=== PATIENT | male | born 1960 ===

== ENCOUNTER 2017-10-13 05:54 | Inpatient (IN) | payer OTHER ==
[2017-10-13 05:54] VITALS: BMI 47.1
[2017-10-13] MEDS ORDERED: Albuterol-Ipratrop 3 mg / 0.5 (3 ml) UD INH STA ×2 (06:22→09:23)
--- NOTE | 2017-10-13 06:36 | ED PDOC ---
HPI: SOB/CHF/COPD Time Seen by Provider: 10/13/17 06:07 Chief Complaint (Nursing): Shortness Of Breath Chief Complaint (Provider): Shortness of Breath History Per: Patient History/Exam Limitations: no limitations Onset/Duration Of Symptoms: Gradual, Persistent, Other (x1 month) Current Symptoms Are (Timing): Still Present Current Respiratory Medications: Other (DMI) Associated Symptoms: Productive Cough. denies: Fever Recently: Treated By A Physician Additional Complaint(s): 57 year old male presents to ED with complaints of SOB x1 month and has a past medical history of CHF, asthma, pulmonary embolism, DVT, and cardiac arrhythmia. Notes that onset of SOB was after returning from [facility] for the winter holidays and that it has been progressively worsening since then. COnfirms he has followed up with PCP Dr. Aguilera and has had negative CT HEAD and CXR to rule out sinus disease. Notes no improvement in symptoms with use of MDIs. (-) fever, (+) cough productive of white phlegm. Notes recently finishing a course of augmentin. PCP: Mariano Aguilera Past Medical History Reviewed: Historical Data, Nursing Documentation, Vital Signs Vital Signs: Last Vital Signs Temp 97.9 F 10/13/17 06:02 Pulse 84 10/13/17 06:02 Resp 18 10/13/17 06:02 BP 92/46 L 10/13/17 06:02 Pulse Ox 96 10/13/17 06:02 - Medical History PMH: Asthma, Cardia Arrhythmia, CHF, Fractures (Knee Caps), HTN, Kidney Stones, Peripheral Edema, Pneumonia, Pulmonary Embolism, Sleep Apnea Denies: HIV, Chronic Kidney Disease - Surgical History Surgical History: Pacemaker - Family History Family History: States: Unknown Family Hx - Social History Current smoker - smoking cessation education provided: No Ex-Smoker (has not smoked in the last 12 months): No Alcohol: None Drugs: Denies - Home Medications Home Medications: Ambulatory Orders Medication Instructions Recorded Allopurinol [Zyloprim] 300 mg PO DAILY #0 tab 04/11/16 Apixaban [Eliquis] 10 mg PO Q12 #0 tab 04/11/16 Carvedilol [Coreg] 25 mg PO BID #0 tab 04/11/16 Cetirizine HCl [All Day Allergy 10 mg PO HS #0 tablet 04/11/16 Relief] Furosemide [Lasix] 40 mg PO DAILY #0 tab 04/11/16 Lisinopril [Zestril] 10 mg PO DAILY #0 tab 04/11/16 Mexiletine 150 mg PO TID #0 cap 04/11/16 Montelukast [Singulair] 10 mg PO HS #0 tab 04/11/16 Sotalol HCl [Sotalol] 160 mg PO BID #0 tablet 04/11/16 Spironolactone [Aldactone] 25 mg PO DAILY #0 tab 04/11/16 - Allergies Allergies/Adverse Reactions: Allergies Allergy/AdvReac Type Severity Reaction Status Date / Time grass pollen Allergy CONGESTION Verified 07/13/17 08:18 Curb-65 Severity Score - CURB-65 Severity Score Confusion: No Respiratory Rate greater than/equal to 30: No Systolic BP <90 or Diastolic BP less than/equal 60mmHg: Yes Age >64: No Curb-65 Score: 1 Percentage 30-day mortality: 2.7% Wells Criteria for PE - Wells Criteria for Pulmonary Embolism Heart Rate >100: No Previous, objectively diagnosed PE or DVT: Yes Hemoptysis: No Malignancy w/treatment within 6 months, or palliative: No Total Score: 1.5 Review of Systems ROS Statement: Except As Marked, All Systems Reviewed And Found Negative Constitutional: Negative for: Fever Respiratory: Positive for: Cough (productive of white phlegm), Shortness of Breath Physical Exam - Reviewed Nursing Documentation Reviewed: Yes Vital Signs Reviewed: Yes - Physical Exam Appears: Positive for: Non-toxic. Negative for: No Acute Distress (morbidly obese) Skin: Positive for: Normal Color, Warm, Dry Eye Exam: Positive for: Normal appearance ENT: Positive for: Normal ENT Inspection Neck: Positive for: Normal Cardiovascular/Chest: Positive for: Regular Rate, Rhythm. Negative for: Murmur Respiratory: Positive for: Normal Breath Sounds, Respiratory Distress (mild respiratory distress) Pulses-Dorsalis Pedis (L): 1+ Pulses-Dorsalis Pedis (R): 1+ Gastrointestinal/Abdominal: Positive for: Soft. Negative for: Tenderness Extremity: Positive for: Normal ROM, Swelling (bilateral lower extremity edema ) . Negative for: Deformity Neurologic/Psych: Positive for: Alert, Oriented. Negative for: Motor/Sensory Deficits - ECG O2 Sat by Pulse Oximetry: 96 (RA) Pulse Ox Interpretation: Normal Medical Decision Making Medical Decision Makin Initial impression: respiratory distress in setting of known CHF, asthma, and history of PE Initial plan: * CT ANGIO CHEST PE PROTOCOL * EKG * BNP * Lact acid, plasma * Trop I * Labs * PTT/PT * CXR * Duonebs 3mL INH * Solumedrol 125mg IVP * BCx * Peak Flow pre/post Tx * US DUPLEX LOWER EXTRM VEIN BILAT * Re-eval 07 Patient will be signed out to Dr. Sierra pending ED work up. Scribe Attestation: Documented by Jaleesa Escalante acting as a scribe for Evan Mcallister MD. Scribe Attestation: All medical record entries made by the Scribe were at my direction and personally dictated by me. I have reviewed the chart and agree that the record accurately reflects my personal performance of the history, physical exam, medical decision making, and the department course for this patient. I have also personally directed, reviewed, and agree with the discharge instructions and disposition. Disposition - Disposition Disposition: Transfer of Care Disposition Time: 07:00 Condition: FAIR Patient Signed Over To: Cheo Sierra Handoff Comments: pending ED work up (CT, US, labs)
[2017-10-13 06:40] LABS: BASO # 0.1 K/uL (0.0-0.2); BASO % 1.1 % (0.0-2.0); EOS # 0.1 K/uL (0.0-0.7); EOS % 1.3 % (0.0-4.0); HEMOGLOBIN 15.1 g/dL (12.0-18.0); LYMPH # 1.8 K/uL (1.0-4.3); LYMPH % 20.9 % (20.0-40.0); MEAN CELL VOLUME 97.1 fl (80.0-94.0); MEAN CORPUSCULAR HEMOGLOBIN 32.6 pg (27.0-31.0); MEAN CORPUSCULAR HGB CONC 33.5 g/dL (33.0-37.0); MEAN PLATELET VOLUME 9.3 fl (7.2-11.7); MONO % 11.8 % (0.0-10.0); NEUT # 5.7 K/uL (1.8-7.0); NEUT % 64.9 % (50.0-75.0); NRBC % 0.2 % (0.0-0.0); RBC 4.64 Mil/uL (4.40-5.90); RED CELL DISTRIBUTION WIDTH 18.4 % (11.5-14.5); WHITE BLOOD COUNT 8.8 K/uL (4.8-10.8)
[2017-10-13 06:49] LABS: ALB/GLOB RATIO 1.1 (1.0-2.1); ALBUMIN 3.6 g/dL (3.5-5.0); ALT/SGPT 31 U/L (21-72); AST/SGOT 21 U/L (17-59); BLOOD UREA NITROGEN 24 mg/dl (9-20); CALCIUM 9.3 mg/dL (8.4-10.2); GFR AFRICAN-AMERICAN > 60; GFR NON-AFRICAN AMERICAN > 60
[2017-10-13 07:01] LABS: B-TYPE NATRIURETIC PEPTIDE 2940 pg/ml (0-900)
[2017-10-13 07:07] LABS: PARTIAL THROMBOPLASTIN TIME 31.2 Seconds (25.6-37.1); PROTHROMBIN TIME 22.8 Seconds (9.8-13.1)
[2017-10-13] MEDS ORDERED: Iodixanol 320 mg/ml 50 ml Sol IV ONE ×3 (07:29)
[2017-10-13] MEDS ORDERED: Sodium Chloride 0.9% 50 ML IV ONE (07:30)
--- NOTE | 2017-10-13 08:29 | CARD ---
APPROVED REPORT EKG Measurement Heart [id number] HI P36 [id number] <Conclusion> Ventricular-paced rhythm with frequent premature ventricular complexes Abnormal ECG
[2017-10-13] MEDS ORDERED: Albuterol-Ipratrop 3 mg / 0.5 (3 ml) UD ONE (08:49)
[2017-10-13] MEDS ORDERED: Sodium Chloride 0.9% 500 ML IV ONE (08:49)
--- NOTE | 2017-10-13 09:06 | US ---
PROCEDURE: Bilateral lower extremity venous duplex Doppler. HISTORY: hx DVT COMPARISON: Lower extremity ultrasound dated 04/08/2016. TECHNIQUE: Bilateral common femoral, superficial femoral, popliteal and posterior tibial veins were evaluated. Flow was assessed with color Doppler, compressibility, assessment of phasic flow and augmentation response. FINDINGS: COMMON FEMORAL VEIN: Right CFV: Unremarkable. Left CFV: Unremarkable. SUPERFICIAL FEMORAL VEIN: Right SFV: Unremarkable. Left SFV: Unremarkable. POPLITEAL VEIN: Right Popliteal: Unremarkable. Left Popliteal: Peripherally oriented echogenic material with compressibility and Doppler flow compatible. POSTERIOR TIBIAL VEIN: Right PTV: Unremarkable. Left PTV: Peripherally oriented echogenic material with compressibility and doppler flow. OTHER FINDINGS: None. IMPRESSION: No evidence of acute deep venous thrombosis.
--- NOTE | 2017-10-13 09:36 | CT ---
PROCEDURE: CT Chest with contrast (Pulmonary Angiogram) HISTORY: chest pain r/o PE COMPARISON: Plain radiograph performed earlier the same day. TECHNIQUE: Axial computed tomography images were obtained of the chest in the pulmonary arterial phase of enhancement. Coronal and sagittal reformatted images were created and reviewed. Intravenous contrast dose: 99 cc Visipaque 320 Radiation dose: Total exam DLP = 482.49 mGy-cm. This CT exam was performed using one or more of the following dose reduction techniques: Automated exposure control, adjustment of the mA and/or kV according to patient size, and/or use of iterative reconstruction technique. FINDINGS: PULMONARY ARTERIES: There are no filling defects in the pulmonary arteries to suggest acute pulmonary embolism. AORTA: No thoracic aortic aneurysm. LUNGS: There is no evidence for consolidation for mass. There are no endobronchial lesions. There is minimal subsegmental atelectasis in the right lung base. PLEURAL SPACES: No pleural effusions or pneumothorax HEART: There is moderate cardiomegaly. No pericardial effusion. LYMPH NODES: No lymphadenopathy. BONES, CHEST WALL: Within normal limits for the patient's age. No fracture or destructive lesion OTHER FINDINGS: Unremarkable. IMPRESSION: No CTA evidence for acute pulmonary embolism. No consolidation, pleural effusion or pneumothorax.
--- NOTE | 2017-10-13 11:11 | RAD ---
HISTORY: Chest pain COMPARISON: 09/16/2017 FINDINGS: LUNGS: The lungs are well inflated. There is interval improvement in pulmonary venous congestion. PLEURA: No significant pleural effusion identified, no pneumothorax apparent. CARDIOVASCULAR: Again seen is severe cardiomegaly. There is stable position of left-sided permanent pacing device. OSSEOUS STRUCTURES: No significant abnormalities. VISUALIZED UPPER ABDOMEN: Normal. OTHER FINDINGS: None. IMPRESSION: No active pulmonary disease. Persistent severe cardiomegaly.
[2017-10-13] MEDS ORDERED: LEVALBUTEROL TARTRATE INH PRN (13:30)
[2017-10-13] MEDS: Albuterol-Ipratrop 3 mg / 0.5 (3 ml) UD INH SCH ×2 (15:51→19:07)
[2017-10-13] MEDS ORDERED: SOTALOL HCL 160 MG PO SCH (17:00)
[2017-10-13] MEDS ORDERED: MOMETASONE FUROATE INH SCH (17:00)
--- NOTE | 2017-10-13 17:58 | CP.PCM.CON ---
History of Present Illness - History of Present Illness History of Present Illness: This 57-year-old white male of [place] ancestry was seen in the emergency department where he was advised to present for evaluation of worsening dyspnea both on exertion and while at rest associated with increasing dependent edema of the lower extremities. He has been ill for the past 2 weeks with the above symptoms and treated successfully for an episode of maxillary sinusitis. He had been given Augmentin 875 twice daily with improvement in his upper airway symptoms and a CT scan performed afterwards which showed no air-fluid levels indicating no acute sinusitis. His dyspnea and dependent edema did not improve and he was advised to present to the emergency department. He denied chest pain or hemoptysis. Does suffer from obstructive sleep apnea and has been using his nasal CPAP nightly. He continues to take all his prescribed medications as directed. Review of Systems - Review of Systems All systems: reviewed and no additional remarkable complaints except - Constitutional Constitutional: Fatigue, Sleep Apnea, Weight Gain - EENT Ears: Ear Pain Nose/Mouth/Throat: Nasal Congestion - Cardiovascular Cardiovascular: Dyspnea on Exertion, Leg Edema, Orthopnea - Respiratory Respiratory: Cough, Dyspnea, Wheezing Past Patient History - Infectious Disease Hx of Infectious Diseases: None - Tetanus Immunizations Tetanus Immunization: Unknown - Past Medical History & Family History Past Medical History?: Yes Pertinent Family History: Coronary artery disease - Past Social History Smoking Status: Never Smoked Chewing Tobacco Use: No Cigar Use: No Alcohol: Social Drugs: Denies Home Situation {Lives}: With Family - CARDIAC Hx Cardia Arrhythmia: Yes Hx Congestive Heart Failure: Yes Hx Internal Defibrillator: Yes Hx Pacemaker: Yes Hx Peripheral Edema: Yes Other/Comment: Dilated cardiomyopathy - PULMONARY Hx Asthma: Yes Hx Pulmonary Embolism: Yes Hx Respiratory Tract Infection: Yes Hx Sleep Apnea: Yes - NEUROLOGICAL Hx Neurological Disorder: No - HEENT Hx Sinusitis: Yes Other/Comment: glasses - RENAL Hx Chronic Kidney Disease: No - ENDOCRINE/METABOLIC Other/Comment: Exogenous obesity - HEMATOLOGICAL/ONCOLOGICAL Hx Blood Disorders: No - INTEGUMENTARY Hx Dermatological Problems: No - MUSCULOSKELETAL/RHEUMATOLOGICAL Hx Falls: No Hx Gout: Yes (Hyperuricemia) - GASTROINTESTINAL Hx Gastrointestinal Disorders: No - GENITOURINARY/GYNECOLOGICAL Hx Genitourinary Disorders: No - PSYCHIATRIC Hx Psychophysiologic Disorder: No Hx Substance Use: No - SURGICAL HISTORY Other/Comment: defibrillator/pacemaker insertion - ANESTHESIA Hx Anesthesia: Yes Hx Anesthesia Reactions: No Hx Malignant Hyperthermia: No Has any member of the family had a problem w/ anesthesia?: No Meds Allergies/Adverse Reactions: Allergies Allergy/AdvReac Type Severity Reaction Status Date / Time grass pollen Allergy CONGESTION Verified 07/13/17 08:18 - Medications Medications: Current Medications Acetaminophen (Tylenol 325mg Tab) 650 mg PO Q6 PRN PRN Reason: Pain, Mild (1-3) Albuterol/Ipratropium (Duoneb 3 Mg/0.5 Mg (3 Ml) Ud) 3 ml INH RQID [facility] Last Admin: 10/13/17 15:51 Dose: 3 ml Allopurinol (Zyloprim) 300 mg PO DAILY [facility] Apixaban (Eliquis) 5 mg PO Q12 [facility] PRN Reason: Protocol Carvedilol (Coreg) 25 mg PO BID [facility] Last Admin: 10/13/17 16:20 Dose: Not Given Home Med (Mometasone Furoate [Asmanex Hfa]) 2 inh INH BID [facility] Lisinopril (Zestril) 10 mg PO DAILY [facility] Last Admin: 10/13/17 16:26 Dose: Not Given Loratadine (Claritin) 10 mg PO DAILY [facility] Mexiletine HCl (Mexiletine) 150 mg PO TID [facility] Last Admin: 10/13/17 16:22 Dose: 150 mg Montelukast Sodium (Singulair) 10 mg PO HS [facility] Sotalol HCl (Betapace) 160 mg PO BID [facility] Last Admin: 10/13/17 16:25 Dose: 160 mg Spironolactone (Aldactone) 25 mg PO DAILY [facility] Tiotropium [place] (Spiriva) 1,000 mcg INH DAILY [facility] Physical Exam - Additional Findings Additional findings: Obese white male who is dyspneic while at rest. Flushed facies. 2+ dependent edema both lower extremities extending from both feet to distal mid calf bilaterally. No cyanosis. No palpable venous cords. No palpable lymphadenopathy. Conjunctivae are pink and there is no scleral icterus. Nasal passages are patent bilaterally. No bleeding or exudate. No tenderness over the maxillary sinuses. Neck is supple and trachea is midline. No palpable thyromegaly. Carotid pulses are well felt and there is no bruit. Pharynx is pink and mucous membranes are moist. No exudate. No dullness on chest percussion. Equal expansion. Breath sounds are well heard bilaterally without any audible wheezing. No bronchial breath sounds or egophony. Few dry rales are heard in the dependent zones bilaterally. Heart sounds are distant and the rhythm is regular. No murmur is heard. Abdomen is obese, nontender with normal bowel sounds. Liver edge is palpable and nontender. Results - Vital Signs Recent Vital Signs: Last Vital Signs Temp 97.9 F 10/13/17 15:53 Pulse 70 10/13/17 16:25 Resp 20 10/13/17 15:53 BP 93/60 L 10/13/17 16:26 Pulse Ox 95 10/13/17 15:53 - Labs Result Diagrams: 10/14/17 04:45 10/15/17 04:55 Labs: Laboratory Results - last 24 hr 10/13/17 10/13/17 10/13/17 06:20 06:20 06:20 WBC 8.8 RBC 4.64 Hgb 15.1 Hct 45.1 MCV 97.1 H D MCH 32.6 H MCHC 33.5 RDW 18.4 H Plt Count 198 MPV 9.3 Neut % (Auto) 64.9 Lymph % (Auto) 20.9 [place] % (Auto) 11.8 H Eos % (Auto) 1.3 Baso % (Auto) 1.1 Neut # 5.7 Lymph # 1.8 Dare # 1.0 H Eos # 0.1 Baso # 0.1 PT INR APTT Sodium 136 Potassium 4.1 Chloride 99 Carbon Dioxide 27 Anion Gap 14 BUN 24 H Creatinine 1.1 Est GFR ( Amer) > 60 Est GFR (Non-Af Amer) > 60 Random Glucose 98 Lactic Acid 1.7 Calcium 9.3 Total Bilirubin 1.6 H AST 21 ALT 31 Alkaline Phosphatase 41 Troponin I 0.0690 NT-Pro-B Natriuret Pep 2940 H Total Protein 6.8 Albumin 3.6 Globulin 3.2 Albumin/Globulin Ratio 1.1 Influenza Typ A,B (EIA) 10/13/17 10/13/17 06:20 06:40 WBC RBC Hgb Hct MCV MCH MCHC RDW Plt Count MPV Neut % (Auto) Lymph % (Auto) [place] % (Auto) Eos % (Auto) Baso % (Auto) Neut # Lymph # Dare # Eos # Baso # PT 22.8 H INR 2.0 H APTT 31.2 Sodium Potassium Chloride Carbon Dioxide Anion Gap BUN Creatinine Est GFR ( Amer) Est GFR (Non-Af Amer) Random Glucose Lactic Acid Calcium Total Bilirubin AST ALT Alkaline Phosphatase Troponin I NT-Pro-B Natriuret Pep Total Protein Albumin Globulin Albumin/Globulin Ratio Influenza Typ A,B (EIA) Negative for flu a/b Assessment & Plan (1) Dilated cardiomyopathy Status: Chronic Priority: High (2) CHF (congestive heart failure) Status: Acute Priority: High (3) Left leg DVT Status: Chronic Priority: High (4) Pulmonary embolism Status: Resolved (5) Asthma Status: Chronic Priority: High (6) Obstructive sleep apnea syndrome in adult Status: Chronic Priority: High - Assessment and Plan (Free Text) Plan: Supplemental oxygen as needed. Cautious use of bronchodilators in view of significant cardiac arrhythmia. Parenteral corticosteroids. Maintain oral anticoagulation. Continued use of nasal CPAP. Cardiac evaluation and further therapy as needed. - Date & Time Date: 10/13/17 Time: 17:58
--- NOTE | 2017-10-13 18:58 | CP.PCM.HP ---
History of Present Illness - History of Present Illness History of Present Illness: This is a 57 year old male with a past medical history of CHF, DVT/PE 3 years ago, now on Eliquis indefinitely, obesity, asthma, polycythemia, history of cardiac arrhythmia for which he has pacemaker/defibrillator, presenting with worsening shortness of breath over the course of about a month. The patient states that he has been getting worsening orthopnea over the last 2 weeks and has had difficulty sleeping even in a chair. He is to the point where he is unable to walk up stairs without stopping due to his dyspnea. He was recently given Augmentin by Dr. Aguilera for URI, productive cough. In the ED, the patient was found to have labored breathing with resp rate of 22 saturating 96% on 2 liters. He was given lasix and nebulizer tx with minimal improvement in his breathing. CXR shows vascular congestion but no pleural effusions. BNP is significantly elevated at 2940. Given his acute on chronic CHF exacerbation and fluid overload, he is to be admitted for further diuresis, close observation, and workup from Dr. David Saunders (cardiology) and Dr. Aguilera (pulmonary). Present on Admission - Present on Admission Any Indicators Present on Admission: Yes History of DVT/PE: Yes Review of Systems - Review of Systems Review of Systems: A 12 point review of systems was conducted and found to be negative other than what was mentioned in HPI Past Patient History - Infectious Disease Hx of Infectious Diseases: None - Tetanus Immunizations Tetanus Immunization: Unknown - Past Medical History & Family History Past Medical History?: Yes - Past Social History Smoking Status: Never Smoked - CARDIAC Hx Cardiac Disorders: Yes Hx Cardia Arrhythmia: Yes Hx Congestive Heart Failure: Yes Hx Internal Defibrillator: Yes Hx Pacemaker: Yes - PULMONARY Hx Respiratory Disorders: Yes Hx Asthma: Yes Hx Pulmonary Embolism: Yes Hx Respiratory Tract Infection: Yes Hx Sleep Apnea: Yes Other/Comment: obesity - NEUROLOGICAL Hx Neurological Disorder: No - HEENT Hx HEENT Problems: No Other/Comment: glasses - RENAL Hx Chronic Kidney Disease: No - ENDOCRINE/METABOLIC Hx Endocrine Disorders: No - HEMATOLOGICAL/ONCOLOGICAL Hx Blood Disorders: No - INTEGUMENTARY Hx Dermatological Problems: No - MUSCULOSKELETAL/RHEUMATOLOGICAL Hx Musculoskeletal Disorders: Yes Hx Falls: No - GASTROINTESTINAL Hx Gastrointestinal Disorders: No - GENITOURINARY/GYNECOLOGICAL Hx Genitourinary Disorders: No - PSYCHIATRIC Hx Psychophysiologic Disorder: No Hx Substance Use: No - SURGICAL HISTORY Other/Comment: defibrillator/pacemaker insertion - ANESTHESIA Hx Anesthesia: Yes Hx Anesthesia Reactions: No Hx Malignant Hyperthermia: No Has any member of the family had a problem w/ anesthesia?: No Meds Allergies/Adverse Reactions: Allergies Allergy/AdvReac Type Severity Reaction Status Date / Time grass pollen Allergy CONGESTION Verified 07/13/17 08:18 Physical Exam - Additional Findings Additional findings: Physical exam: Constitutional- cooperative, awake, alert. OOB to chair Head- NCAT, PERRL Eye- PERRL, EOMI ENT- normal exam, MMM. Neck- normal inspection, supple, no JVD Respiratory- + Mild wheezing, bibasilar rales. labored breathing Cardiovascular- RRR, +S1, +S2 no MRG. + Pacemaker/defibrillator GI/Abdominal- Morbidly obese. normal bowel sounds, soft, no mass, no hsm Skin- warm, dry Extremities Exam- normal capillary refill, normal inspection Neurological Exam- alert, awake, oriented Psych- normal mood, normal affect Results - Vital Signs Recent Vital Signs: Last Vital Signs Temp 97.9 F 10/13/17 15:53 Pulse 70 10/13/17 16:25 Resp 20 10/13/17 15:53 BP 93/60 L 10/13/17 16:26 Pulse Ox 95 10/13/17 15:53 - Labs Result Diagrams: 10/13/17 06:20 10/13/17 06:20 Labs: Laboratory Results - last 24 hr 10/13/17 10/13/17 10/13/17 06:20 06:20 06:20 WBC 8.8 RBC 4.64 Hgb 15.1 Hct 45.1 MCV 97.1 H D MCH 32.6 H MCHC 33.5 RDW 18.4 H Plt Count 198 MPV 9.3 Neut % (Auto) 64.9 Lymph % (Auto) 20.9 [place] % (Auto) 11.8 H Eos % (Auto) 1.3 Baso % (Auto) 1.1 Neut # 5.7 Lymph # 1.8 [place] # 1.0 H Eos # 0.1 Baso # 0.1 PT INR APTT Sodium 136 Potassium 4.1 Chloride 99 Carbon Dioxide 27 Anion Gap 14 BUN 24 H Creatinine 1.1 Est GFR ( Amer) > 60 Est GFR (Non-Af Amer) > 60 Random Glucose 98 Lactic Acid 1.7 Calcium 9.3 Total Bilirubin 1.6 H AST 21 ALT 31 Alkaline Phosphatase 41 Troponin I 0.0690 NT-Pro-B Natriuret Pep 2940 H Total Protein 6.8 Albumin 3.6 Globulin 3.2 Albumin/Globulin Ratio 1.1 Influenza Typ A,B (EIA) 10/13/17 10/13/17 06:20 06:40 WBC RBC Hgb Hct MCV MCH MCHC RDW Plt Count MPV Neut % (Auto) Lymph % (Auto) [place] % (Auto) Eos % (Auto) Baso % (Auto) Neut # Lymph # [place] # Eos # Baso # PT 22.8 H INR 2.0 H APTT 31.2 Sodium Potassium Chloride Carbon Dioxide Anion Gap BUN Creatinine Est GFR ( Amer) Est GFR (Non-Af Amer) Random Glucose Lactic Acid Calcium Total Bilirubin AST ALT Alkaline Phosphatase Troponin I NT-Pro-B Natriuret Pep Total Protein Albumin Globulin Albumin/Globulin Ratio Influenza Typ A,B (EIA) Negative for flu a/b Assessment & Plan - Assessment and Plan (Free Text) Plan: ASSESSMENT 1) CHF exacerbation and fluid overload, last known echo - Echo 04/09/2016: moderately dilated LV, mild to moderate LVH, EF 20-25%, global hypokinesis of LV. Hypotension - Admit to cardiac telemetry - Consultation with Dr. David Saunders - Continue Lasix 40 mg po daily and is being given 20 mg IV today. Patient hypotensive around 93/60, diuresing carefully - I & O - Daily weights - Echo in AM - Daily EKG 2) Asthma exacerbation - Dr. Aguilera on consultation - [place]fr[place] tx - continue advair, mometasone - Monitor pulse ox 3) History of left leg DVT/PE on Eliquis indefinitely - Continue Eliquis - Chronic 4) History of RICARDO in adult - CPAP HS - May use own cpap if he brings from home 5) Obesity - Chronic 6) History of unspecified cardiac arrhythmia with pacemaker/defibrillation placement 7) DVT prophylaxis - Eliquis
[2017-10-13] MEDS ORDERED: methylPREDNISolone 30 MG in Sodium Chloride 0.9% 50 ML IVPB SCH (19:00)
[2017-10-13] MEDS: MethylPREDNISolone 40 mg Vial IVP SCH (21:03)
[2017-10-14] MEDS: MethylPREDNISolone 40 mg Vial IVP SCH ×2 (05:00→20:46)
[2017-10-14 07:02] LABS: HEMOGLOBIN 14.3 g/dL (12.0-18.0); MEAN CELL VOLUME 97.6 fl (80.0-94.0); MEAN CORPUSCULAR HEMOGLOBIN 32.7 pg (27.0-31.0); MEAN CORPUSCULAR HGB CONC 33.5 g/dL (33.0-37.0); RBC 4.37 Mil/uL (4.40-5.90); RED CELL DISTRIBUTION WIDTH 18.2 % (11.5-14.5); WHITE BLOOD COUNT 13.4 K/uL (4.8-10.8)
[2017-10-14 07:34] LABS: BLOOD UREA NITROGEN 32 mg/dl (9-20); CALCIUM 9.4 mg/dL (8.4-10.2); GFR AFRICAN-AMERICAN > 60; GFR NON-AFRICAN AMERICAN > 60
[2017-10-14] MEDS: Albuterol-Ipratrop 3 mg / 0.5 (3 ml) UD INH SCH ×2 (08:41→11:20)
[2017-10-14] MEDS: Tiotropium 18 mcg Cap For Inhalation INH SCH (09:00)
--- NOTE | 2017-10-14 09:45 | CP.PCM.CON ---
History of Present Illness - History of Present Illness History of Present Illness: This 57-year-old chronically overweight man with congestive cardiomyopathy and severe bronchial asthma, chronic exogenous obesity and obstructive sleep apnea as well as chronic atrial fibrillation and a history of pulmonary embolism who has had an AICD implanted more than 8 years back, was hospitalized for profound shortness of breath after he was found to have developed upper respiratory infection following an eight-day vacation in [facility]. The patient had been given oral corticosteroid-induced for severe bronchial asthma/bronchitis and the patient had rapidly gained weight and developed profound shortness of breath, finally requiring him to come to the emergency room. Following bronchodilates retreatment and intravenous diuretics his coughing spells and dyspnea has become less, though the patient has not been very active after being hospitalized. He has used his CPAP machine last night and slept well. This morning the patient was found to be sitting up at the edge of the bed eating his breakfast but continued to have protracted coughing spells followed by profound dyspnea. Physical examination shows is markedly OBs young man sitting up eating his breakfast. Afebrile with a pulse rate of 76 bpm irregularly irregular with a blood pressure of 102/74 mmHg. His jugular venous pressure could not be evaluated because of a short thick neck. There was presence of pitting pedal edema on both sides. His pedal pulses were difficult to palpate. Extremities were warm nailbeds were pink. There was no central or peripheral cyanosis. He does respite atrial rate was 18-20 breaths per minute but he could carry on a conversation. The apex was not palpable. The first and second heart sounds were distant. His expiration was prolonged and there were scattered crepitations and rhonchi audible all over his chest. His abdomen was quite protuberant his liver and spleen could not be palpated. His electro-cardiogram showed atrial fibrillation with a VVI paced rhythm with evidence of biventricular pacing. His lab data was reviewed. His serum potassium level was 5 mg/L. His chest x-ray and CT of the chest were also reviewed. Impression: Acute exacerbation of bronchospasm following an upper respiratory tract infection, in a patient with a long history of bronchial asthma. Congestive cardiac myopathy with chronic atrial fibrillation and status post AICD implant. Obstructive sleep apnea. Marked exogenous obesity. The patient is being aggressively treated for bronchospasm and upper respiratory tract infection. I have adjusted his diuretics therapy given a history of long-standing systolic blood pressure in the range of 80-90 mmHg. I have discussed his case with Dr. Aguilera and adjusted his medications appropriately. Past Patient History - Infectious Disease Hx of Infectious Diseases: None - Tetanus Immunizations Tetanus Immunization: Unknown - Past Medical History & Family History Past Medical History?: Yes - Past Social History Smoking Status: Never Smoked - CARDIAC Hx Cardiac Disorders: Yes Hx Cardia Arrhythmia: Yes Hx Congestive Heart Failure: Yes Hx Internal Defibrillator: Yes Hx Pacemaker: Yes - PULMONARY Hx Respiratory Disorders: Yes Hx Asthma: Yes Hx Pulmonary Embolism: Yes Hx Respiratory Tract Infection: Yes Hx Sleep Apnea: Yes Other/Comment: obesity - NEUROLOGICAL Hx Neurological Disorder: No - HEENT Hx HEENT Problems: No Other/Comment: glasses - RENAL Hx Chronic Kidney Disease: No - ENDOCRINE/METABOLIC Hx Endocrine Disorders: No - HEMATOLOGICAL/ONCOLOGICAL Hx Blood Disorders: No - INTEGUMENTARY Hx Dermatological Problems: No - MUSCULOSKELETAL/RHEUMATOLOGICAL Hx Musculoskeletal Disorders: Yes Hx Falls: No - GASTROINTESTINAL Hx Gastrointestinal Disorders: No - GENITOURINARY/GYNECOLOGICAL Hx Genitourinary Disorders: No - PSYCHIATRIC Hx Psychophysiologic Disorder: No Hx Substance Use: No - SURGICAL HISTORY Other/Comment: defibrillator/pacemaker insertion - ANESTHESIA Hx Anesthesia: Yes Hx Anesthesia Reactions: No Hx Malignant Hyperthermia: No Has any member of the family had a problem w/ anesthesia?: No Meds Allergies/Adverse Reactions: Allergies Allergy/AdvReac Type Severity Reaction Status Date / Time grass pollen Allergy CONGESTION Verified 07/13/17 08:18 - Medications Medications: Current Medications Acetaminophen (Tylenol 325mg Tab) 650 mg PO Q6 PRN PRN Reason: Pain, Mild (1-3) Albuterol/Ipratropium (Duoneb 3 Mg/0.5 Mg (3 Ml) Ud) 3 ml INH RQID [facility] Last Admin: 10/14/17 08:41 Dose: 3 ml Allopurinol (Zyloprim) 300 mg PO DAILY [facility] Apixaban (Eliquis) 5 mg PO Q12 [facility] PRN Reason: Protocol Last Admin: 10/13/17 21:02 Dose: 5 mg Carvedilol (Coreg) 25 mg PO BID [facility] Furosemide (Lasix) 40 mg IVP BID [facility] Home Med (Mometasone Furoate [Asmanex Hfa]) 2 inh INH BID [facility] Lisinopril (Zestril) 10 mg PO DAILY [facility] Loratadine (Claritin) 10 mg PO DAILY [facility] Methylprednisolone (Solu-Medrol) 30 mg IVP Q8@0500,1300,2100 [facility] Mexiletine HCl (Mexiletine) 150 mg PO TID [facility] Last Admin: 10/13/17 16:22 Dose: 150 mg Montelukast Sodium (Singulair) 10 mg PO HS [facility] Last Admin: 10/13/17 21:02 Dose: 10 mg Sotalol HCl (Betapace) 160 mg PO BID [facility] Spironolactone (Aldactone) 25 mg PO DAILY [facility] Tiotropium [place] (Spiriva) 18 mcg INH DAILY [facility] Results - Vital Signs Recent Vital Signs: Last Vital Signs Temp 97.3 F L 10/14/17 08:27 Pulse 66 10/14/17 08:27 Resp 20 10/14/17 08:27 BP 90/50 L 10/14/17 08:27 Pulse Ox 96 10/14/17 08:27 - Labs Result Diagrams: 10/14/17 04:45 10/14/17 04:45 Labs: Laboratory Results - last 24 hr 10/14/17 10/14/17 04:45 04:45 WBC 13.4 H D RBC 4.37 L Hgb 14.3 Hct 42.7 MCV 97.6 H MCH 32.7 H MCHC 33.5 RDW 18.2 H Plt Count 185 Sodium 139 Potassium 5.0 Chloride 102 Carbon Dioxide 27 Anion Gap 15 BUN 32 H Creatinine 1.1 Est GFR ( Amer) > 60 Est GFR (Non-Af Amer) > 60 Random Glucose 163 H Calcium 9.4
--- NOTE | 2017-10-14 12:18 | CP.PCM.PN ---
Subjective - Date & Time of Evaluation Date of Evaluation: 10/14/17 Time of Evaluation: 12:16 - Subjective Subjective: Seen earlier this morning, asleep, wearing nCPAP. Returned to his room later for exam and he was seated in a bedside chair. He appears comfortable at rest, but does develop SOB with conversation. He does admit to having a good night's sleep, the first in a number of days. He was seen by cardiology this morning as well. Vital signs have been stable and he has been afebrile. He has a borderline low blood pressure chronically because of his medical regimen. CTA chest done yesterday in the ER did not show any pulmonary emboli or infiltrates. Dependant edema of both LE's has decreased significantly from admission. There is no cyanosis and the extremities are warm to the touch. Neck is supple and no adenopathy is palpable. Pharynx remains pink and moist w/o exudate. No dullness on percussion anteriorly or posterorly. Breath sounds are present bilaterally w/o audible wheezing. The expiratory phase is still prolonged, few lower lobe medium rales are present bilaterally. Heart sounds are distant and regular. Abdomen is soft, fleshy and obese with normal bowel sounds. Echocardiogram has been requested. If any pulmonary hypertension identified we'll ask for V/Q lung scan as well. Will continue LAMA therapy, but change beta agonist to low dose levalbuterol ( arrhythmia potential). Non-specific beta blockade may be impacting negatively on his underlying lung function; will monitor. Objective - Vital Signs/Intake and Output Vital Signs (last 24 hours): Temp Pulse Resp BP Pulse Ox 96.9 F L 72 18 95/62 L 94 L 10/14/17 11:49 10/14/17 11:49 10/14/17 11:49 10/14/17 11:49 10/14/17 11:49 - Medications Medications: Current Medications Acetaminophen (Tylenol 325mg Tab) 650 mg PO Q6 PRN PRN Reason: Pain, Mild (1-3) Albuterol/Ipratropium (Duoneb 3 Mg/0.5 Mg (3 Ml) Ud) 3 ml INH RQID [facility] Last Admin: 10/14/17 11:20 Dose: 3 ml Allopurinol (Zyloprim) 300 mg PO DAILY [facility] Last Admin: 10/14/17 09:00 Dose: 300 mg Apixaban (Eliquis) 5 mg PO Q12 [facility] PRN Reason: Protocol Last Admin: 10/14/17 10:14 Dose: 5 mg Carvedilol (Coreg) 25 mg PO BID [facility] Furosemide (Lasix) 40 mg IVP BID [facility] Home Med (Mometasone Furoate [Asmanex Hfa]) 2 inh INH BID [facility] Lisinopril (Zestril) 10 mg PO DAILY [facility] Loratadine (Claritin) 10 mg PO DAILY [facility] Last Admin: 10/14/17 09:00 Dose: 10 mg Methylprednisolone (Solu-Medrol) 30 mg IVP Q8@0500,1300,2100 [facility] Mexiletine HCl (Mexiletine) 150 mg PO TID [facility] Last Admin: 10/14/17 09:00 Dose: 150 mg Montelukast Sodium (Singulair) 10 mg PO HS [facility] Last Admin: 10/13/17 21:02 Dose: 10 mg Sotalol HCl (Betapace) 160 mg PO BID [facility] Spironolactone (Aldactone) 25 mg PO DAILY [facility] Last Admin: 10/14/17 09:00 Dose: 25 mg Tiotropium [place] (Spiriva) 18 mcg INH DAILY [facility] Last Admin: 10/14/17 09:00 Dose: 18 mcg - Labs Labs: 10/14/17 04:45 10/14/17 04:45 PT 22.8 Seconds (9.8-13.1) H 10/13/17 06:20 INR 2.0 (0.9-1.2) H 10/13/17 06:20 APTT 31.2 Seconds (25.6-37.1) 10/13/17 06:20
--- NOTE | 2017-10-14 12:39 | CP.PCM.PN ---
Subjective - Date & Time of Evaluation Date of Evaluation: 10/14/17 Time of Evaluation: 12:00 - Subjective Subjective: No fever dyspnea on exertion - able to go to the bathroom off Oxygen however feels very SOB coming back noticed pt has to stop to catch breath while talking no CP no abd pain Pedal edema better Objective - Vital Signs/Intake and Output Vital Signs (last 24 hours): Temp Pulse Resp BP Pulse Ox 96.9 F L 72 18 95/62 L 94 L 10/14/17 11:49 10/14/17 11:49 10/14/17 11:49 10/14/17 12:18 10/14/17 11:49 - Medications Medications: Current Medications Acetaminophen (Tylenol 325mg Tab) 650 mg PO Q6 PRN PRN Reason: Pain, Mild (1-3) Albuterol/Ipratropium (Duoneb 3 Mg/0.5 Mg (3 Ml) Ud) 3 ml INH RQID [facility] Last Admin: 10/14/17 11:20 Dose: 3 ml Allopurinol (Zyloprim) 300 mg PO DAILY [facility] Last Admin: 10/14/17 09:00 Dose: 300 mg Apixaban (Eliquis) 5 mg PO Q12 [facility] PRN Reason: Protocol Last Admin: 10/14/17 10:14 Dose: 5 mg Carvedilol (Coreg) 25 mg PO BID [facility] Furosemide (Lasix) 40 mg IVP BID [facility] Last Admin: 10/14/17 12:18 Dose: 40 mg Home Med (Mometasone Furoate [Asmanex Hfa]) 2 inh INH BID [facility] Lisinopril (Zestril) 10 mg PO DAILY [facility] Loratadine (Claritin) 10 mg PO DAILY [facility] Last Admin: 10/14/17 09:00 Dose: 10 mg Methylprednisolone (Solu-Medrol) 30 mg IVP Q8@0500,1300,2100 [facility] Mexiletine HCl (Mexiletine) 150 mg PO TID [facility] Last Admin: 10/14/17 09:00 Dose: 150 mg Montelukast Sodium (Singulair) 10 mg PO HS [facility] Last Admin: 10/13/17 21:02 Dose: 10 mg Sotalol HCl (Betapace) 160 mg PO BID [facility] Spironolactone (Aldactone) 25 mg PO DAILY [facility] Last Admin: 10/14/17 09:00 Dose: 25 mg Tiotropium [place] (Spiriva) 18 mcg INH DAILY [facility] Last Admin: 10/14/17 09:00 Dose: 18 mcg - Labs Labs: 10/14/17 04:45 10/14/17 04:45 PT 22.8 Seconds (9.8-13.1) H 10/13/17 06:20 INR 2.0 (0.9-1.2) H 10/13/17 06:20 APTT 31.2 Seconds (25.6-37.1) 10/13/17 06:20 - Constitutional Appears: No Acute Distress - Head Exam Head Exam: NORMAL INSPECTION, NORMOCEPHALIC - Eye Exam Eye Exam: EOMI, Normal appearance, PERRL Pupil Exam: NORMAL ACCOMODATION - ENT Exam ENT Exam: Mucous Membranes Moist, Normal External Ear Exam - Neck Exam Neck Exam: Full ROM. absent: Meningismus - Respiratory Exam Respiratory Exam: Decreased Breath Sounds, NORMAL BREATHING PATTERN. absent: Respiratory Distress - Cardiovascular Exam Cardiovascular Exam: REGULAR RHYTHM, +S1, +S2 Additional comments: Left AICD - GI/Abdominal Exam GI & Abdominal Exam: Soft, Normal Bowel Sounds. absent: Tenderness - Extremities Exam Extremities Exam: Normal Capillary Refill, Pedal Edema. absent: Calf Tenderness - Back Exam Back Exam: Full ROM. absent: CVA tenderness (L), CVA tenderness (R) - Neurological Exam Neurological Exam: Alert, Awake, CN II-XII Intact, Oriented x3 Neuro motor strength exam: Left Upper Extremity: 5, Right Upper Extremity: 5, Left Lower Extremity: 5, Right Lower Extremity: 5 - Psychiatric Exam Psychiatric exam: Normal Affect - Skin Skin Exam: Dry, Warm Assessment and Plan - Assessment and Plan (Free Text) Assessment: 1) Acute on Chronic CHF exacerbation and fluid overload, systolic and diastolic dysfunction Echo - 04/09/2016: moderately dilated LV, mild to moderate LVH, EF 20-25%, global hypokinesis of LV -rpt ECHO - pt still with SOB, pedal edema better - Continue Lasix , Coreg , Lisinopril, Aldactone - I & O - Daily weights - Cardiology following pt - Dr David Saunders 2) Asthma exacerbation - Dr. 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
[2017-10-14] MEDS ORDERED: MethylPREDNISolone 40 mg Vial IVP SCH (13:00)
[2017-10-14] MEDS: Levalbuterol 0.63 MG/3 ML Inhal Soln UD INH SCH (15:25)
[2017-10-14] MEDS ORDERED: methylPREDNISolone 30 MG in Sodium Chloride 0.9% 50 ML IV SCH (21:00)
[2017-10-15] MEDS: Levalbuterol 0.63 MG/3 ML Inhal Soln UD INH SCH ×4 (00:40→23:56)
[2017-10-15 05:40] LABS: ALB/GLOB RATIO 1.1 (1.0-2.1); ALBUMIN 3.2 g/dL (3.5-5.0); ALT/SGPT 31 U/L (21-72); AST/SGOT 16 U/L (17-59); BLOOD UREA NITROGEN 36 mg/dl (9-20); CALCIUM 9.3 mg/dL (8.4-10.2); GFR AFRICAN-AMERICAN > 60; GFR NON-AFRICAN AMERICAN > 60
[2017-10-15] MEDS: MethylPREDNISolone 40 mg Vial IVP SCH ×2 (09:00→21:18)
[2017-10-15] MEDS: Tiotropium 18 mcg Cap For Inhalation INH SCH (09:49)
--- NOTE | 2017-10-15 10:23 | CP.PCM.PN ---
Subjective - Date & Time of Evaluation Date of Evaluation: 10/15/17 Time of Evaluation: 10:00 - Subjective Subjective: C/O severe coughing spells over last 24 hrs (?? bronc spasm aggravated by Coreg) HR 68 BPM BP 100/72 mm Hg Pedal oedema unchanged Has lost 1.5 lbs only Labs show stable BUN/ Creatinin and electrolytes Will withold Coreg (still on Sotolol) Will increase Aldactone to encourage diuresis Will monitor labs and BP Objective - Vital Signs/Intake and Output Vital Signs (last 24 hours): Temp Pulse Resp BP Pulse Ox 98.6 F 70 18 102/59 L 98 10/15/17 08:00 10/15/17 09:50 10/15/17 08:00 10/15/17 09:50 10/15/17 08:00 - Medications Medications: Current Medications Acetaminophen (Tylenol 325mg Tab) 650 mg PO Q6 PRN PRN Reason: Pain, Mild (1-3) Allopurinol (Zyloprim) 300 mg PO DAILY [facility] Last Admin: 10/15/17 09:50 Dose: 300 mg Apixaban (Eliquis) 5 mg PO Q12 [facility] PRN Reason: Protocol Last Admin: 10/15/17 09:50 Dose: 5 mg Carvedilol (Coreg) 25 mg PO BID [facility] Last Admin: 10/15/17 09:49 Dose: 25 mg Furosemide (Lasix) 40 mg IVP BID [facility] Last Admin: 10/15/17 09:50 Dose: 40 mg Levalbuterol HCl (Xopenex) 0.63 mg INH RQ8 [facility] Last Admin: 10/15/17 07:52 Dose: 0.63 mg Lisinopril (Zestril) 10 mg PO DAILY [facility] Last Admin: 10/15/17 09:48 Dose: 10 mg Loratadine (Claritin) 10 mg PO DAILY [facility] Last Admin: 10/15/17 09:51 Dose: 10 mg Methylprednisolone (Solu-Medrol) 30 mg IVP Q12 [facility] Last Admin: 10/14/17 20:46 Dose: 30 mg Mexiletine HCl (Mexiletine) 150 mg PO TID [facility] Last Admin: 10/15/17 09:50 Dose: 150 mg Montelukast Sodium (Singulair) 10 mg PO HS [facility] Last Admin: 10/14/17 20:59 Dose: 10 mg Sotalol HCl (Betapace) 160 mg PO BID [facility] Last Admin: 10/15/17 09:49 Dose: 160 mg Spironolactone (Aldactone) 25 mg PO DAILY [facility] Last Admin: 10/15/17 09:49 Dose: 25 mg Tiotropium [place] (Spiriva) 18 mcg INH DAILY [facility] Last Admin: 10/15/17 09:49 Dose: 18 mcg - Labs Labs: 10/14/17 04:45 10/15/17 04:55 PT 22.8 Seconds (9.8-13.1) H 10/13/17 06:20 INR 2.0 (0.9-1.2) H 10/13/17 06:20 APTT 31.2 Seconds (25.6-37.1) 10/13/17 06:20
--- NOTE | 2017-10-15 10:34 | CP.PCM.PN ---
Subjective - Date & Time of Evaluation Date of Evaluation: 10/15/17 Time of Evaluation: 10:28 - Subjective Subjective: Seated in bedside chair this morning, coughing. Has complaint of overnight cough interfering with sleep. Cardiology note from this morning appreciated. Vital signs notes, no problems with oxygenation. Uses nCPAP nitely. Dependant edema still ++ in both legs. No cyanosis. Pharynx pink and moist. Neck supple and trachea midline. No dullness on chest percussion. Breath sounds are well heard, mildly reduced. No audible wheezes or bronchial breath sounds. Few dry rales in lower lobes. No rub. Heart sounds are distant, regular rhythm. Awaiting echocardiogram today. Continue current medications with reduced dose of carvedilol. Continue nCPAP. Objective - Vital Signs/Intake and Output Vital Signs (last 24 hours): Temp Pulse Resp BP Pulse Ox 98.6 F 70 18 102/59 L 98 10/15/17 08:00 10/15/17 09:50 10/15/17 08:00 10/15/17 09:50 10/15/17 08:00 - Medications Medications: Current Medications Acetaminophen (Tylenol 325mg Tab) 650 mg PO Q6 PRN PRN Reason: Pain, Mild (1-3) Allopurinol (Zyloprim) 300 mg PO DAILY [facility] Last Admin: 10/15/17 09:50 Dose: 300 mg Apixaban (Eliquis) 5 mg PO Q12 [facility] PRN Reason: Protocol Last Admin: 10/15/17 09:50 Dose: 5 mg Carvedilol (Coreg) 12.5 mg PO BID [facility] Furosemide (Lasix) 40 mg IVP BID [facility] Last Admin: 10/15/17 09:50 Dose: 40 mg Guaifenesin/Dextromethorphan (Mucinex-Dm 600-30 Mg) 1 tab PO BID [facility] Levalbuterol HCl (Xopenex) 0.63 mg INH RQ8 [facility] Last Admin: 10/15/17 07:52 Dose: 0.63 mg Lisinopril (Zestril) 10 mg PO DAILY [facility] Last Admin: 10/15/17 09:48 Dose: 10 mg Loratadine (Claritin) 10 mg PO DAILY [facility] Last Admin: 10/15/17 09:51 Dose: 10 mg Methylprednisolone (Solu-Medrol) 30 mg IVP Q12 [facility] Last Admin: 10/14/17 20:46 Dose: 30 mg Mexiletine HCl (Mexiletine) 150 mg PO TID [facility] Last Admin: 10/15/17 09:50 Dose: 150 mg Montelukast Sodium (Singulair) 10 mg PO HS [facility] Last Admin: 10/14/17 20:59 Dose: 10 mg Sotalol HCl (Betapace) 160 mg PO BID [facility] Last Admin: 10/15/17 09:49 Dose: 160 mg Spironolactone (Aldactone) 50 mg PO DAILY [facility] Tiotropium [place] (Spiriva) 18 mcg INH DAILY [facility] Last Admin: 10/15/17 09:49 Dose: 18 mcg - Labs Labs: 10/14/17 04:45 10/15/17 04:55 PT 22.8 Seconds (9.8-13.1) H 10/13/17 06:20 INR 2.0 (0.9-1.2) H 10/13/17 06:20 APTT 31.2 Seconds (25.6-37.1) 10/13/17 06:20 Assessment and Plan (1) Dilated cardiomyopathy Status: Chronic (2) CHF (congestive heart failure) Status: Acute (3) Left leg DVT Status: Chronic (4) Pulmonary embolism Status: Resolved (5) Asthma Status: Chronic (6) Obstructive sleep apnea syndrome in adult Status: Chronic
[2017-10-15] MEDS: guaiFENesin-DM 600-30 mg ER Tab PO SCH ×3 (11:10→21:32)
--- NOTE | 2017-10-15 11:21 | CP.PCM.PN ---
Subjective - Date & Time of Evaluation Date of Evaluation: 10/15/17 Time of Evaluation: 10:00 - Subjective Subjective: Pt states he still feels short of breath gets coughing spells he felt better yesterday than today no fever + pedal edema no CP no abd pain Objective - Vital Signs/Intake and Output Vital Signs (last 24 hours): Temp Pulse Resp BP Pulse Ox 98.6 F 70 18 102/59 L 98 10/15/17 08:00 10/15/17 09:50 10/15/17 08:00 10/15/17 09:50 10/15/17 08:00 - Medications Medications: Current Medications Acetaminophen (Tylenol 325mg Tab) 650 mg PO Q6 PRN PRN Reason: Pain, Mild (1-3) Allopurinol (Zyloprim) 300 mg PO DAILY [facility] Last Admin: 10/15/17 09:50 Dose: 300 mg Apixaban (Eliquis) 5 mg PO Q12 [facility] PRN Reason: Protocol Last Admin: 10/15/17 09:50 Dose: 5 mg Carvedilol (Coreg) 12.5 mg PO BID [facility] Furosemide (Lasix) 40 mg IVP BID [facility] Last Admin: 10/15/17 09:50 Dose: 40 mg Guaifenesin/Dextromethorphan (Mucinex-Dm 600-30 Mg) 1 tab PO BID [facility] Last Admin: 10/15/17 11:10 Dose: 1 tab Levalbuterol HCl (Xopenex) 0.63 mg INH RQ8 [facility] Last Admin: 10/15/17 07:52 Dose: 0.63 mg Lisinopril (Zestril) 10 mg PO DAILY [facility] Last Admin: 10/15/17 09:48 Dose: 10 mg Loratadine (Claritin) 10 mg PO DAILY [facility] Last Admin: 10/15/17 09:51 Dose: 10 mg Methylprednisolone (Solu-Medrol) 30 mg IVP Q12 [facility] Last Admin: 10/15/17 09:00 Dose: 30 mg Mexiletine HCl (Mexiletine) 150 mg PO TID [facility] Last Admin: 10/15/17 09:50 Dose: 150 mg Montelukast Sodium (Singulair) 10 mg PO HS [facility] Last Admin: 10/14/17 20:59 Dose: 10 mg Sotalol HCl (Betapace) 160 mg PO BID [facility] Last Admin: 10/15/17 09:49 Dose: 160 mg Spironolactone (Aldactone) 50 mg PO DAILY [facility] Tiotropium [place] (Spiriva) 18 mcg INH DAILY [facility] Last Admin: 10/15/17 09:49 Dose: 18 mcg - Labs Labs: 10/14/17 04:45 10/15/17 04:55 PT 22.8 Seconds (9.8-13.1) H 10/13/17 06:20 INR 2.0 (0.9-1.2) H 10/13/17 06:20 APTT 31.2 Seconds (25.6-37.1) 10/13/17 06:20 - Constitutional Appears: No Acute Distress - Head Exam Head Exam: NORMAL INSPECTION, NORMOCEPHALIC - Eye Exam Eye Exam: EOMI, Normal appearance, PERRL Pupil Exam: NORMAL ACCOMODATION - ENT Exam ENT Exam: Mucous Membranes Moist, Normal External Ear Exam - Neck Exam Neck Exam: Full ROM. absent: Meningismus - Respiratory Exam Respiratory Exam: Decreased Breath Sounds, NORMAL BREATHING PATTERN. absent: Respiratory Distress - Cardiovascular Exam Cardiovascular Exam: REGULAR RHYTHM, +S1, +S2 Additional comments: Left AICD - GI/Abdominal Exam GI & Abdominal Exam: Soft, Normal Bowel Sounds. absent: Tenderness - Extremities Exam Extremities Exam: Normal Capillary Refill, Pedal Edema. absent: Calf Tenderness - Back Exam Back Exam: Full ROM. absent: CVA tenderness (L), CVA tenderness (R) - Neurological Exam Neurological Exam: Alert, Awake, CN II-XII Intact, Oriented x3 Neuro motor strength exam: Left Upper Extremity: 5, Right Upper Extremity: 5, Left Lower Extremity: 5, Right Lower Extremity: 5 - Psychiatric Exam Psychiatric exam: Normal Affect - Skin Skin Exam: Dry, Warm Assessment and Plan - Assessment and Plan (Free Text) Assessment: This is a 57 year old male with a past medical history of CHF, DVT/PE 3 years ago, now on Eliquis indefinitely, obesity, asthma, polycythemia, history of cardiac arrhythmia for which he has pacemaker/defibrillator, presented in the ED with worsening shortness of breath over the course of about a month. The patient states that he has been getting worsening orthopnea over the last 2 weeks and has had difficulty sleeping even in a chair. He is to the point where he is unable to walk up stairs without stopping due to his dyspnea. 1) Acute on Chronic CHF exacerbation and fluid overload, systolic and diastolic dysfunction Echo - 04/09/2016: moderately dilated LV, mild to moderate LVH, EF 20-25%, global hypokinesis of LV - will rpt ECHO- discussed with Dr Saunders , he wants ECHO done with contrast - pt still with SOB, and coughing spells , pedal edema better - Continue Lasix , Coreg , Lisinopril, Aldactone - discussed with Dr Saunders - decrease Coreg back to 12.5 mg bid due to worsening of cough after dose was increased, increase Aldactone dose - I & O - Daily weights - Cardiology following pt - Dr David Saunders 2) Asthma exacerbation - Dr. 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
[2017-10-16 06:26] LABS: ALB/GLOB RATIO 1.1 (1.0-2.1); ALBUMIN 3.4 g/dL (3.5-5.0); ALT/SGPT 31 U/L (21-72); AST/SGOT 14 U/L (17-59); BLOOD UREA NITROGEN 42 mg/dl (9-20); CALCIUM 9.5 mg/dL (8.4-10.2); GFR AFRICAN-AMERICAN > 60; GFR NON-AFRICAN AMERICAN > 60
[2017-10-16 06:30] LABS: B-TYPE NATRIURETIC PEPTIDE 5150 pg/ml (0-900)
[2017-10-16] MEDS: Levalbuterol 0.63 MG/3 ML Inhal Soln UD INH SCH ×2 (07:56→16:10)
[2017-10-16] MEDS: guaiFENesin-DM 600-30 mg ER Tab PO SCH ×2 (09:42→16:52)
[2017-10-16] MEDS: MethylPREDNISolone 40 mg Vial IVP SCH (09:43)
[2017-10-16] MEDS: Tiotropium 18 mcg Cap For Inhalation INH SCH (09:44)
--- NOTE | 2017-10-16 10:49 | CP.PCM.PN ---
Subjective - Date & Time of Evaluation Date of Evaluation: 10/16/17 Time of Evaluation: 10:42 - Subjective Subjective: Seated in bedside chair. Cough is much less than before. Slept fairly well last night. Vital signs have remained stable. Carvedilol dose reduced by 50%. Weight has decreased by 2 pounds since yesterday and 4 pounds since admission. Dependant edema is decreasing, mild hyperemia of epidermis w/o increased warmth. No cyanosis or calf tenderness. No palpable adenopathy. Neck supple and trachea midline. No dullness on chest percussion. Breath sounds are well heard bilaterally w/o audible wheezing or bronchial breathing. No audible rales. Only rare sonorous rhonchi in the lower lobes. Nares are patent w/o bleeding or exudate. Heart sounds are distant and the rhythm remains regular. Hopeful that echocardiogram is done today. Present medical regimen seems well tolerated. Stressed need for diligent diet and weight loss after discharge. Continues to use nCPAP as prescribed. Reduce solumedrol to 30MG once daily. Objective - Vital Signs/Intake and Output Vital Signs (last 24 hours): Temp Pulse Resp BP Pulse Ox 97.6 F 71 18 104/70 96 10/16/17 08:00 10/16/17 09:39 10/16/17 08:00 10/16/17 09:40 10/16/17 08:00 - Medications Medications: Current Medications Acetaminophen (Tylenol 325mg Tab) 650 mg PO Q6 PRN PRN Reason: Pain, Mild (1-3) Allopurinol (Zyloprim) 300 mg PO DAILY [facility] Last Admin: 10/16/17 09:44 Dose: 300 mg Apixaban (Eliquis) 5 mg PO Q12 [facility] PRN Reason: Protocol Last Admin: 10/16/17 09:40 Dose: 5 mg Carvedilol (Coreg) 12.5 mg PO BID [facility] Last Admin: 10/16/17 09:40 Dose: 12.5 mg Furosemide (Lasix) 40 mg IVP BID [facility] Last Admin: 10/16/17 09:40 Dose: 40 mg Guaifenesin/Dextromethorphan (Mucinex-Dm 600-30 Mg) 1 tab PO BID [facility] Last Admin: 10/16/17 09:42 Dose: 1 tab Levalbuterol HCl (Xopenex) 0.63 mg INH RQ8 [facility] Last Admin: 10/16/17 07:56 Dose: 0.63 mg Lisinopril (Zestril) 10 mg PO DAILY [facility] Last Admin: 10/16/17 09:44 Dose: 10 mg Loratadine (Claritin) 10 mg PO DAILY [facility] Last Admin: 10/16/17 09:39 Dose: 10 mg Methylprednisolone (Solu-Medrol) 30 mg IVP Q12 [facility] Last Admin: 10/16/17 09:43 Dose: 30 mg Mexiletine HCl (Mexiletine) 150 mg PO TID [facility] Last Admin: 10/16/17 09:41 Dose: 150 mg Montelukast Sodium (Singulair) 10 mg PO HS [facility] Last Admin: 10/15/17 21:18 Dose: 10 mg Sotalol HCl (Betapace) 160 mg PO BID [facility] Last Admin: 10/16/17 09:39 Dose: 160 mg Spironolactone (Aldactone) 50 mg PO DAILY [facility] Last Admin: 10/16/17 09:38 Dose: 50 mg Tiotropium [place] (Spiriva) 18 mcg INH DAILY [facility] Last Admin: 10/16/17 09:44 Dose: 18 mcg - Labs Labs: 10/14/17 04:45 10/16/17 04:52 PT 22.8 Seconds (9.8-13.1) H 10/13/17 06:20 INR 2.0 (0.9-1.2) H 10/13/17 06:20 APTT 31.2 Seconds (25.6-37.1) 10/13/17 06:20 Assessment and Plan (1) Dilated cardiomyopathy Status: Chronic (2) CHF (congestive heart failure) Status: Acute (3) Left leg DVT Status: Chronic (4) Pulmonary embolism Status: Resolved (5) Asthma Status: Chronic (6) Obstructive sleep apnea syndrome in adult Status: Chronic
[2017-10-16] MEDS ORDERED: Perflutren Lipid Microsphere 1.5 ML SUS IV ONE (10:55)
--- NOTE | 2017-10-16 13:05 | CARD ---
APPROVED REPORT EXAM: Two-dimensional and M-mode echocardiogram with Doppler, color Doppler with contrast. Other Information Quality : AverageRhythm : Pacemaker INDICATION Congestive Heart Failure Echo Enhancing Agent Indication: Endocardial border delineation Agent/Amount Used: Definity 2D DIMENSIONS IVSd1.09 (0.7-1.1cm)LVDd8.02 (3.9-5.9cm) LVOT Diameter2.43 (1.8-2.4cm)PWd0.84 (0.7-1.1cm) IVSs0.84 (0.8-1.2cm)LVDs8.02 (2.5-4.0cm) FS (%) 0.0 %PWs0.75 (0.8-1.2cm) M-Mode DIMENSIONS Left Atrium (MM)6.30 (2.5-4.0cm)IVSd0.93 (0.7-1.1cm) Aortic Root3.17 (2.2-3.7cm)LVDd9.47 (4.0-5.6cm) Aortic Cusp Exc.1.23 (1.5-2.0cm)PWd0.89 (0.7-1.1cm) IVSs1.10 cmFS (%) 11 % LVDs8.46 (2.0-3.8cm)PWs1.10 cm Aortic Valve AoV Peak Zhpgtblj642.0cm/sAoV VTI47.6cmAO Peak GR.23mmHg LVOT Peak Aomdkzkz17.1cm/sLVOT VTI12.52cmAO Mean GR.14mmHg SHERIDAN (VMAX)0.17kk2GGK (VTI)0.49cm2 Mitral Valve MV E Vphvzdvd91.0cm/sMV DECEL ZFHG537bqIM A Zqmbqzpm59.3cm/s MV KEJ34xsO/A ratio3.6MVA (PHT)3.49cm2 TDI E/Lateral E'0.0E/Medial E'0.0 Pulmonary Valve PV Peak Pohcfxds50.4cm/s LEFT VENTRICLE The Left Ventricle is severely dilated. There is normal left ventricular wall thickness. Left ventricle systolic function is severely impaired. The Ejection Fraction is <15%. There was profound generalised hypokinesia Pt in A Fib RIGHT VENTRICLE The right ventricle is normal size. The right ventricular systolic function is normal. ATRIA The left atrium is moderately dilated. The right atrium size is normal. AORTIC VALVE Poorly visualised. There is moderate aortic regurgitation. There is mild to moderate valvular aortic stenosis. Calculated aortic valve area is 1.5 cm2 with maximum pressure gradient of 27 mmHg and mean pressure gradient of 16 mmHg. MITRAL VALVE The mitral valve is normal in structure. There is no evidence of mitral valve prolapse. There is no mitral valve stenosis. Mitral regurgitation is mild to moderate. TRICUSPID VALVE The tricuspid valve is normal in structure. AICD lead was seen traversing the tricuspid valve. There is no tricuspid valve regurgitation noted. PULMONIC VALVE The pulmonary valve is normal in structure. There is mild pulmonic valvular regurgitation. GREAT VESSELS The aortic root is normal in size. The IVC was not visualized. PERICARDIAL EFFUSION The pericardium appears normal. <Conclusion> The Left Ventricle is severely dilated. There is normal left ventricular wall thickness. There was profound generalised hypokinesia Left ventricle systolic function is severely impaired. The Ejection Fraction is <15%. There is mild to moderate valvular aortic stenosis. Calculated aortic valve area is 1.5 cm2 with maximum pressure gradient of 27 mmHg and mean pressure gradient of 16 mmHg. Mitral regurgitation is mild to moderate.
--- NOTE | 2017-10-16 13:33 | CP.PCM.PN ---
Subjective - Date & Time of Evaluation Date of Evaluation: 10/16/17 Time of Evaluation: 11:00 - Subjective Subjective: Has lost an addl 3 lbs overnight Breathes a little better (walked around nurses stn yesterday) Telemetry shows A fib with VVI rhythm BP 100/74 mm Hg No rales, occ wheez + Labs: K+ normal BUN gradually rising with aggressive diuresis Echo shows profound LV dysfunction Mild gradient at AV Will investigate this further as out pt Objective - Vital Signs/Intake and Output Vital Signs (last 24 hours): Temp Pulse Resp BP Pulse Ox 97.5 F L 73 18 95/57 L 97 10/16/17 11:59 10/16/17 11:59 10/16/17 11:59 10/16/17 11:59 10/16/17 11:59 - Medications Medications: Current Medications Acetaminophen (Tylenol 325mg Tab) 650 mg PO Q6 PRN PRN Reason: Pain, Mild (1-3) Allopurinol (Zyloprim) 300 mg PO DAILY [facility] Last Admin: 10/16/17 09:44 Dose: 300 mg Apixaban (Eliquis) 5 mg PO Q12 [facility] PRN Reason: Protocol Last Admin: 10/16/17 09:40 Dose: 5 mg Carvedilol (Coreg) 12.5 mg PO BID [facility] Last Admin: 10/16/17 09:40 Dose: 12.5 mg Furosemide (Lasix) 40 mg IVP BID [facility] Last Admin: 10/16/17 09:40 Dose: 40 mg Guaifenesin/Dextromethorphan (Mucinex-Dm 600-30 Mg) 1 tab PO BID [facility] Last Admin: 10/16/17 09:42 Dose: 1 tab Levalbuterol HCl (Xopenex) 0.63 mg INH RQ8 [facility] Last Admin: 10/16/17 07:56 Dose: 0.63 mg Lisinopril (Zestril) 10 mg PO DAILY [facility] Last Admin: 10/16/17 09:44 Dose: 10 mg Loratadine (Claritin) 10 mg PO DAILY [facility] Last Admin: 10/16/17 09:39 Dose: 10 mg Methylprednisolone (Solu-Medrol) 30 mg IVP DAILY [facility] Mexiletine HCl (Mexiletine) 150 mg PO TID [facility] Last Admin: 10/16/17 09:41 Dose: 150 mg Montelukast Sodium (Singulair) 10 mg PO HS [facility] Last Admin: 10/15/17 21:18 Dose: 10 mg Sotalol HCl (Betapace) 160 mg PO BID [facility] Last Admin: 10/16/17 09:39 Dose: 160 mg Spironolactone (Aldactone) 50 mg PO DAILY [facility] Last Admin: 10/16/17 09:38 Dose: 50 mg Tiotropium [place] (Spiriva) 18 mcg INH DAILY [facility] Last Admin: 10/16/17 09:44 Dose: 18 mcg - Labs Labs: 10/14/17 04:45 10/16/17 04:52 PT 22.8 Seconds (9.8-13.1) H 10/13/17 06:20 INR 2.0 (0.9-1.2) H 10/13/17 06:20 APTT 31.2 Seconds (25.6-37.1) 10/13/17 06:20
--- NOTE | 2017-10-16 13:52 | CP.PCM.PN ---
Subjective - Date & Time of Evaluation Date of Evaluation: 10/16/17 Time of Evaluation: 10:45 - Subjective Subjective: Pt feels better cough better than yesterday still with pedal edema - better however by the end of the day edema gets worse denies CP no Palpitation no abd pain Objective - Vital Signs/Intake and Output Vital Signs (last 24 hours): Temp Pulse Resp BP Pulse Ox 97.5 F L 73 18 95/57 L 97 10/16/17 11:59 10/16/17 11:59 10/16/17 11:59 10/16/17 11:59 10/16/17 11:59 - Medications Medications: Current Medications Acetaminophen (Tylenol 325mg Tab) 650 mg PO Q6 PRN PRN Reason: Pain, Mild (1-3) Allopurinol (Zyloprim) 300 mg PO DAILY [facility] Last Admin: 10/16/17 09:44 Dose: 300 mg Apixaban (Eliquis) 5 mg PO Q12 [facility] PRN Reason: Protocol Last Admin: 10/16/17 09:40 Dose: 5 mg Carvedilol (Coreg) 12.5 mg PO BID [facility] Last Admin: 10/16/17 09:40 Dose: 12.5 mg Furosemide (Lasix) 40 mg IVP BID [facility] Last Admin: 10/16/17 09:40 Dose: 40 mg Guaifenesin/Dextromethorphan (Mucinex-Dm 600-30 Mg) 1 tab PO BID [facility] Last Admin: 10/16/17 09:42 Dose: 1 tab Levalbuterol HCl (Xopenex) 0.63 mg INH RQ8 [facility] Last Admin: 10/16/17 07:56 Dose: 0.63 mg Lisinopril (Zestril) 10 mg PO DAILY [facility] Last Admin: 10/16/17 09:44 Dose: 10 mg Loratadine (Claritin) 10 mg PO DAILY [facility] Last Admin: 10/16/17 09:39 Dose: 10 mg Methylprednisolone (Solu-Medrol) 30 mg IVP DAILY [facility] Mexiletine HCl (Mexiletine) 150 mg PO TID [facility] Last Admin: 10/16/17 09:41 Dose: 150 mg Montelukast Sodium (Singulair) 10 mg PO HS [facility] Last Admin: 10/15/17 21:18 Dose: 10 mg Sotalol HCl (Betapace) 160 mg PO BID [facility] Last Admin: 10/16/17 09:39 Dose: 160 mg Spironolactone (Aldactone) 50 mg PO DAILY [facility] Last Admin: 10/16/17 09:38 Dose: 50 mg Tiotropium [place] (Spiriva) 18 mcg INH DAILY [facility] Last Admin: 10/16/17 09:44 Dose: 18 mcg - Labs Labs: 10/14/17 04:45 10/16/17 04:52 PT 22.8 Seconds (9.8-13.1) H 10/13/17 06:20 INR 2.0 (0.9-1.2) H 10/13/17 06:20 APTT 31.2 Seconds (25.6-37.1) 10/13/17 06:20 - Constitutional Appears: No Acute Distress - Head Exam Head Exam: NORMAL INSPECTION, NORMOCEPHALIC - Eye Exam Eye Exam: EOMI, Normal appearance, PERRL Pupil Exam: NORMAL ACCOMODATION - ENT Exam ENT Exam: Mucous Membranes Moist, Normal External Ear Exam - Neck Exam Neck Exam: Full ROM. absent: Meningismus - Respiratory Exam Respiratory Exam: Decreased Breath Sounds, NORMAL BREATHING PATTERN. absent: Respiratory Distress - Cardiovascular Exam Cardiovascular Exam: REGULAR RHYTHM, +S1, +S2 Additional comments: Left AICD - GI/Abdominal Exam GI & Abdominal Exam: Soft, Normal Bowel Sounds. absent: Tenderness - Extremities Exam Extremities Exam: Normal Capillary Refill, Pedal Edema. absent: Calf Tenderness - Back Exam Back Exam: Full ROM. absent: CVA tenderness (L), CVA tenderness (R) - Neurological Exam Neurological Exam: Alert, Awake, CN II-XII Intact, Oriented x3 Neuro motor strength exam: Left Upper Extremity: 5, Right Upper Extremity: 5, Left Lower Extremity: 5, Right Lower Extremity: 5 - Psychiatric Exam Psychiatric exam: Normal Affect - Skin Skin Exam: Dry, Warm Assessment and Plan - Assessment and Plan (Free Text) Assessment: This is a 57 year old male with a past medical history of CHF, DVT/PE 3 years ago,on Eliquis , obesity, asthma, polycythemia, history of cardiac arrhythmia for which he has pacemaker/defibrillator, presented in the ED with worsening shortness of breath over the course of about a month. The patient states that he has been getting worsening orthopnea . He is unable to walk up stairs without stopping due to his dyspnea. 1) Acute on Chronic CHF exacerbation and fluid overload, systolic and diastolic dysfunction - rpt ECHO done today : EF 15% , generalized hypokinesia, mod - pt still with SOB, and cough , pedal edema better - Continue Lasix , Coreg , Lisinopril, Aldactone - discussed with Dr Saunders - decreased Coreg back to 12.5 mg bid due to worsening of cough after dose was increased, and increase Aldactone dose - I & O - Daily weights - Cardiology following pt - Dr David Saunders 2) Asthma exacerbation - Dr. Aguilera on consultation, case dicussed - Duoneb tx - IV Solumedrol decreased to 30 mg daily starting in am 2/3 - cont Spiriva 3) History of left leg DVT/PE on Eliquis - Continue Eliquis - Chronic - Doppler US : negative - CTA : no PE 4) History of RICARDO in adult - CPAP HS- pt uses his own 5) Obesity BMI 49 - Chronic 6) History of cardiac arrhythmia/ Paroxysmal Atrial Fibrillation s/p pacemaker /defibrillation placement Pt on Sotalol and Mexilitine Pt on Eliquis 7) DVT prophylaxis - Eliquis
[2017-10-17] MEDS: Levalbuterol 0.63 MG/3 ML Inhal Soln UD INH SCH ×2 (00:18→07:48)
[2017-10-17 08:21] LABS: ALB/GLOB RATIO 1.1 (1.0-2.1); ALBUMIN 4.1 g/dL (3.5-5.0); ALT/SGPT 60 U/L (21-72); AST/SGOT 34 U/L (17-59); BLOOD UREA NITROGEN 16 mg/dl (9-20); CALCIUM 9.3 mg/dL (8.4-10.2); GFR AFRICAN-AMERICAN > 60; GFR NON-AFRICAN AMERICAN > 60
[2017-10-17] MEDS ORDERED: MethylPREDNISolone 40 mg Vial IVP SCH (09:00)
[2017-10-17] MEDS: guaiFENesin-DM 600-30 mg ER Tab PO SCH (09:27)
[2017-10-17] MEDS: Tiotropium 18 mcg Cap For Inhalation INH SCH (09:27)
--- NOTE | 2017-10-17 10:16 | CP.PCM.PN ---
Subjective - Date & Time of Evaluation Date of Evaluation: 10/17/17 Time of Evaluation: 10:10 - Subjective Subjective: Case discussed this morning with cardiology. Has shown steady improvement on the current regimen. Results of the echocardiogram may be showing further declining LV function with additional valvular pathology. Further review of previous echos will be done. Clinically he appears more comfortable, cough has decreased. He was able to have a reasonably good night's sleep. His weight is decreasing with diuresis and the dependant edema is regressing. His AM chemistries have been questioned and will be repeated now. The breath sounds are well heard bilaterally without wheezes or bronchial breath sounds. There are only few medium rales heard in the lower lobes with rare sonorous rhonchi. Heart sounds are muffled, rhythm is regular. Abdomen is obese and non-tender with good bowel sounds. Likely okay for discharge to home today pending the repeat lab work. He will continue nitely use of his nCPAP as usual and will remain on Spiriva Respimat once daily. He will need to go on oral methylprednisolone 4MG tablets in a decreasing dose schedule starting at 16MG daily. The Medrol can probably be decreased by 4MG every 48 hours as long as he remains stable without increasing cough. I will send a prescription electronically to his pharmacy for 30 tablets of 4MG methylprednisolone. Further cardiac testing and potential treatments will be worked up as an outpatient. His maintenance medications, including apixaban, will remain the same. Objective - Vital Signs/Intake and Output Vital Signs (last 24 hours): Temp Pulse Resp BP Pulse Ox 97.4 F L 71 18 102/65 94 L 10/17/17 08:37 10/17/17 09:26 10/17/17 09:00 10/17/17 09:27 10/17/17 09:00 Intake and Output: 10/16/17 10/17/17 23:59 11:59 Intake Total 1200 Balance 1200 - Medications Medications: Current Medications Acetaminophen (Tylenol 325mg Tab) 650 mg PO Q6 PRN PRN Reason: Pain, Mild (1-3) Allopurinol (Zyloprim) 300 mg PO DAILY [facility] Last Admin: 10/17/17 09:26 Dose: 300 mg Apixaban (Eliquis) 5 mg PO Q12 [facility] PRN Reason: Protocol Last Admin: 10/17/17 09:25 Dose: 5 mg Carvedilol (Coreg) 12.5 mg PO BID [facility] Last Admin: 10/17/17 09:25 Dose: 12.5 mg Furosemide (Lasix) 40 mg IVP BID [facility] Last Admin: 10/17/17 09:27 Dose: 40 mg Guaifenesin/Dextromethorphan (Mucinex-Dm 600-30 Mg) 1 tab PO BID [facility] Last Admin: 10/17/17 09:27 Dose: 1 tab Levalbuterol HCl (Xopenex) 0.63 mg INH RQ8 [facility] Last Admin: 10/17/17 07:48 Dose: 0.63 mg Lisinopril (Zestril) 10 mg PO DAILY [facility] Last Admin: 10/17/17 09:25 Dose: 10 mg Loratadine (Claritin) 10 mg PO DAILY [facility] Last Admin: 10/17/17 09:27 Dose: 10 mg Methylprednisolone (Solu-Medrol) 30 mg IVP DAILY [facility] Last Admin: 10/17/17 09:27 Dose: 30 mg Mexiletine HCl (Mexiletine) 150 mg PO TID [facility] Last Admin: 10/17/17 09:26 Dose: 150 mg Montelukast Sodium (Singulair) 10 mg PO HS [facility] Last Admin: 10/16/17 21:19 Dose: 10 mg Sotalol HCl (Betapace) 160 mg PO BID [facility] Last Admin: 10/17/17 09:26 Dose: 160 mg Spironolactone (Aldactone) 50 mg PO DAILY [facility] Last Admin: 10/17/17 09:26 Dose: 50 mg Tiotropium [place] (Spiriva) 18 mcg INH DAILY [facility] Last Admin: 10/17/17 09:27 Dose: 18 mcg - Labs Labs: 10/14/17 04:45 10/17/17 06:35 PT 22.8 Seconds (9.8-13.1) H 10/13/17 06:20 INR 2.0 (0.9-1.2) H 10/13/17 06:20 APTT 31.2 Seconds (25.6-37.1) 10/13/17 06:20 Assessment and Plan (1) Dilated cardiomyopathy Status: Chronic (2) CHF (congestive heart failure) Status: Acute (3) Left leg DVT Status: Chronic (4) Pulmonary embolism Status: Resolved (5) Asthma Status: Chronic (6) Obstructive sleep apnea syndrome in adult Status: Chronic
--- NOTE | 2017-10-17 10:41 | CP.PCM.PN ---
Subjective - Date & Time of Evaluation Date of Evaluation: 10/17/17 Time of Evaluation: 09:40 - Subjective Subjective: Has been diuresing with 80 Mg of lasix+ 50 mg of Aldactone Weight continues to go down Pt able to ambulate around nurse's Stn with less dyspnoea/Coughing spells less pronounced BP stable at 100/70 mm Hg Due to obesity, breath sounds difficult to discern (but few rales) Oddly today's labs do not corrospond to the azotemic trend of last 4 day's (which was appropriat for aggressive diuresis) Will repeat them Echo findings discussed with Dr Aguilera LV syst function profoundly depressed with the added burden of Will review these findings against 18 month old study Will consult EP Pt stable at this point to go home after labs are drawn. Cardiac meds to be taken at home upon D/C explained to the pt in detail Objective - Vital Signs/Intake and Output Vital Signs (last 24 hours): Temp Pulse Resp BP Pulse Ox 97.4 F L 71 18 102/65 94 L 10/17/17 08:37 10/17/17 09:26 10/17/17 09:00 10/17/17 09:27 10/17/17 09:00 - Medications Medications: Current Medications Acetaminophen (Tylenol 325mg Tab) 650 mg PO Q6 PRN PRN Reason: Pain, Mild (1-3) Allopurinol (Zyloprim) 300 mg PO DAILY [facility] Last Admin: 10/17/17 09:26 Dose: 300 mg Apixaban (Eliquis) 5 mg PO Q12 [facility] PRN Reason: Protocol Last Admin: 10/17/17 09:25 Dose: 5 mg Carvedilol (Coreg) 12.5 mg PO BID [facility] Last Admin: 10/17/17 09:25 Dose: 12.5 mg Furosemide (Lasix) 40 mg IVP BID [facility] Last Admin: 10/17/17 09:27 Dose: 40 mg Guaifenesin/Dextromethorphan (Mucinex-Dm 600-30 Mg) 1 tab PO BID [facility] Last Admin: 10/17/17 09:27 Dose: 1 tab Levalbuterol HCl (Xopenex) 0.63 mg INH RQ8 [facility] Last Admin: 10/17/17 07:48 Dose: 0.63 mg Lisinopril (Zestril) 10 mg PO DAILY [facility] Last Admin: 10/17/17 09:25 Dose: 10 mg Loratadine (Claritin) 10 mg PO DAILY [facility] Last Admin: 10/17/17 09:27 Dose: 10 mg Methylprednisolone (Solu-Medrol) 30 mg IVP DAILY [facility] Last Admin: 10/17/17 09:27 Dose: 30 mg Mexiletine HCl (Mexiletine) 150 mg PO TID [facility] Last Admin: 10/17/17 09:26 Dose: 150 mg Montelukast Sodium (Singulair) 10 mg PO HS [facility] Last Admin: 10/16/17 21:19 Dose: 10 mg Sotalol HCl (Betapace) 160 mg PO BID [facility] Last Admin: 10/17/17 09:26 Dose: 160 mg Spironolactone (Aldactone) 50 mg PO DAILY [facility] Last Admin: 10/17/17 09:26 Dose: 50 mg Tiotropium [place] (Spiriva) 18 mcg INH DAILY [facility] Last Admin: 10/17/17 09:27 Dose: 18 mcg - Labs Labs: 10/14/17 04:45 10/17/17 06:35 PT 22.8 Seconds (9.8-13.1) H 10/13/17 06:20 INR 2.0 (0.9-1.2) H 10/13/17 06:20 APTT 31.2 Seconds (25.6-37.1) 10/13/17 06:20
--- NOTE | 2017-10-17 11:21 | CP.PCM.DIS ---
Provider - Provider Date of Admission: 10/13/17 18:43 Attending physician: King Paniagua DO Primary care physician: Dr. Aguilera Consults: pulmonary consult cardiology consult Time Spent in preparation of Discharge (in minutes): 20 Hospital Course - Lab Results Lab Results: Micro Results 10/13/17 06:20 Blood Blood Culture - Preliminary NO GROWTH AFTER 4 DAYS 10/13/17 12:20 Blood Blood Culture - Preliminary NO GROWTH AFTER 48 HOURS Most Recent Lab Values WBC 13.4 K/uL (4.8-10.8) H D 10/14/17 04:45 RBC 4.37 Mil/uL (4.40-5.90) L 10/14/17 04:45 Hgb 14.3 g/dL (12.0-18.0) 10/14/17 04:45 Hct 42.7 % (35.0-51.0) 10/14/17 04:45 MCV 97.6 fl (80.0-94.0) H 10/14/17 04:45 MCH 32.7 pg (27.0-31.0) H 10/14/17 04:45 MCHC 33.5 g/dL (33.0-37.0) 10/14/17 04:45 RDW 18.2 % (11.5-14.5) H 10/14/17 04:45 Plt Count 185 K/uL (130-400) 10/14/17 04:45 MPV 9.3 fl (7.2-11.7) 10/13/17 06:20 Neut % (Auto) 64.9 % (50.0-75.0) 10/13/17 06:20 Lymph % (Auto) 20.9 % (20.0-40.0) 10/13/17 06:20 Pratt % (Auto) 11.8 % (0.0-10.0) H 10/13/17 06:20 Eos % (Auto) 1.3 % (0.0-4.0) 10/13/17 06:20 Baso % (Auto) 1.1 % (0.0-2.0) 10/13/17 06:20 Neut # 5.7 K/uL (1.8-7.0) 10/13/17 06:20 Lymph # 1.8 K/uL (1.0-4.3) 10/13/17 06:20 Pratt # 1.0 K/uL (0.0-0.8) H 10/13/17 06:20 Eos # 0.1 K/uL (0.0-0.7) 10/13/17 06:20 Baso # 0.1 K/uL (0.0-0.2) 10/13/17 06:20 PT 22.8 Seconds (9.8-13.1) H 10/13/17 06:20 INR 2.0 (0.9-1.2) H 10/13/17 06:20 APTT 31.2 Seconds (25.6-37.1) 10/13/17 06:20 Sodium 139 mmol/l (132-148) 10/17/17 06:35 Potassium 3.5 MMOL/L (3.6-5.0) L 10/17/17 06:35 Chloride 101 mmol/L (98-107) 10/17/17 06:35 Carbon Dioxide 26 mmol/L (22-30) 10/17/17 06:35 Anion Gap 16 (10-20) 10/17/17 06:35 BUN 16 mg/dl (9-20) 10/17/17 06:35 Creatinine 0.8 mg/dl (0.8-1.5) 10/17/17 06:35 Est GFR ( Amer) > 60 10/17/17 06:35 Est GFR (Non-Af Amer) > 60 10/17/17 06:35 Random Glucose 115 mg/dL (75-110) H 10/17/17 06:35 Lactic Acid 1.7 MMOL/L (0.7-2.1) 10/13/17 06:20 Calcium 9.3 mg/dL (8.4-10.2) 10/17/17 06:35 Total Bilirubin 3.2 mg/dl (0.2-1.3) H 10/17/17 06:35 AST 34 U/L (17-59) 10/17/17 06:35 ALT 60 U/L (21-72) 10/17/17 06:35 Alkaline Phosphatase 97 U/L (38-126) 10/17/17 06:35 Troponin I 0.0690 ng/mL (0.00-0.120) 10/13/17 06:20 NT-Pro-B Natriuret Pep 5150 pg/ml (0-900) H 10/16/17 04:52 Total Protein 7.7 G/DL (6.3-8.2) 10/17/17 06:35 Albumin 4.1 g/dL (3.5-5.0) 10/17/17 06:35 Globulin 3.6 gm/dL (2.2-3.9) 10/17/17 06:35 Albumin/Globulin Ratio 1.1 (1.0-2.1) 10/17/17 06:35 Influenza Typ A,B (EIA) Negative for flu a/b (NEGATIVE) 10/13/17 06:40 - Hospital Course Hospital Course: 57 year old male with a past medical history of CHF, DVT/PE 3 years ago,on Eliquis , obesity, asthma, polycythemia, history of cardiac arrhythmia for which he has pacemaker/defibrillator, presented in the ED with worsening shortness of breath over the course of about a month. The patient states that he has been getting worsening orthopnea . He is unable to walk up stairs without stopping due to his dyspnea.patient found to be in acute on chronic CHF exacerbation and asthma exacerbation and was admitted in telemetry. Cardiology and pulmonary were consulted. He was started on Lasix 80 mg daily, spironolactone 50 mg Po daily for diuresis . during this hospitalization he diuresed well with improvement of his dyspnea. He also was started on Solumedrol Iv and Duonebs for his Asthma his Echo showed worsening EF 15 % , with dilated cardiomyopathy,generalized hypokinesia and Aortic stenosis with aortic valve area 1.5 cm2 . Clinically patient showed improvement, able to ambulate better with no dyspnea or CP. He is cleared by both chemical dependency nurse and pulmonary for discharge on current medications. He will be discharged home on tappering dose of Solumedrol starting from 16 mg , tappering by 4 mg every 48 hours as per pulmonary . He will be discharged on lasix 80 mg po Qd , spironolactone, coreg, lisinopril and eliquist patient will need to follow up with his cardiothoracic surgeon to be evaluated for possible TAVR 1 Acute on Chronic CHF exacerbation and fluid overload, systolic and diastolic dysfunction ECHO showed EF 15% , generalized hypokinesia, mod Clinically his SOB,cough and pedal edema improved Continue Lasix , Coreg , Lisinopril, Aldactone . Repeat BMP on Thursday and follow up with Dr. Saunders follow up with cardiothoracic surgeon for Continue emerald 2.Asthma exacerbation Pulmonary consulted ,Dr. Aguilera Treated with solumedrolL IV. will d/c on Prednisone PO , Spiriva 3. 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 History of RICARDO in adult CPAP HS- pt uses his own 5. Morbid Obesity BMI 49 Chronic 6. History of cardiac arrhythmia/ Paroxysmal Atrial Fibrillation s/p pacemaker /defibrillation placement Pt on Sotalol and Mexilitine Pt on Eliquis 7. DVT prophylaxis Eliquis Discharge Exam - Head Exam Head Exam: ATRAUMATIC, NORMAL INSPECTION, NORMOCEPHALIC - Eye Exam Eye Exam: EOMI, Normal appearance, PERRL Pupil Exam: NORMAL ACCOMODATION - ENT Exam ENT Exam: Mucous Membranes Moist, Normal Exam - Neck Exam Neck exam: Full Rom, Normal Inspection - Respiratory Exam Respiratory Exam: Rales (bibasilar ), NORMAL BREATHING PATTERN. absent: Rhonchi , Wheezes, Respiratory Distress - Cardiovascular Exam Cardiovascular Exam: REGULAR RHYTHM, +S1, +S2. absent: JVD - GI/Abdominal Exam GI & Abdominal Exam: Normal Bowel Sounds, Soft. absent: Distended, Guarding, Rebound, Tenderness Additional comments: obese - Rectal Exam Rectal Exam: Deferred - Extremities Exam Extremities exam: normal capillary refill, normal inspection, pedal edema (1 +) , pedal pulses present - Back Exam Back exam: NORMAL INSPECTION - Neurological Exam Neurological exam: Alert, CN II-XII Intact, Oriented x3, Reflexes Normal - Psychiatric Exam Psychiatric exam: Normal Affect, Normal Mood - Skin Skin Exam: Dry, Intact, Normal Color, Warm Discharge Plan - Discharge Medications Prescriptions: Carvedilol [Coreg] 12.5 mg PO BID #60 tab guaiFENesin/Dextromethorphan [Mucinex-DM 600-30 mg] 1 tab PO BID #20 tab Spironolactone [Aldactone] 50 mg PO DAILY #30 tab - Follow Up Plan Condition: IMPROVED Disposition: HOME/ ROUTINE Patient education suggested?: Yes Instructions: Heart Failure (DC), Heart Failure (GEN) Referrals: Mariano Aguilera MD [Staff Provider] - Cale Saunders MD [Staff Provider] - Clinical Quality Measures - CQM - Heart Failure Ejection Fraction: Less Than 40 % Left Ventricular Function to be assessed after discharge: Yes DOUG Inhibitor Prescribed: Yes Beta-Stefany Prescribed: Carvedilol AnticoagulationTherapy for Atrial Fibrillation/Atrialflutter: Yes Aldosterone Antagonist Prescribed: Yes Will be discharged to: Home Follow Up Date (must be within 7 days from discharge): 10/23/17 Follow Up Time: 09:00 - Date & Time of Discharge Summary Date of Discharge Summary: 10/17/17
[2017-10-17 12:07] LABS: ALB/GLOB RATIO 1.2 (1.0-2.1); ALBUMIN 3.8 g/dL (3.5-5.0); ALT/SGPT 33 U/L (21-72); AST/SGOT 17 U/L (17-59); BLOOD UREA NITROGEN 41 mg/dl (9-20); CALCIUM 9.9 mg/dL (8.4-10.2); GFR AFRICAN-AMERICAN > 60; GFR NON-AFRICAN AMERICAN > 60
[2017-10-17 12:16] VITALS: PULSE 68; RESP 16; TEMP 97.5; O2SAT 99
[2017-10-17 13:05] VITALS: BP 95/59
== END 2017-10-17 13:59 | disposition home or self-care (01) | DRG 292 ==
LOC: H.ER 05:54 → H.ERHOLD 09:58 → H.TEL 10:42 → OBSVTOIN 18:43 → H.TEL 19:45
PROVIDERS: ADMIT Internal Medicine; ATTEND Internal Medicine
DX: I11.0 Hypertensive heart disease with heart failure (principal); J45.901 Unspecified asthma with (acute) exacerbation; E66.01 Morbid (severe) obesity due to excess calories; D75.1 Secondary polycythemia; I42.0 Dilated cardiomyopathy; Z68.42 Body mass index [BMI] 45.0-49.9, adult; Z79.01 Long term (current) use of anticoagulants; I48.2 Chronic atrial fibrillation; I50.43 Acute on chronic combined systolic (congestive) and diastolic (congestive) heart failure; I35.0 Nonrheumatic aortic (valve) stenosis; I48.0 Paroxysmal atrial fibrillation; G47.33 Obstructive sleep apnea (adult) (pediatric); Z95.810 Presence of automatic (implantable) cardiac defibrillator; Z86.711 Personal history of pulmonary embolism; Z86.718 Personal history of other venous thrombosis and embolism

== ENCOUNTER 2017-12-01 09:32 | Inpatient (IN) | payer OTHER ==
[2017-12-01 09:32] VITALS: BMI 47.1
[2017-12-01] MEDS ORDERED: Albuterol-Ipratrop 3 mg / 0.5 (3 ml) UD INH STA (09:50)
[2017-12-01] MEDS ORDERED: Albuterol-Ipratrop 3 mg / 0.5 (3 ml) UD IH STA (09:50)
[2017-12-01] MEDS ORDERED: Sodium Chloride 0.9% 500 ML IV STA (09:50)
[2017-12-01] MEDS ORDERED: Albuterol-Ipratrop 3 mg / 0.5 (3 ml) UD ONE (10:05)
--- NOTE | 2017-12-01 10:17 | ED PDOC ---
HPI: SOB/CHF/COPD Time Seen by Provider: 12/01/17 09:35 Chief Complaint (Nursing): Shortness Of Breath Chief Complaint (Provider): Shortness Of Breath History Per: Patient History/Exam Limitations: no limitations Onset/Duration Of Symptoms: Days (x3 months) Current Symptoms Are (Timing): Still Present Additional Complaint(s): 57 y/o male with a past medical history of CHF, asthma, cardia arryhtmia, HTN, pneumonia, and pacemaker, who presents to the ED complaining of shortness of breath x3 months. Patient states shortness of breath began after visiting [facility] in August. States he has had an intermittent cough productive of green phlegm. Also reports intermittent wheezing chest tightness, and resolved left leg swelling. Denies nausea, vomiting, diarrhea, chest pain, abdominal pain, fever, chills, headache, and leg pain. Patient had a CTA 10/13/17 which showed no evidence of PE and an EF of 15%. PMD: Dr. Aguilera Secondary MD: Dr. Saunders Past Medical History Reviewed: Historical Data, Nursing Documentation, Vital Signs Vital Signs: Last Vital Signs Temp 97.3 F L 12/01/17 09:51 Pulse 70 12/01/17 09:51 Resp 22 12/01/17 09:51 BP 114/60 12/01/17 09:51 Pulse Ox 98 12/01/17 11:41 - Medical History PMH: Asthma, Cardia Arrhythmia, CHF, Deep Vein Thrombosis, Fractures (Knee Caps) , HTN, Kidney Stones, Peripheral Edema, Pneumonia, Sleep Apnea Denies: HIV, Chronic Kidney Disease - Surgical History Surgical History: Pacemaker - Family History Family History: States: Unknown Family Hx - Living Arrangements Living Arrangements: With Family - Social History Current smoker - smoking cessation education provided: No Alcohol: None Drugs: Denies - Home Medications Home Medications: Ambulatory Orders Medication Instructions Recorded Allopurinol [Zyloprim] 300 mg PO DAILY #0 tab 04/11/16 Cetirizine HCl [All Day Allergy 10 mg PO HS #0 tablet 04/11/16 Relief] Lisinopril [Zestril] 10 mg PO DAILY #0 tab 04/11/16 Mexiletine 150 mg PO TID #0 cap 04/11/16 Montelukast [Singulair] 10 mg PO HS #0 tab 04/11/16 Sotalol HCl [Sotalol] 160 mg PO BID #0 tablet 04/11/16 Apixaban [Eliquis] 5 mg PO Q12 10/13/17 Levalbuterol Tartrate 2 inh INH Q3 PRN 10/13/17 [Levalbuterol Tartrate Hfa] Mometasone Furoate [Asmanex Hfa] 2 inh INH BID 10/13/17 Tiotropium [Spiriva] 1 cap INH DAILY 10/13/17 Carvedilol [Coreg] 12.5 mg PO BID #60 tab 10/17/17 Furosemide [Lasix] 40 mg PO BID #0 tab 10/17/17 Loratadine [Claritin] 10 mg PO DAILY tab 10/17/17 Spironolactone [Aldactone] 50 mg PO DAILY #30 tab 10/17/17 guaiFENesin/Dextromethorphan 1 tab PO BID #20 tab 10/17/17 [Mucinex-DM 600-30 mg] - Allergies Allergies/Adverse Reactions: Allergies Allergy/AdvReac Type Severity Reaction Status Date / Time grass pollen Allergy CONGESTION Verified 12/01/17 09:41 Review of Systems ROS Statement: Except As Marked, All Systems Reviewed And Found Negative Constitutional: Negative for: Fever, Chills Cardiovascular: Positive for: Other (chest tightness). Negative for: Chest Pain Respiratory: Positive for: Cough, Shortness of Breath, Hemoptysis, Sputum, Wheezing Gastrointestinal: Negative for: Nausea, Vomiting, Abdominal Pain, Diarrhea Musculoskeletal: Positive for: Other (resolved left leg swelling). Negative for : Leg Pain Neurological: Negative for: Headache Physical Exam - Reviewed Nursing Documentation Reviewed: Yes Vital Signs Reviewed: Yes - Physical Exam Appears: Positive for: Non-toxic, No Acute Distress Head Exam: Positive for: ATRAUMATIC, NORMAL INSPECTION, NORMOCEPHALIC Skin: Positive for: Normal Color, Warm, Dry. Negative for: Rash Eye Exam: Positive for: EOMI, Normal appearance, PERRL ENT: Positive for: Normal ENT Inspection. Negative for: Nasal Congestion Neck: Positive for: Normal, Painless ROM, Supple Cardiovascular/Chest: Positive for: Regular Rate, Rhythm. Negative for: Murmur Respiratory: Positive for: Decreased Breath Sounds (bilaterally) Gastrointestinal/Abdominal: Positive for: Normal Exam, Bowel Sounds, Soft. Negative for: Tenderness Back: Positive for: Normal Inspection. Negative for: L CVA Tenderness, R CVA Tenderness, Vertebral Tenderness Extremity: Positive for: Normal ROM. Negative for: Pedal Edema, Deformity Neurologic/Psych: Positive for: Alert, Oriented (x3). Negative for: Motor/ Sensory Deficits - Laboratory Results Result Diagrams: 12/01/17 10:00 12/01/17 10:00 Interpretation Of Abn Labs: 11,600 probnp, bun 45 - ECG ECG: Positive for: Interpreted By Me, Viewed By Me Interpretation Of Abn EKG: paced O2 Sat by Pulse Oximetry: 98 (RA) Pulse Ox Interpretation: Normal - Radiology X-Ray: Interpreted by Me, Viewed By Me X-Ray Interpretation: No Acute Disease - Progress ED Course And Treament: 1143: Pt. on elaquis, will not give ASA. Will give lasix. 1149: Spoke with Dr. Aguilera. Wants pt. to be admitted. 1159: Spoke with Dr. Underwood. Will admit. Medical Decision Making Medical Decision Making: Time: 09:50 Impression: Shortness of breath Initial Plan: --ABG Shock Panel --EKG --BNP --CMP --Troponin I --CBC w/ differential --PTT/PT --CXR --Duoneb 3ml INH x2 --Fluid bolus --Solu-Medrol 125mg IVP --Blood culture --Reevaluation --Patient had CTA 10/13/17 which showed no evidence of PE and EF of 15%. Scribe Attestation: Documented by James Hutchison, acting as a scribe for Gabriel Vital MD. Provider Scribe Attestation: All medical record entries made by the Scribe were at my direction and personally dictated by me. I have reviewed the chart and agree that the record accurately reflects my personal performance of the history, physical exam, medical decision making, and the department course for this patient. I have also personally directed, reviewed, and agree with the discharge instructions and disposition. Disposition - Clinical Impression Clinical Impression: CHF exacerbation, Asthma - Patient ED Disposition Is Patient to be Admitted: Yes Counseled Patient/Family Regarding: Studies Performed, Diagnosis - Disposition Disposition Time: 12:00 Condition: FAIR - Pt Status Changed To: Hospital Disposition Of: Inpatient - Admit Certification Admit to Inpatient:: After my assessment, the patient will require hospitalization for at least two midnights. This is because of the severity of symptoms shown, intensity of services needed, and/or the medical risk in this patient being treated as an outpatient. - POA Present On Arrival: None
[2017-12-01 10:35] LABS: BASO # 0.1 K/uL (0.0-0.2); BASO % 0.9 % (0.0-2.0); EOS % 0.1 % (0.0-4.0); HEMOGLOBIN 16.4 g/dL (12.0-18.0); LYMPH # 1.6 K/uL (1.0-4.3); LYMPH % 11.8 % (20.0-40.0); MEAN CORPUSCULAR HEMOGLOBIN 32.4 pg (27.0-31.0); MEAN CORPUSCULAR HGB CONC 32.1 g/dL (33.0-37.0); MEAN PLATELET VOLUME 11.1 fl (7.2-11.7); MONO % 7.4 % (0.0-10.0); NEUT # 10.9 K/uL (1.8-7.0); NEUT % 79.8 % (50.0-75.0); NRBC % 1.1 % (0.0-0.0); RBC 5.06 Mil/uL (4.40-5.90); RED CELL DISTRIBUTION WIDTH 19.3 % (11.5-14.5); WHITE BLOOD COUNT 13.6 K/uL (4.8-10.8)
[2017-12-01 10:41] LABS: ABG ALLEN TEST YES; ARTERIAL BLOOD GAS HCO3 24.7 mmol/L (21-28); ARTERIAL BLOOD GAS PCO2 21 mm/Hg (35-45); ARTERIAL BLOOD GAS PH 7.57 (7.35-7.45); ARTERIAL BLOOD GAS PO2 105 mm/Hg (80-100); ARTERIAL BLOOD GAS TCO2 19.8 mmol/L (22-28)
[2017-12-01 10:50] LABS: INR 2.4 (0.9-1.2); PARTIAL THROMBOPLASTIN TIME 38.8 Seconds (25.6-37.1); PROTHROMBIN TIME 27.4 Seconds (9.8-13.1)
[2017-12-01 11:02] LABS: B-TYPE NATRIURETIC PEPTIDE 11600 pg/ml (0-900)
[2017-12-01 11:05] LABS: ALB/GLOB RATIO 1.3 (1.0-2.1); ALBUMIN 3.9 g/dL (3.5-5.0); ALT/SGPT 54 U/L (21-72); AST/SGOT 81 U/L (17-59); BLOOD UREA NITROGEN 45 mg/dl (9-20); CALCIUM 9.5 mg/dL (8.4-10.2); GFR AFRICAN-AMERICAN > 60; GFR NON-AFRICAN AMERICAN 52
--- NOTE | 2017-12-01 12:35 | RAD ---
HISTORY: dyspnea COMPARISON: 10/13/2017 FINDINGS: LUNGS: No active pulmonary disease. PLEURA: No significant pleural effusion identified, no pneumothorax apparent. CARDIOVASCULAR: Cardiomegaly. No evidence of acute, significant cardiovascular disease. Position/ configuration of pacemaker Satisfactory. OSSEOUS STRUCTURES: No significant abnormalities. VISUALIZED UPPER ABDOMEN: Normal. OTHER FINDINGS: None. IMPRESSION: No active disease. No significant interval change compared to the prior examination(s). Concordant results with the preliminary interpretation rendered by the emergency department physician procedure.
--- NOTE | 2017-12-01 13:13 | CP.PCM.HP ---
History of Present Illness - History of Present Illness History of Present Illness: 57 yo morbidly obese male with history of Asthma, CHF with internal defibrillator, HTN and previous DVT/PE came in because of progressively worsening SOB since 3 weeks ago. Claimed that condition started after coming back from [facility] about 3 months ago. Admitted mild chest discomfort on slight exertion. Denied fever, chills, nausea, vomiting or abdominal pain. Patient was admitted about 2 months ago because of CHF exacerbation. CT angiogram of the chest was negative for PE and ECHO showed less than 15% EF. He was managed with diuretics and went home in stable and improved condition. Present on Admission - Present on Admission Any Indicators Present on Admission: Yes History of DVT/PE: Yes History of Uncontrolled Diabetes: No Urinary Catheter: No Decubitus Ulcer Present: No Review of Systems - Review of Systems All systems: reviewed and no additional remarkable complaints except (aside from those mentioned above, 12 point system review were negative by me) Past Patient History - Infectious Disease Hx of Infectious Diseases: None - Tetanus Immunizations Tetanus Immunization: Unknown - Past Medical History & Family History Past Medical History?: Yes - Past Social History Smoking Status: Never Smoked Alcohol: None Drugs: Denies - CARDIAC Hx Cardia Arrhythmia: Yes Hx Congestive Heart Failure: Yes Hx Hypertension: Yes Hx Pacemaker: Yes Hx Peripheral Edema: Yes - PULMONARY Hx Asthma: Yes Hx Pneumonia: Yes Hx Sleep Apnea: Yes - NEUROLOGICAL Hx Neurological Disorder: No - HEENT Other/Comment: glasses - RENAL Hx Chronic Kidney Disease: No Hx Kidney Stones: Yes - ENDOCRINE/METABOLIC Other/Comment: Exogenous obesity - HEMATOLOGICAL/ONCOLOGICAL Hx Human Immunodeficiency Virus (HIV): No - INTEGUMENTARY Hx Dermatological Problems: No - MUSCULOSKELETAL/RHEUMATOLOGICAL Hx Fractures: Yes (Knee Caps) - GASTROINTESTINAL Hx Gastrointestinal Disorders: No - GENITOURINARY/GYNECOLOGICAL Hx Genitourinary Disorders: No - PSYCHIATRIC Hx Psychophysiologic Disorder: No Hx Substance Use: No - SURGICAL HISTORY Other/Comment: defibrillator/pacemaker insertion - ANESTHESIA Hx Anesthesia: Yes Hx Anesthesia Reactions: No Hx Malignant Hyperthermia: No Meds Allergies/Adverse Reactions: Allergies Allergy/AdvReac Type Severity Reaction Status Date / Time grass pollen Allergy CONGESTION Verified 12/01/17 09:41 Physical Exam - Constitutional Appears: No Acute Distress, Other (morbidly obese) - Head Exam Head Exam: ATRAUMATIC - Eye Exam Eye Exam: absent: Scleral icterus - ENT Exam ENT Exam: Mucous Membranes Moist - Neck Exam Neck exam: Negative for: Meningismus - Respiratory Exam Respiratory Exam: absent: Rales, Rhonchi, Wheezes - Cardiovascular Exam Cardiovascular Exam: REGULAR RHYTHM, +S1, +S2 - GI/Abdominal Exam GI & Abdominal Exam: Soft. absent: Tenderness - Rectal Exam Rectal Exam: Deferred - Extremities Exam Extremities exam: Negative for: calf tenderness, pedal edema - Back Exam Back exam: absent: tenderness - Neurological Exam Neurological exam: Alert, Oriented x3 - Psychiatric Exam Psychiatric exam: Normal Affect - Skin Skin Exam: Dry, Intact Results - Vital Signs Recent Vital Signs: Last Vital Signs Temp 97.5 F L 12/01/17 13:02 Pulse 68 12/01/17 12:48 Resp 97 H 12/01/17 13:02 BP 98/52 L 12/01/17 12:48 Pulse Ox 93 L 12/01/17 12:48 - Labs Result Diagrams: 12/01/17 10:00 12/01/17 12:48 Labs: Laboratory Results - last 24 hr 12/01/17 12/01/17 12/01/17 09:51 10:00 10:00 WBC 13.6 H RBC 5.06 Hgb 16.4 D Hct 51.1 H MCV 101.0 H D MCH 32.4 H MCHC 32.1 L RDW 19.3 H Plt Count 166 MPV 11.1 Neut % (Auto) 79.8 H Lymph % (Auto) 11.8 L Pender % (Auto) 7.4 Eos % (Auto) 0.1 Baso % (Auto) 0.9 Neut # (Auto) 10.9 H Lymph # (Auto) 1.6 Pender # (Auto) 1.0 H Eos # (Auto) 0.0 Baso # (Auto) 0.1 PT INR APTT pCO2 21 L pO2 105 H HCO3 24.7 ABG pH 7.57 H ABG Total CO2 19.8 L ABG O2 Saturation 100.0 H ABG Base Excess -0.2 Tj Test Yes ABG Potassium 4.2 A-a O2 Difference 68.0 Sodium 134.0 139 Chloride 105.0 104 Glucose 134 H Lactate 1.9 Vent Mode Nc FiO2 28.0 Potassium 5.8 H Carbon Dioxide 20 L Anion Gap 21 H BUN 45 H Creatinine 1.4 Est GFR ( Amer) > 60 Est GFR (Non-Af Amer) 52 Random Glucose 133 H Calcium 9.5 Total Bilirubin 2.3 H AST 81 H D ALT 54 Alkaline Phosphatase 44 Troponin I 0.0360 NT-Pro-B Natriuret Pep 86305 H Total Protein 6.9 Albumin 3.9 Globulin 3.0 Albumin/Globulin Ratio 1.3 Arterial Blood Potassium 4.2 12/01/17 12/01/17 10:00 12:48 WBC RBC Hgb Hct MCV MCH MCHC RDW Plt Count MPV Neut % (Auto) Lymph % (Auto) Pender % (Auto) Eos % (Auto) Baso % (Auto) Neut # (Auto) Lymph # (Auto) Pender # (Auto) Eos # (Auto) Baso # (Auto) PT 27.4 H INR 2.4 H APTT 38.8 H pCO2 pO2 HCO3 ABG pH ABG Total CO2 ABG O2 Saturation ABG Base Excess Tj Test ABG Potassium A-a O2 Difference Sodium Chloride Glucose Lactate Vent Mode FiO2 Potassium 4.5 Carbon Dioxide Anion Gap BUN Creatinine Est GFR ( Amer) Est GFR (Non-Af Amer) Random Glucose Calcium Total Bilirubin AST ALT Alkaline Phosphatase Troponin I NT-Pro-B Natriuret Pep Total Protein Albumin Globulin Albumin/Globulin Ratio Arterial Blood Potassium Assessment & Plan - Assessment and Plan (Free Text) Assessment: 57 yo morbidly obese male with history of Asthma, CHF with internal defibrillator, HTN and previous DVT/PE came in because of progressively worsening SOB since 3 weeks ago. Claimed that condition started after coming back from [facility] about 3 months ago. 1. CHF ECHO done last month showed dilated cardiomyopathy with EF <15% cardiology consult with Dr Lopez continue Lasix, Aldactone and Lisinopril 2. Bronchial Asthma Asmanex 2 puff q 12hrs Duoneb via nebulizer q 4hrs prn Montelukast 10mg PO HS 3. History of Thromboembolism on Eliquis 4. History of Sleep Apnea on CPAP at bedtime
[2017-12-01] MEDS ORDERED: Albuterol-Ipratrop 3 mg / 0.5 (3 ml) UD INH PRN (14:07)
--- NOTE | 2017-12-01 18:26 | CP.PCM.PN ---
Subjective - Date & Time of Evaluation Date of Evaluation: 12/01/17 Time of Evaluation: 18:24 - Subjective Subjective: i d note patient examined ,chart reviewed orders given will review again Objective - Vital Signs/Intake and Output Vital Signs (last 24 hours): Temp Pulse Resp BP Pulse Ox 97.3 F L 66 18 106/69 95 12/01/17 15:48 12/01/17 15:48 12/01/17 15:48 12/01/17 15:48 12/01/17 15:48 Intake and Output: 12/01/17 12/01/17 06:59 18:59 Intake Total 500 Balance 500 - Medications Medications: Current Medications Allopurinol (Zyloprim) 300 mg PO DAILY MICKI Apixaban (Eliquis) 5 mg PO Q12 MICKI PRN Reason: Protocol Carvedilol (Coreg) 6.25 mg PO Q12 MICKI Docusate Sodium (Colace) 100 mg PO BID PRN PRN Reason: Constipation Furosemide (Lasix) 40 mg PO DAILY MICKI Home Med (Mometasone Furoate [Asmanex Hfa]) 2 puff INH Q12 MICKI Home Med (Tiotropium Mondamin [Spiriva Respimat]) 2 puff IH DAILY MICKI Levalbuterol HCl (Xopenex) 0.63 mg INH Q4H PRN PRN Reason: Shortness of Breath Loratadine (Claritin) 10 mg PO HS MICKI Mexiletine HCl (Mexiletine) 150 mg PO Q8 MCIKI Montelukast Sodium (Singulair) 10 mg PO HS MICKI Pantoprazole Sodium (Protonix Ec Tab) 40 mg PO DAILY MICKI Sotalol HCl (Betapace) 160 mg PO BID MICKI Spironolactone (Aldactone) 50 mg PO DAILY MICKI - Labs Labs: 12/01/17 10:00 12/01/17 12:48 PT 27.4 Seconds (9.8-13.1) H 12/01/17 10:00 INR 2.4 (0.9-1.2) H 12/01/17 10:00 APTT 38.8 Seconds (25.6-37.1) H 12/01/17 10:00
[2017-12-01] MEDS ORDERED: MOMETASONE FUROATE INH SCH (21:00)
[2017-12-02] MEDS: Levalbuterol 0.63 MG/3 ML Inhal Soln UD INH PRN ×2 (05:03→14:00)
[2017-12-02 05:51] LABS: BASO % 0.3 % (0.0-2.0); HEMOGLOBIN 15.8 g/dL (12.0-18.0); LYMPH # 1.1 K/uL (1.0-4.3); LYMPH % 8.8 % (20.0-40.0); MEAN CELL VOLUME 99.8 fl (80.0-94.0); MEAN CORPUSCULAR HEMOGLOBIN 32.8 pg (27.0-31.0); MEAN CORPUSCULAR HGB CONC 32.9 g/dL (33.0-37.0); MEAN PLATELET VOLUME 11.1 fl (7.2-11.7); MONO # 0.4 K/uL (0.0-0.8); MONO % 3.2 % (0.0-10.0); NEUT % 87.7 % (50.0-75.0); NRBC % 0.5 % (0.0-0.0); PLATELET COUNT 152 K/uL (130-400); RBC 4.81 Mil/uL (4.40-5.90); RED CELL DISTRIBUTION WIDTH 19.1 % (11.5-14.5); WHITE BLOOD COUNT 12.5 K/uL (4.8-10.8)
[2017-12-02 06:00] LABS: BLOOD UREA NITROGEN 47 mg/dl (9-20); CALCIUM 9.8 mg/dL (8.4-10.2); GFR AFRICAN-AMERICAN > 60; GFR NON-AFRICAN AMERICAN 52
--- NOTE | 2017-12-02 06:36 | CP.PCM.CON ---
History of Present Illness - History of Present Illness History of Present Illness: This 57-year-old chronically overweight man with nonischemic congestive cardiomyopathy who has required an AICD implanted more than 12 years back was hospitalized with severe shortness of breath. The patient also has bronchial asthma and has been hospitalized in the past with acute exacerbations. He has obstructive sleep apnea and has been using a CPAP machine faithfully for more than 7-8 years. The patient was hospitalized recently and was found to have significant aortic valve gradient and underwent a IV dobutamine echocardiogram to evaluate his aortic valve. It was felt that there was no significant aortic valve obstruction. The patient has had his systolic blood pressure in the range of 9200 mmHg for number of years and giving him diuretics and beta blockers has been an issue. The patient was recently taken off of carvedilol because of his systolic blood pressure in the range of 90 mm. The patient received intravenous Lasix yesterday and reports a significant improvement in his dyspnea. Physical examination shows a young man markedly overweight propped up in a recliner and using a oxygen supplement with nasal cannula. He reports moderate degree of dyspnea even at rest. His respiratory rate was 18-20 breaths per minute. His blood pressure was 104/70 mmHg. There was mild pitting edema. His jugular venous pressure could not be assessed because of a short thick neck. His extremities were warm and his nailbeds were pink. There was no central or peripheral cyanosis. Serena was not palpable. A brief ejection systolic murmur is audible in the aortic area. The second heart sound was still preserved. Inspiratory effort was poor. Few rales are audible at both bases. Abdomen was protuberant and organomegaly could not be assessed. His electro-cardiogram shows a VVI paced rhythm. The patient has been on oral anticoagulation because of atrial fibrillation and a history of pulmonary embolism approximately 3 years back. His lab data shows that his P O2 was normal his pH was mildly alkalotic. His hemoglobin and hematocrit were normal. He had a mildly elevated BUNs as well as creatinine with a GFR of 52 mL per minute. His electrolytes were normal. His chest x-ray showed evidence of mild pulmonary congestion at admission. Impression: Congestive cardiac failure which is left ventricular and acute on chronic. Nonischemic congestive cardiomyopathy with status post AICD implant. Chronic bronchial asthma. Obstructive sleep apnea. Pathological obesity. History of pulmonary embolism. Stage III chronic kidney disease. The patient is being treated with intravenous diuretics given that his systolic blood pressure has remained about 100 mmHg and he demonstrated adequate peripheral tissue perfusion. His electrolytes and BUN/creatinine will be followed to ensure adequate tissue perfusion is maintained. His AICD was recently checked and has been functioning well. Past Patient History - Infectious Disease Hx of Infectious Diseases: None - Tetanus Immunizations Tetanus Immunization: Unknown - Past Medical History & Family History Past Medical History?: Yes - Past Social History Smoking Status: Never Smoked - CARDIAC Hx Cardiac Disorders: Yes - PULMONARY Hx Respiratory Disorders: Yes - NEUROLOGICAL Hx Neurological Disorder: No - HEENT Other/Comment: glasses - RENAL Hx Chronic Kidney Disease: Yes - ENDOCRINE/METABOLIC Other/Comment: Exogenous obesity - HEMATOLOGICAL/ONCOLOGICAL Hx Blood Disorders: Yes - INTEGUMENTARY Hx Dermatological Problems: No - MUSCULOSKELETAL/RHEUMATOLOGICAL Hx Falls: No Hx Fractures: Yes (Knee Caps) - GASTROINTESTINAL Hx Gastrointestinal Disorders: No - GENITOURINARY/GYNECOLOGICAL Hx Genitourinary Disorders: No - PSYCHIATRIC Hx Psychophysiologic Disorder: No - SURGICAL HISTORY Other/Comment: defibrillator/pacemaker insertion - ANESTHESIA Hx Anesthesia: Yes Hx Anesthesia Reactions: No Hx Malignant Hyperthermia: No Meds Allergies/Adverse Reactions: Allergies Allergy/AdvReac Type Severity Reaction Status Date / Time grass pollen Allergy CONGESTION Verified 12/01/17 09:41 - Medications Medications: Current Medications Allopurinol (Zyloprim) 300 mg PO DAILY [facility] Apixaban (Eliquis) 5 mg PO Q12 [facility] PRN Reason: Protocol Last Admin: 12/01/17 21:04 Dose: 5 mg Carvedilol (Coreg) 6.25 mg PO Q12 [facility] Last Admin: 12/01/17 21:04 Dose: 6.25 mg Docusate Sodium (Colace) 100 mg PO BID PRN PRN Reason: Constipation Furosemide (Lasix) 40 mg IVP ONCE ONE Stop: 12/02/17 06:29 Home Med (Mometasone Furoate [Asmanex Hfa]) 2 puff INH Q12 [facility] Home Med (Tiotropium [place] [Spiriva Respimat]) 2 puff IH DAILY [facility] Levalbuterol HCl (Xopenex) 0.63 mg INH Q4H PRN PRN Reason: Shortness of Breath Last Admin: 12/02/17 05:03 Dose: 0.63 mg Loratadine (Claritin) 10 mg PO HS [facility] Last Admin: 12/01/17 21:04 Dose: 10 mg Mexiletine HCl (Mexiletine) 150 mg PO Q8 [facility] Last Admin: 12/02/17 01:27 Dose: 150 mg Montelukast Sodium (Singulair) 10 mg PO HS [facility] Last Admin: 12/01/17 21:04 Dose: 10 mg Pantoprazole Sodium (Protonix Ec Tab) 40 mg PO DAILY [facility] Sotalol HCl (Betapace) 160 mg PO BID [facility] Last Admin: 12/01/17 18:48 Dose: 160 mg Spironolactone (Aldactone) 50 mg PO DAILY [facility] Results - Vital Signs Recent Vital Signs: Last Vital Signs Temp 97.1 F L 12/02/17 04:59 Pulse 66 12/02/17 05:05 Resp 20 12/02/17 04:59 BP 108/69 12/02/17 04:59 Pulse Ox 94 L 12/02/17 04:59 - Labs Result Diagrams: 12/02/17 04:25 12/02/17 04:25 Labs: Laboratory Results - last 24 hr 12/01/17 12/01/17 12/01/17 09:51 10:00 10:00 WBC 13.6 H RBC 5.06 Hgb 16.4 D Hct 51.1 H MCV 101.0 H D MCH 32.4 H MCHC 32.1 L RDW 19.3 H Plt Count 166 MPV 11.1 Neut % (Auto) 79.8 H Lymph % (Auto) 11.8 L [place] % (Auto) 7.4 Eos % (Auto) 0.1 Baso % (Auto) 0.9 Neut # (Auto) 10.9 H Lymph # (Auto) 1.6 [place] # (Auto) 1.0 H Eos # (Auto) 0.0 Baso # (Auto) 0.1 PT INR APTT pCO2 21 L pO2 105 H HCO3 24.7 ABG pH 7.57 H ABG Total CO2 19.8 L ABG O2 Saturation 100.0 H ABG Base Excess -0.2 Tj Test Yes ABG Potassium 4.2 A-a O2 Difference 68.0 Sodium 134.0 139 Chloride 105.0 104 Glucose 134 H Lactate 1.9 Vent Mode Nc FiO2 28.0 Potassium 5.8 H Carbon Dioxide 20 L Anion Gap 21 H BUN 45 H Creatinine 1.4 Est GFR ( Amer) > 60 Est GFR (Non-Af Amer) 52 Random Glucose 133 H Calcium 9.5 Total Bilirubin 2.3 H AST 81 H D ALT 54 Alkaline Phosphatase 44 Troponin I 0.0360 NT-Pro-B Natriuret Pep 72580 H Total Protein 6.9 Albumin 3.9 Globulin 3.0 Albumin/Globulin Ratio 1.3 Arterial Blood Potassium 4.2 12/01/17 12/01/17 12/01/17 10:00 12:48 18:01 WBC RBC Hgb Hct MCV MCH MCHC RDW Plt Count MPV Neut % (Auto) Lymph % (Auto) [place] % (Auto) Eos % (Auto) Baso % (Auto) Neut # (Auto) Lymph # (Auto) [place] # (Auto) Eos # (Auto) Baso # (Auto) PT 27.4 H INR 2.4 H APTT 38.8 H pCO2 pO2 HCO3 ABG pH ABG Total CO2 ABG O2 Saturation ABG Base Excess Tj Test ABG Potassium A-a O2 Difference Sodium Chloride Glucose Lactate Vent Mode FiO2 Potassium 4.5 Carbon Dioxide Anion Gap BUN Creatinine Est GFR ( Amer) Est GFR (Non-Af Amer) Random Glucose Calcium Total Bilirubin AST ALT Alkaline Phosphatase Troponin I 0.0180 NT-Pro-B Natriuret Pep Total Protein Albumin Globulin Albumin/Globulin Ratio Arterial Blood Potassium 12/02/17 12/02/17 04:25 04:25 WBC 12.5 H RBC 4.81 Hgb 15.8 Hct 48.0 MCV 99.8 H MCH 32.8 H MCHC 32.9 L RDW 19.1 H Plt Count 152 MPV 11.1 Neut % (Auto) 87.7 H Lymph % (Auto) 8.8 L [place] % (Auto) 3.2 Eos % (Auto) 0.0 Baso % (Auto) 0.3 Neut # (Auto) 11.0 H Lymph # (Auto) 1.1 [place] # (Auto) 0.4 Eos # (Auto) 0.0 Baso # (Auto) 0.0 PT INR APTT pCO2 pO2 HCO3 ABG pH ABG Total CO2 ABG O2 Saturation ABG Base Excess Tj Test ABG Potassium A-a O2 Difference Sodium 139 Chloride 102 Glucose Lactate Vent Mode FiO2 Potassium Carbon Dioxide 24 Anion Gap BUN 47 H Creatinine 1.4 Est GFR ( Amer) > 60 Est GFR (Non-Af Amer) 52 Random Glucose 161 H Calcium 9.8 Total Bilirubin AST ALT Alkaline Phosphatase Troponin I 0.0210 NT-Pro-B Natriuret Pep Total Protein Albumin Globulin Albumin/Globulin Ratio Arterial Blood Potassium
[2017-12-02] MEDS ORDERED: TIOTROPIUM BROMIDE IH SCH (09:00)
[2017-12-02] MEDS ORDERED: Enoxaparin 40 mg Syringe SC SCH (09:00)
[2017-12-02] MEDS: Pantoprazole 40 mg EC Tab PO SCH (09:36)
[2017-12-02 09:51] LABS: BANDS 1 % (0-2); LYMPHOCYTE 9 % (20-50); MONOCYTE 3 % (0-10); NEUTROPHIL 87 % (42-75); PLATELET ESTIMATE NORMAL (NORMAL); TOTAL CELLS COUNTED 100
[2017-12-02 09:54] LABS: ANISOCYTOSIS SLIGHT; LARGE PLATELETS PRESENT
--- NOTE | 2017-12-02 11:34 | CARD ---
APPROVED REPORT EKG Measurement Heart [id number] [id number] <Conclusion> Atrial sensed, ventricular-paced rhythm Abnormal ECG
[2017-12-02] MEDS ORDERED: methylPREDNISolone 40 MG in Sodium Chloride 0.9% 50 ML IVPB SCH (12:15)
--- NOTE | 2017-12-02 15:20 | CP.PCM.PN ---
Subjective - Date & Time of Evaluation Date of Evaluation: 12/02/17 Time of Evaluation: 09:40 - Subjective Subjective: Patient seen and examined. Claimed feeling better although still having mild SOB. Objective - Vital Signs/Intake and Output Vital Signs (last 24 hours): Temp Pulse Resp BP Pulse Ox 97.5 F L 63 18 104/66 97 12/02/17 12:00 12/02/17 12:00 12/02/17 12:00 12/02/17 12:00 12/02/17 12:00 Intake and Output: 12/02/17 12/02/17 06:59 18:59 Intake Total 500 Balance 500 - Medications Medications: Current Medications Allopurinol (Zyloprim) 300 mg PO DAILY [facility] Last Admin: 12/02/17 09:34 Dose: 300 mg Apixaban (Eliquis) 5 mg PO Q12 [facility] PRN Reason: Protocol Last Admin: 12/02/17 09:34 Dose: 5 mg Carvedilol (Coreg) 6.25 mg PO Q12 [facility] Last Admin: 12/02/17 09:35 Dose: 6.25 mg Docusate Sodium (Colace) 100 mg PO BID PRN PRN Reason: Constipation Furosemide (Lasix) 40 mg IV DAILY [facility] Home Med (Mometasone Furoate [Asmanex Hfa]) 2 puff INH Q12 [facility] Home Med (Tiotropium [place] [Spiriva Respimat]) 2 puff IH DAILY [facility] Levalbuterol HCl (Xopenex) 0.63 mg INH Q4H PRN PRN Reason: Shortness of Breath Last Admin: 12/02/17 14:00 Dose: 0.63 mg Loratadine (Claritin) 10 mg PO HS [facility] Last Admin: 12/01/17 21:04 Dose: 10 mg Methylprednisolone (Solu-Medrol) 40 mg IVP DAILY [facility] Mexiletine HCl (Mexiletine) 150 mg PO Q8 [facility] Last Admin: 12/02/17 09:32 Dose: 150 mg Montelukast Sodium (Singulair) 10 mg PO HS [facility] Last Admin: 12/01/17 21:04 Dose: 10 mg Pantoprazole Sodium (Protonix Ec Tab) 40 mg PO DAILY [facility] Last Admin: 12/02/17 09:36 Dose: 40 mg Sotalol HCl (Betapace) 160 mg PO BID [facility] Last Admin: 12/02/17 09:33 Dose: 160 mg Spironolactone (Aldactone) 50 mg PO DAILY [facility] Last Admin: 12/02/17 09:34 Dose: 50 mg - Labs Labs: 12/02/17 04:25 12/02/17 04:25 PT 27.4 Seconds (9.8-13.1) H 12/01/17 10:00 INR 2.4 (0.9-1.2) H 12/01/17 10:00 APTT 38.8 Seconds (25.6-37.1) H 12/01/17 10:00 - Constitutional Appears: No Acute Distress - Head Exam Head Exam: ATRAUMATIC - Eye Exam Eye Exam: absent: Scleral icterus - ENT Exam ENT Exam: Mucous Membranes Moist - Neck Exam Neck Exam: absent: Meningismus - Respiratory Exam Respiratory Exam: Decreased Breath Sounds, Rales (on both bases). absent: Wheezes, Respiratory Distress - Cardiovascular Exam Cardiovascular Exam: REGULAR RHYTHM, +S1, +S2 - GI/Abdominal Exam GI & Abdominal Exam: Soft. absent: Tenderness - Rectal Exam Rectal Exam: Deferred - Extremities Exam Extremities Exam: Pedal Edema (1+ bilateral pedal edema) - Neurological Exam Neurological Exam: Alert, Oriented x3 - Psychiatric Exam Psychiatric exam: Normal Affect - Skin Skin Exam: Dry, Intact Assessment and Plan - Assessment and Plan (Free Text) Assessment: 57 yo male with history of Morbid Obesity, Asthma, CHF with AICD, HTN and previous DVT/PE came in because of progressively worsening SOB since 3 weeks ago. Claimed that condition started after coming back from [facility] about 3 months ago. 1. CHF heart failure secondary to left ventricular dysfunction ECHO done last month showed dilated cardiomyopathy with EF <15% cardiology consult with Dr Lopez appreciated continue IV Lasix, Aldactone and Lisinopril 2. Bronchial Asthma Asmanex 2 puff q 12hrs Duoneb via nebulizer q 4hrs prn Montelukast 10mg PO HS SoluMedrol 40mg IV daily 3. History of Thromboembolism continue Eliquis 5mg PO q 12hrs 4. History of Sleep Apnea on CPAP at bedtime
[2017-12-02] MEDS: MethylPREDNISolone 40 mg Vial IVP SCH (15:28)
[2017-12-02 16:34] LABS: INTRACELLULAR PARASITE NEGATIVE (NEGATIVE)
[2017-12-03] MEDS: Levalbuterol 0.63 MG/3 ML Inhal Soln UD INH PRN ×2 (00:29→04:40)
[2017-12-03 06:25] LABS: ALB/GLOB RATIO 1.2 (1.0-2.1); ALBUMIN 3.7 g/dL (3.5-5.0); ALT/SGPT 83 U/L (21-72); AST/SGOT 46 U/L (17-59); BLOOD UREA NITROGEN 57 mg/dl (9-20); CALCIUM 9.7 mg/dL (8.4-10.2); GFR AFRICAN-AMERICAN > 60; GFR NON-AFRICAN AMERICAN 57
[2017-12-03] MEDS ORDERED: Sod Polystyrene Sulf 15 gm/60 ml Susp PO ONE (08:35)
[2017-12-03] MEDS: Pantoprazole 40 mg EC Tab PO SCH (08:50)
[2017-12-03] MEDS: MethylPREDNISolone 40 mg Vial IVP SCH (08:51)
--- NOTE | 2017-12-03 09:55 | CP.PCM.PN ---
Subjective - Date & Time of Evaluation Date of Evaluation: 12/03/17 Time of Evaluation: 09:10 - Subjective Subjective: In spite of IV Lasix 40 mg, pt continues to be orthopnoic V paced rhythm at 70 BPM BP 102/ 72 mm Hg Pedal oedema and few basal rales persist BUN/ Creatinin have remained stable K+ was 5.5 mEq/L (after Aldactone was added) Pt has received Kayexalate (Aldactone was D/Tyler) Will give lasix BID Objective - Vital Signs/Intake and Output Vital Signs (last 24 hours): Temp Pulse Resp BP Pulse Ox 97.2 F L 67 18 103/69 99 12/03/17 08:27 12/03/17 08:50 12/03/17 08:27 12/03/17 08:50 12/03/17 08:27 - Medications Medications: Current Medications Allopurinol (Zyloprim) 300 mg PO DAILY [facility] Last Admin: 12/03/17 08:51 Dose: 300 mg Apixaban (Eliquis) 5 mg PO Q12 [facility] PRN Reason: Protocol Last Admin: 12/03/17 08:48 Dose: 5 mg Carvedilol (Coreg) 6.25 mg PO Q12 [facility] Last Admin: 12/03/17 08:47 Dose: 6.25 mg Docusate Sodium (Colace) 100 mg PO BID PRN PRN Reason: Constipation Last Admin: 12/02/17 17:58 Dose: 100 mg Furosemide (Lasix) 40 mg IV BID [facility] Home Med (Mometasone Furoate [Asmanex Hfa]) 2 puff INH Q12 [facility] Home Med (Tiotropium [place] [Spiriva Respimat]) 2 puff IH DAILY [facility] Levalbuterol HCl (Xopenex) 0.63 mg INH Q4H PRN PRN Reason: Shortness of Breath Last Admin: 12/03/17 04:40 Dose: 0.63 mg Loratadine (Claritin) 10 mg PO HS [facility] Last Admin: 12/02/17 21:57 Dose: 10 mg Methylprednisolone (Solu-Medrol) 40 mg IVP DAILY [facility] Last Admin: 12/03/17 08:51 Dose: 40 mg Mexiletine HCl (Mexiletine) 150 mg PO Q8 [facility] Last Admin: 12/03/17 08:50 Dose: 150 mg Montelukast Sodium (Singulair) 10 mg PO HS [facility] Last Admin: 12/02/17 21:57 Dose: 10 mg Pantoprazole Sodium (Protonix Ec Tab) 40 mg PO DAILY [facility] Last Admin: 12/03/17 08:50 Dose: 40 mg Sotalol HCl (Betapace) 160 mg PO BID [facility] Last Admin: 12/03/17 08:46 Dose: 160 mg - Labs Labs: 12/02/17 04:25 12/03/17 05:20 PT 27.4 Seconds (9.8-13.1) H 12/01/17 10:00 INR 2.4 (0.9-1.2) H 12/01/17 10:00 APTT 38.8 Seconds (25.6-37.1) H 12/01/17 10:00
--- NOTE | 2017-12-03 12:33 | CP.PCM.CON ---
History of Present Illness - History of Present Illness History of Present Illness: This 57-year-old male who is known to suffer from dilated cardiomyopathy and chronic congestive cardiac failure as well as bronchial asthma has been complaining of shortness of breath which has not improved on outpatient management. He has noted more difficulty breathing since returning from a vacation in [facility] in August 2017. He is to use all medications as prescribed and has had increasing doses of inhaled corticosteroid as well as use of Spiriva and Xopenex HFA. He was advised to go to the emergency department after failure to improve even with the addition of by mouth steroids. He suffers from obstructive sleep apnea and uses his nasal CPAP at home as directed. He also uses supplemental oxygen at home as well. There has been no chest pain. There has been no discharge of his AICD. He has been on weight loss program and has been gradually losing weight and his dependent edema of the lower extremities has been improved over what it had been in the past. Past Patient History - Infectious Disease Hx of Infectious Diseases: None - Tetanus Immunizations Tetanus Immunization: Unknown - Past Medical History & Family History Past Medical History?: Yes Pertinent Family History: CAD/cardiomegaly - Past Social History Smoking Status: Never Smoked Chewing Tobacco Use: No Cigar Use: No Alcohol: Social Drugs: Denies Home Situation {Lives}: With Family - CARDIAC Hx Cardia Arrhythmia: Yes Hx Congestive Heart Failure: Yes Hx Internal Defibrillator: Yes Hx Peripheral Edema: Yes Other/Comment: Dilated cardiomyopathy. - PULMONARY Hx Asthma: Yes Hx Bronchitis: Yes Hx Pulmonary Embolism: Yes Hx Sleep Apnea: Yes - NEUROLOGICAL Hx Neurological Disorder: No - HEENT Hx Sinusitis: Yes Other/Comment: glasses - RENAL Hx Chronic Kidney Disease: Yes - ENDOCRINE/METABOLIC Other/Comment: Exogenous obesity - HEMATOLOGICAL/ONCOLOGICAL Hx Blood Disorders: No - INTEGUMENTARY Hx Dermatological Problems: No - MUSCULOSKELETAL/RHEUMATOLOGICAL Hx Arthritis: Yes Hx Falls: No - GASTROINTESTINAL Hx Gastrointestinal Disorders: No - GENITOURINARY/GYNECOLOGICAL Hx Genitourinary Disorders: No - PSYCHIATRIC Hx Psychophysiologic Disorder: No - SURGICAL HISTORY Other/Comment: defibrillator/pacemaker insertion - ANESTHESIA Hx Anesthesia: Yes Hx Anesthesia Reactions: No Hx Malignant Hyperthermia: No Meds Allergies/Adverse Reactions: Allergies Allergy/AdvReac Type Severity Reaction Status Date / Time grass pollen Allergy CONGESTION Verified 12/01/17 09:41 - Medications Medications: Current Medications Allopurinol (Zyloprim) 300 mg PO DAILY [facility] Last Admin: 12/03/17 08:51 Dose: 300 mg Apixaban (Eliquis) 5 mg PO Q12 [facility] PRN Reason: Protocol Last Admin: 12/03/17 08:48 Dose: 5 mg Carvedilol (Coreg) 6.25 mg PO Q12 [facility] Last Admin: 12/03/17 08:47 Dose: 6.25 mg Docusate Sodium (Colace) 100 mg PO BID PRN PRN Reason: Constipation Last Admin: 12/02/17 17:58 Dose: 100 mg Furosemide (Lasix) 40 mg IV BID [facility] Methylprednisolone 30 mg/ (Sodium Chloride) 50 mls @ 100 mls/hr IV DAILY [facility] Ipratropium [place] (Atrovent) 0.5 mg IH RQ6 [facility] Levalbuterol HCl (Xopenex) 0.63 mg INH Q4H PRN PRN Reason: Shortness of Breath Last Admin: 12/03/17 04:40 Dose: 0.63 mg Mexiletine HCl (Mexiletine) 150 mg PO Q8 [facility] Last Admin: 12/03/17 08:50 Dose: 150 mg Montelukast Sodium (Singulair) 10 mg PO HS [facility] Last Admin: 12/02/17 21:57 Dose: 10 mg Pantoprazole Sodium (Protonix Ec Tab) 40 mg PO DAILY [facility] Last Admin: 12/03/17 08:50 Dose: 40 mg Sotalol HCl (Betapace) 160 mg PO BID [facility] Last Admin: 12/03/17 08:46 Dose: 160 mg Physical Exam - Additional Findings Additional findings: Obese white male who is dyspneic with simple conversation. Mentally awake and alert and well-oriented. Memory is intact. Speech is fluent. Cranial nerves appear intact. Strength is normal. No palpable lymphadenopathy. No rash or ecchymosis. Pharynx is pink and mucous membranes are moist. No exudate. Conjunctivae are pink and there is no scleral icterus. Pupils are equal and reactive. Nares are patent bilaterally. No bleeding or exudate. Neck supple and trachea is midline. No visible neck vein distention. No carotid bruit. No dullness on chest percussion. Equal expansion. Breath sounds are slightly diminished bilaterally but otherwise unremarkable. No rales or wheezes are appreciated. No bronchial breathing or egophony. No rhonchi or rub. Heart sounds are somewhat distant. Rhythm is regular. The abdomen is obese, nontender with normal bowel sounds. No palpable HSM. No CVA tenderness. 1+ dependent edema is noted in both lower extremities. No cyanosis. No calf tenderness or palpable venous cords. Results - Vital Signs Recent Vital Signs: Last Vital Signs Temp 97.3 F L 12/03/17 11:40 Pulse 69 12/03/17 11:40 Resp 18 12/03/17 11:40 BP 110/74 12/03/17 11:40 Pulse Ox 98 12/03/17 11:40 - Labs Result Diagrams: 12/05/17 05:30 12/05/17 05:30 Labs: Laboratory Results - last 24 hr 12/02/17 12/03/17 09:09 05:20 Sodium 139 Potassium 5.5 H Chloride 103 Carbon Dioxide 20 L Anion Gap 22 H BUN 57 H Creatinine 1.3 Est GFR ( Amer) > 60 Est GFR (Non-Af Amer) 57 Random Glucose 141 H Calcium 9.7 Total Bilirubin 1.7 H AST 46 ALT 83 H D Alkaline Phosphatase 40 Total Protein 6.7 Albumin 3.7 Globulin 3.1 Albumin/Globulin Ratio 1.2 Blood Parasites Smear Negative Assessment & Plan (1) CHF exacerbation Status: Acute Priority: High (2) Asthma Status: Chronic Priority: High (3) Dilated cardiomyopathy Status: Chronic Priority: High (4) Hypoxemia Status: Chronic Priority: High (5) Obstructive sleep apnea syndrome in adult Status: Chronic Priority: High - Assessment and Plan (Free Text) Plan: Continue maintenance medications. Diuresis as tolerated. Supplemental oxygen using nasal cannula. Continue nasal CPAP overnight. Continual monitoring for cardiac arrhythmia. Judicious use of parenteral corticosteroids. Continue oral anticoagulation. Aerosolized ipratropium bromide on a scheduled regimen with low dose level albuterol on an as-needed basis only. - Date & Time Date: 12/03/17 Time: 12:33
--- NOTE | 2017-12-03 12:41 | CP.PCM.PN ---
Subjective - Date & Time of Evaluation Date of Evaluation: 12/03/17 Time of Evaluation: 11:00 - Subjective Subjective: Patient was seen and examined. Sitting in chair , in mild respiratory distress , while at rest with 2 L O2 via NC. No acute issues overnight BP 110/74 HR 69 Sat 98 % on 2 l O2 via NC T 97.5 LE with pedal edema K 5.5 ( mildly hemolyzed ) Objective - Vital Signs/Intake and Output Vital Signs (last 24 hours): Temp Pulse Resp BP Pulse Ox 97.3 F L 69 18 110/74 98 12/03/17 11:40 12/03/17 11:40 12/03/17 11:40 12/03/17 11:40 12/03/17 11:40 - Medications Medications: Current Medications Allopurinol (Zyloprim) 300 mg PO DAILY [facility] Last Admin: 12/03/17 08:51 Dose: 300 mg Apixaban (Eliquis) 5 mg PO Q12 [facility] PRN Reason: Protocol Last Admin: 12/03/17 08:48 Dose: 5 mg Carvedilol (Coreg) 6.25 mg PO Q12 [facility] Last Admin: 12/03/17 08:47 Dose: 6.25 mg Docusate Sodium (Colace) 100 mg PO BID PRN PRN Reason: Constipation Last Admin: 12/02/17 17:58 Dose: 100 mg Furosemide (Lasix) 40 mg IV BID [facility] Methylprednisolone 30 mg/ (Sodium Chloride) 50 mls @ 100 mls/hr IV DAILY [facility] Ipratropium [place] (Atrovent) 0.5 mg IH RQ6 [facility] Levalbuterol HCl (Xopenex) 0.63 mg INH Q4H PRN PRN Reason: Shortness of Breath Last Admin: 12/03/17 04:40 Dose: 0.63 mg Mexiletine HCl (Mexiletine) 150 mg PO Q8 [facility] Last Admin: 12/03/17 08:50 Dose: 150 mg Montelukast Sodium (Singulair) 10 mg PO HS [facility] Last Admin: 12/02/17 21:57 Dose: 10 mg Pantoprazole Sodium (Protonix Ec Tab) 40 mg PO DAILY [facility] Last Admin: 12/03/17 08:50 Dose: 40 mg Sotalol HCl (Betapace) 160 mg PO BID [facility] Last Admin: 12/03/17 08:46 Dose: 160 mg - Labs Labs: 12/02/17 04:25 12/03/17 05:20 PT 27.4 Seconds (9.8-13.1) H 12/01/17 10:00 INR 2.4 (0.9-1.2) H 12/01/17 10:00 APTT 38.8 Seconds (25.6-37.1) H 12/01/17 10:00 - Constitutional Appears: Other (obese , mild respiratory distress ) - Head Exam Head Exam: ATRAUMATIC, NORMAL INSPECTION, NORMOCEPHALIC - Eye Exam Eye Exam: EOMI, Normal appearance, PERRL Pupil Exam: NORMAL ACCOMODATION - ENT Exam ENT Exam: Mucous Membranes Moist, Normal Exam - Neck Exam Additional comments: short , thick neck - Respiratory Exam Respiratory Exam: Prolonged Expiratory Phase, Rales (bibasilar ). absent: Rhonchi, Wheezes - Cardiovascular Exam Cardiovascular Exam: REGULAR RHYTHM, RRR, +S1, +S2. absent: JVD - GI/Abdominal Exam GI & Abdominal Exam: Soft. absent: Distended, Guarding, Tenderness, Rebound - Rectal Exam Rectal Exam: Deferred - Extremities Exam Extremities Exam: Normal Inspection, Pedal Edema (2 +). absent: Calf Tenderness - Back Exam Back Exam: NORMAL INSPECTION - Neurological Exam Neurological Exam: Alert, Awake, CN II-XII Intact, Oriented x3 - Psychiatric Exam Psychiatric exam: Normal Affect, Normal Mood - Skin Skin Exam: Dry, Intact, Normal Color, Warm Assessment and Plan - Assessment and Plan (Free Text) Assessment: 57 yo male with history of Morbid Obesity, Asthma, severely dilated cardiomyopathy with EF 15 % , s/p AICD, HTN and previous DVT/PE came in because of progressively worsening SOB since 3 weeks ago. Claimed that condition started after coming back from [facility] about 3 months ago. Patient admitted with CHF exacerbation , cardiology consulted . 12/03 -At present still with SOB at rest while on o2 via NC, Le edema 1.Acute on chronic CHF exacerbation Severe dilated cardiomyopathy with EF 15 % heart failure secondary to left ventricular dysfunction ECHO done last month showed dilated cardiomyopathy with EF <15% cardiology consult with Dr Lopez appreciated incresae Lasix to 40 mg IV BID today and D/c aldactone due to hyperkalemia Continue Na and fluid restriction continue lisinopril , coreg and Sotalol 2. Bronchial Asthma stable pulmonary consulted Asmanex 2 puff q 12hrs Duoneb via nebulizer q 4hrs prn Montelukast 10mg PO HS decreased SoluMedrol to 30 mg IV daily 3. History of Thromboembolism continue Eliquis 5mg PO q 12hrs 4. Sleep Apnea on CPAP at bedtime 5. Morbid Obesity BMI 46 6. DVt prophylaxis on eliquist
--- NOTE | 2017-12-03 17:02 | CP.PCM.PN ---
Subjective - Date & Time of Evaluation Date of Evaluation: 12/03/17 Time of Evaluation: 16:55 - Subjective Subjective: I D NOTE HAVE ORDERED REPEAT URINE CULTURE . PSA (SERUM) LFTs are elevated (failure?),but have ordered abdominal and pelvic US. Objective - Vital Signs/Intake and Output Vital Signs (last 24 hours): Temp Pulse Resp BP Pulse Ox 97.2 F L 65 20 108/70 99 12/03/17 16:30 12/03/17 16:30 12/03/17 16:30 12/03/17 16:30 12/03/17 16:30 - Medications Medications: Current Medications Allopurinol (Zyloprim) 300 mg PO DAILY [facility] Last Admin: 12/03/17 08:51 Dose: 300 mg Apixaban (Eliquis) 5 mg PO Q12 [facility] PRN Reason: Protocol Last Admin: 12/03/17 08:48 Dose: 5 mg Carvedilol (Coreg) 6.25 mg PO Q12 [facility] Last Admin: 12/03/17 08:47 Dose: 6.25 mg Docusate Sodium (Colace) 100 mg PO BID PRN PRN Reason: Constipation Last Admin: 12/02/17 17:58 Dose: 100 mg Furosemide (Lasix) 40 mg IV BID [facility] Ipratropium [place] (Atrovent) 0.5 mg IH RQ6 [facility] Levalbuterol HCl (Xopenex) 0.63 mg INH Q4H PRN PRN Reason: Shortness of Breath Last Admin: 12/03/17 04:40 Dose: 0.63 mg Methylprednisolone (Solu-Medrol) 30 mg IVP DAILY [facility] Mexiletine HCl (Mexiletine) 150 mg PO Q8 [facility] Last Admin: 12/03/17 08:50 Dose: 150 mg Montelukast Sodium (Singulair) 10 mg PO HS [facility] Last Admin: 12/02/17 21:57 Dose: 10 mg Pantoprazole Sodium (Protonix Ec Tab) 40 mg PO DAILY [facility] Last Admin: 12/03/17 08:50 Dose: 40 mg Sotalol HCl (Betapace) 160 mg PO BID [facility] Last Admin: 12/03/17 08:46 Dose: 160 mg - Labs Labs: 12/02/17 04:25 12/03/17 05:20 PT 27.4 Seconds (9.8-13.1) H 12/01/17 10:00 INR 2.4 (0.9-1.2) H 12/01/17 10:00 APTT 38.8 Seconds (25.6-37.1) H 12/01/17 10:00
[2017-12-03] MEDS: Ipratropium 0.02% Inhal Soln (0.5 mg/2.5 ml) UD IH SCH (19:03)
[2017-12-04] MEDS: Levalbuterol 0.63 MG/3 ML Inhal Soln UD INH PRN ×2 (04:45→19:39)
[2017-12-04] MEDS: Ipratropium 0.02% Inhal Soln (0.5 mg/2.5 ml) UD IH SCH ×4 (04:45→19:40)
[2017-12-04 06:20] LABS: ALB/GLOB RATIO 1.3 (1.0-2.1); ALBUMIN 3.6 g/dL (3.5-5.0); ALT/SGPT 98 U/L (21-72); AST/SGOT 39 U/L (17-59); BLOOD UREA NITROGEN 56 mg/dl (9-20); CALCIUM 9.5 mg/dL (8.4-10.2); GFR AFRICAN-AMERICAN > 60; GFR NON-AFRICAN AMERICAN 52
--- NOTE | 2017-12-04 08:31 | CP.PCM.PN ---
Subjective - Date & Time of Evaluation Date of Evaluation: 12/04/17 Time of Evaluation: 08:29 - Subjective Subjective: Seated in a bedside chair. Appears fatigued and still has some degree of dyspnea with conversation. Has been using nCPAP at night, but without oxygen adapter. Question the O2 saturation overnight. Awakens fatigued in the AM. Sleeps poorly, restless and short duration. Not at all restorative. Has had a three pound decrease in his weight from the day prior. Was able to have IV furosemide twice yesterday w/o hypotensive complications. Planned abdominal ultrasound today because of elevated LFT's. No complaints of abdominal discomfort. No dysuria. Dependant edema still about the same as the day before.. No cyanosis or calf pain. No Ronak's sign. Peripheral pulses are equal,with diminished intensity. Breath sounds are equal, but diminshed bilaterally. No audible wheezing or rales. Heart sounds are distant, regular rhythm with occasional PHB. Abdomen is obese and non-tender. Will use HFNC at 28% and 30LPM during the daytime. nCPAP for overnight (added an adapter to bleed in supplemental oxygen). Will discuss further with cardiology regarding plans going forward. May need referral ultimately to a chronic CHF center. For the present time we will continue the present plan with BID parenteral furosemide.. Objective - Vital Signs/Intake and Output Vital Signs (last 24 hours): Temp Pulse Resp BP Pulse Ox 97.3 F L 77 18 116/76 96 12/04/17 08:01 12/04/17 08:01 12/04/17 08:01 12/04/17 08:01 12/04/17 08:01 Intake and Output: 12/03/17 12/04/17 23:59 11:59 Intake Total 1000 Balance 1000 - Medications Medications: Current Medications Allopurinol (Zyloprim) 300 mg PO DAILY [facility] Last Admin: 12/03/17 08:51 Dose: 300 mg Apixaban (Eliquis) 5 mg PO Q12 [facility] PRN Reason: Protocol Last Admin: 12/03/17 21:19 Dose: 5 mg Carvedilol (Coreg) 6.25 mg PO Q12 [facility] Last Admin: 12/03/17 21:20 Dose: 6.25 mg Docusate Sodium (Colace) 100 mg PO BID PRN PRN Reason: Constipation Last Admin: 12/02/17 17:58 Dose: 100 mg Furosemide (Lasix) 40 mg IV BID [facility] Last Admin: 12/03/17 17:04 Dose: 40 mg Ipratropium [place] (Atrovent) 0.5 mg IH RQ6 [facility] Last Admin: 12/04/17 04:45 Dose: 0.5 mg Levalbuterol HCl (Xopenex) 0.63 mg INH Q4H PRN PRN Reason: Shortness of Breath Last Admin: 12/04/17 04:45 Dose: 0.63 mg Methylprednisolone (Solu-Medrol) 30 mg IVP DAILY [facility] Mexiletine HCl (Mexiletine) 150 mg PO Q8 [facility] Last Admin: 12/04/17 00:39 Dose: 150 mg Montelukast Sodium (Singulair) 10 mg PO HS [facility] Last Admin: 12/03/17 21:20 Dose: 10 mg Pantoprazole Sodium (Protonix Ec Tab) 40 mg PO DAILY [facility] Last Admin: 12/03/17 08:50 Dose: 40 mg Sotalol HCl (Betapace) 160 mg PO BID [facility] Last Admin: 12/03/17 16:58 Dose: 160 mg - Labs Labs: 12/02/17 04:25 12/04/17 04:50 PT 27.4 Seconds (9.8-13.1) H 12/01/17 10:00 INR 2.4 (0.9-1.2) H 12/01/17 10:00 APTT 38.8 Seconds (25.6-37.1) H 12/01/17 10:00 Assessment and Plan (1) CHF exacerbation Status: Acute (2) Asthma Status: Chronic (3) Dilated cardiomyopathy Status: Chronic (4) Hypoxemia Status: Chronic (5) Obstructive sleep apnea syndrome in adult Status: Chronic
--- NOTE | 2017-12-04 08:39 | CP.PCM.PN ---
Subjective - Date & Time of Evaluation Date of Evaluation: 12/04/17 Time of Evaluation: 08:39 Objective - Vital Signs/Intake and Output Vital Signs (last 24 hours): Temp Pulse Resp BP Pulse Ox 97.3 F L 77 18 116/76 96 12/04/17 08:01 12/04/17 08:01 12/04/17 08:01 12/04/17 08:01 12/04/17 08:01 - Medications Medications: Current Medications Allopurinol (Zyloprim) 300 mg PO DAILY [facility] Last Admin: 12/03/17 08:51 Dose: 300 mg Apixaban (Eliquis) 5 mg PO Q12 [facility] PRN Reason: Protocol Last Admin: 12/03/17 21:19 Dose: 5 mg Carvedilol (Coreg) 6.25 mg PO Q12 [facility] Last Admin: 12/03/17 21:20 Dose: 6.25 mg Docusate Sodium (Colace) 100 mg PO BID PRN PRN Reason: Constipation Last Admin: 12/02/17 17:58 Dose: 100 mg Furosemide (Lasix) 40 mg IV BID [facility] Last Admin: 12/03/17 17:04 Dose: 40 mg Ipratropium [place] (Atrovent) 0.5 mg IH RQ6 [facility] Last Admin: 12/04/17 04:45 Dose: 0.5 mg Levalbuterol HCl (Xopenex) 0.63 mg INH Q4H PRN PRN Reason: Shortness of Breath Last Admin: 12/04/17 04:45 Dose: 0.63 mg Methylprednisolone (Solu-Medrol) 30 mg IVP DAILY [facility] Mexiletine HCl (Mexiletine) 150 mg PO Q8 [facility] Last Admin: 12/04/17 00:39 Dose: 150 mg Montelukast Sodium (Singulair) 10 mg PO HS [facility] Last Admin: 12/03/17 21:20 Dose: 10 mg Pantoprazole Sodium (Protonix Ec Tab) 40 mg PO DAILY [facility] Last Admin: 12/03/17 08:50 Dose: 40 mg Sotalol HCl (Betapace) 160 mg PO BID [facility] Last Admin: 12/03/17 16:58 Dose: 160 mg - Labs Labs: 12/02/17 04:25 12/04/17 04:50 PT 27.4 Seconds (9.8-13.1) H 12/01/17 10:00 INR 2.4 (0.9-1.2) H 12/01/17 10:00 APTT 38.8 Seconds (25.6-37.1) H 12/01/17 10:00 Assessment and Plan - Assessment and Plan (Free Text) Plan: 57 yo male with history of Morbid Obesity, Asthma, severely dilated cardiomyopathy with EF 15 % , s/p AICD, HTN and previous DVT/PE came in because of progressively worsening SOB since 3 weeks ago. Claimed that condition started after coming back from [facility] about 3 months ago. Patient admitted with CHF exacerbation , cardiology consulted . 12/03 -At present still with SOB at rest while on o2 via NC, Le edema 1.Acute on chronic CHF exacerbation Severe dilated cardiomyopathy with EF 15 % heart failure secondary to left ventricular dysfunction ECHO done last month showed dilated cardiomyopathy with EF <15% cardiology consult with Dr Lopez appreciated incresae Lasix to 40 mg IV BID today and D/c aldactone due to hyperkalemia Continue Na and fluid restriction continue lisinopril , coreg and Sotalol 2. Bronchial Asthma stable pulmonary consulted Asmanex 2 puff q 12hrs Duoneb via nebulizer q 4hrs prn Montelukast 10mg PO HS decreased SoluMedrol to 30 mg IV daily 3. History of Thromboembolism continue Eliquis 5mg PO q 12hrs 4. Sleep Apnea on CPAP at bedtime 5. Morbid Obesity BMI 46 6. DVt prophylaxis on eliquist
[2017-12-04] MEDS ORDERED: methylPREDNISolone 30 MG in Sodium Chloride 0.9% 50 ML IV SCH (09:00)
[2017-12-04] MEDS: MethylPREDNISolone 40 mg Vial IVP SCH (09:13)
--- NOTE | 2017-12-04 09:31 | CP.PCM.PN ---
Subjective - Date & Time of Evaluation Date of Evaluation: 12/04/17 Time of Evaluation: 09:15 - Subjective Subjective: Still significantly dyspnoic Diureses with IV Lasix (has lost 3 lbs) Mild rise in BUN/ Creatinin BP 102/70 mm Hg Pedal oedema still ++ (Sits up in recliner all day+all night Few basal rales+ K+ normal Will add Aldactone to Lasix to boost diuresis CMP being monitored for K+ and Creatinin levels Objective - Vital Signs/Intake and Output Vital Signs (last 24 hours): Temp Pulse Resp BP Pulse Ox 97.3 F L 77 18 116/76 96 12/04/17 08:01 12/04/17 08:01 12/04/17 08:01 12/04/17 09:07 12/04/17 08:01 - Medications Medications: Current Medications Allopurinol (Zyloprim) 300 mg PO DAILY [facility] Last Admin: 12/03/17 08:51 Dose: 300 mg Apixaban (Eliquis) 5 mg PO Q12 [facility] PRN Reason: Protocol Last Admin: 12/03/17 21:19 Dose: 5 mg Carvedilol (Coreg) 6.25 mg PO Q12 [facility] Last Admin: 12/03/17 21:20 Dose: 6.25 mg Docusate Sodium (Colace) 100 mg PO BID PRN PRN Reason: Constipation Last Admin: 12/02/17 17:58 Dose: 100 mg Furosemide (Lasix) 40 mg IV BID [facility] Last Admin: 12/04/17 09:07 Dose: 40 mg Ipratropium [place] (Atrovent) 0.5 mg IH RQ6 [facility] Last Admin: 12/04/17 08:40 Dose: 0.5 mg Levalbuterol HCl (Xopenex) 0.63 mg INH Q4H PRN PRN Reason: Shortness of Breath Last Admin: 12/04/17 04:45 Dose: 0.63 mg Methylprednisolone (Solu-Medrol) 30 mg IVP DAILY [facility] Last Admin: 12/04/17 09:13 Dose: 30 mg Mexiletine HCl (Mexiletine) 150 mg PO Q8 [facility] Last Admin: 12/04/17 00:39 Dose: 150 mg Montelukast Sodium (Singulair) 10 mg PO HS [facility] Last Admin: 12/03/17 21:20 Dose: 10 mg Pantoprazole Sodium (Protonix Ec Tab) 40 mg PO DAILY [facility] Last Admin: 12/03/17 08:50 Dose: 40 mg Sotalol HCl (Betapace) 160 mg PO BID [facility] Last Admin: 12/03/17 16:58 Dose: 160 mg Spironolactone (Aldactone) 50 mg PO DAILY [facility] - Labs Labs: 12/02/17 04:25 12/04/17 04:50 PT 27.4 Seconds (9.8-13.1) H 12/01/17 10:00 INR 2.4 (0.9-1.2) H 12/01/17 10:00 APTT 38.8 Seconds (25.6-37.1) H 12/01/17 10:00
[2017-12-04] MEDS: Pantoprazole 40 mg EC Tab PO SCH (10:40)
--- NOTE | 2017-12-04 10:40 | US ---
HISTORY: ELEVATED LFTS COMPARISON: Noncontrast abdomen pelvis CT exam 08/24/2009. TECHNIQUE: Sonographic evaluation of the abdomen. FINDINGS: LIVER: Measures 19.8 cm. Normal echogenicity of the liver parenchyma. No mass. No intrahepatic bile duct dilatation. GALLBLADDER: Gallbladder is mildly distended with mural thickening is suspected at the gallbladder wall potentially up to 6.7 mm. No pericholecystic fluid collection or cholelithiasis. There is no reported sonographic Marshall's sign either. Clinically correlate for potential cholecystitis nevertheless. COMMON BILE DUCT: Measures 6.7 mm. No stones. No dilatation. PANCREAS: Unremarkable as visualized. No mass. No ductal dilatation. RIGHT KIDNEY: Measures 12.7cm. Normal echogenicity. No calculus, mass, or hydronephrosis. A simple midpole cyst measures 1.6 x 1.7 x 1.2 cm identified in the interval with a 2nd smaller cyst identified at the lower pole measure 1.7 x 1.0 x 0.8 cm. LEFT KIDNEY: Measures 11.3cm. Normal echogenicity. No calculus, mass, or hydronephrosis. Prior left obstructive uropathy resolved. SPLEEN: Spleen is unremarkable diffusely, measuring 10.4 cm. AORTA: No aneurysmal dilatation. IVC: Unremarkable. OTHER FINDINGS: None. IMPRESSION: Prominent mural thickening gallbladder is in question with no other suspicious gallbladder findings to suggest cholecystitis. Clinically correlate nevertheless as the wall measures up to 6.7 mm thickness. Normal CBD caliber. No intrahepatic biliary dilatation. Borderline hepatomegaly.
--- NOTE | 2017-12-04 10:45 | US ---
PROCEDURE: Ultrasound of the Bladder HISTORY: UTI COMPARISON: None available. TECHNIQUE: Transabdominal ultrasonography of the pelvis was performed in longitudinal and transverse projections. Color Doppler technique was also utilized. FINDINGS: Unremarkable without wall thickening or intraluminal debris. No calculus or gross mass lesion. No free fluid in pelvis. Color Doppler imaging fail to demonstrate ureteral jets. Filling of the urinary bladder is limited at the time of the examination. Prevoid Volume: 167.2 cc. Post void residual: 0 cc. IMPRESSION: There is limited filling of the urinary bladder at the time of the examination as described above however no suspicious mural findings are demonstrated and there is no urolithiasis in the lumen. Postvoid residual is close to 0 from prevoid volume of 167.2 cc.
--- NOTE | 2017-12-04 11:48 | CP.PCM.PN ---
Subjective - Date & Time of Evaluation Date of Evaluation: 12/04/17 Time of Evaluation: 14:00 - Subjective Subjective: Patient seen and examined bedside. Feeling a little better.Still with dyspnea at rest while on O2 via NC but improved . Diuresed well last 24 hours with 3 lb weight loss . With episodes of multiple PVC-s on tele monitor today, denies any chest pain or discomfort Objective - Vital Signs/Intake and Output Vital Signs (last 24 hours): Temp Pulse Resp BP Pulse Ox 97.3 F L 77 18 116/76 96 12/04/17 08:01 12/04/17 10:40 12/04/17 10:15 12/04/17 10:40 12/04/17 08:01 - Medications Medications: Current Medications Allopurinol (Zyloprim) 300 mg PO DAILY [facility] Last Admin: 12/04/17 10:41 Dose: 300 mg Apixaban (Eliquis) 5 mg PO Q12 [facility] PRN Reason: Protocol Last Admin: 12/04/17 10:39 Dose: 5 mg Carvedilol (Coreg) 6.25 mg PO Q12 [facility] Last Admin: 12/04/17 10:38 Dose: 6.25 mg Docusate Sodium (Colace) 100 mg PO BID PRN PRN Reason: Constipation Last Admin: 12/02/17 17:58 Dose: 100 mg Furosemide (Lasix) 40 mg IV BID [facility] Last Admin: 12/04/17 09:07 Dose: 40 mg Ipratropium [place] (Atrovent) 0.5 mg IH RQ6 [facility] Last Admin: 12/04/17 08:40 Dose: 0.5 mg Levalbuterol HCl (Xopenex) 0.63 mg INH Q4H PRN PRN Reason: Shortness of Breath Last Admin: 12/04/17 04:45 Dose: 0.63 mg Methylprednisolone (Solu-Medrol) 30 mg IVP DAILY [facility] Last Admin: 12/04/17 09:13 Dose: 30 mg Mexiletine HCl (Mexiletine) 150 mg PO Q8 [facility] Last Admin: 12/04/17 10:40 Dose: 150 mg Montelukast Sodium (Singulair) 10 mg PO HS [facility] Last Admin: 12/03/17 21:20 Dose: 10 mg Pantoprazole Sodium (Protonix Ec Tab) 40 mg PO DAILY [facility] Last Admin: 12/04/17 10:40 Dose: 40 mg Sotalol HCl (Betapace) 160 mg PO BID [facility] Last Admin: 12/04/17 10:37 Dose: 160 mg Spironolactone (Aldactone) 50 mg PO DAILY [facility] - Labs Labs: 12/02/17 04:25 12/04/17 04:50 PT 27.4 Seconds (9.8-13.1) H 12/01/17 10:00 INR 2.4 (0.9-1.2) H 12/01/17 10:00 APTT 38.8 Seconds (25.6-37.1) H 12/01/17 10:00 - Constitutional Appears: Non-toxic, No Acute Distress, Chronically Ill, Other (obese ) - Head Exam Head Exam: ATRAUMATIC, NORMAL INSPECTION, NORMOCEPHALIC - Eye Exam Eye Exam: Normal appearance, PERRL Pupil Exam: NORMAL ACCOMODATION - ENT Exam ENT Exam: Mucous Membranes Moist, Normal Exam - Neck Exam Neck Exam: Full ROM, Normal Inspection - Respiratory Exam Respiratory Exam: NORMAL BREATHING PATTERN. absent: Accessory Muscle Use, Rhonchi, Wheezes, Respiratory Distress - Cardiovascular Exam Cardiovascular Exam: Irregular Rhythm, +S1, +S2. absent: JVD - GI/Abdominal Exam GI & Abdominal Exam: Soft, Normal Bowel Sounds. absent: Distended, Guarding, Tenderness, Rebound - Rectal Exam Rectal Exam: Deferred - Extremities Exam Extremities Exam: Normal Capillary Refill, Pedal Edema (1 +). absent: Calf Tenderness, Normal Inspection - Back Exam Back Exam: NORMAL INSPECTION - Neurological Exam Neurological Exam: Alert, Awake, CN II-XII Intact, Oriented x3 - Psychiatric Exam Psychiatric exam: Normal Affect, Normal Mood - Skin Skin Exam: Dry, Intact, Normal Color, Warm Assessment and Plan - Assessment and Plan (Free Text) Assessment: 57 yo male with history of Morbid Obesity, Asthma, severely dilated cardiomyopathy with EF 15 % , s/p AICD, HTN and previous DVT/PE came in because of progressively worsening SOB since 3 weeks ago. Claimed that condition started after coming back from [facility] about 3 months ago. Patient admitted with CHF exacerbation , cardiology consulted . 12/04 -with episodes of multiple PVC-s on monitor . Transferred to ICU for close monitoring 1.Acute on chronic CHF exacerbation Severe dilated cardiomyopathy with EF 15 % heart failure secondary to left ventricular dysfunction with multiple PVC-s and couplets on monitor today. Discussed with Dr. Saunders . Will transfer to ICU for close monitoring check Mg continue Sotalol ECHO done last month showed dilated cardiomyopathy with EF <15% on Lasix to 40 mg IV BID , coreg, lisinopril . Re started aldactone Continue Na and fluid restriction 2. Bronchial Asthma stable pulmonary consulted Asmanex 2 puff q 12hrs Duoneb via nebulizer q 4hrs prn Montelukast 10mg PO HS decreased SoluMedrol to 30 mg IV daily 3. History of Thromboembolism continue Eliquis 5mg PO q 12hrs 4. Sleep Apnea on CPAP at bedtime with supplemental oxygen 5. Morbid Obesity BMI 46 6. DVt prophylaxis on eliquist
--- NOTE | 2017-12-04 17:07 | CP.CCUPN ---
CCU Subjective - Physician Review Subjective (Free Text): 57M with cardiomyopathy, AICD, HTN, A Fib on chronic AC, also had DVT and PTE in the past, admitted approx 3 days ago for progressive SOB. Initial weight on admission was 307 lbs and has diuresed off 3 lbs with Lasix, and Aldactone resumed today after normalization of K levels. Currently, he is ambulatory in the room on Telemetry; monitor showed increased DI, no discharges from AICD noted as reported from patient. Otherwise denies any chest discomfort, less JACKSON today with activity, and denies any nausea, dizziness, lightheadedness, palpitations. Other Vitals and I/Os reviewed. ROS: No other pertinent negs or positives on 10+ system review, intubated. Allergies: NKDA Home Meds: Mexilitene, Sotolol, Coreg, Aldactone, Eliquis, Lasix, Asmanex, Spiriva, Allopurinol. PMH: All other historical Nursing and physician documentation reviewed to date; no new pertinent info noted relevant to current medical problems. EXAM- HEENT: no icterus, no gaze preference, pupils equal and reactive, no icterus NECK: No JVD, supple, carotids equal upstroke bilat/no bruits CHEST: decreased BS bases, otherwise clear bilat, no wheezes audible, AICD pocket R chest. HEART: regular distant, S1S2, no rubs. ABD: soft, obese, no distention, with tympany, no palp tenderness, BS hypoactive, dressing / drain intact. EXT: +bilat edema with chronic hyperemeic skin chnages distally in both legs. No peripheral/ digital cyanosis, no calf tenderness or palpable cords, distal pulses intact and symmetrical. NEURO: no gross focal motor deficits SKIN: no rashes, warm and dry. LABS: last set from 12/02/17: WBC= 12.5 HGB= 15.8 PLTs= 152K INR= 2.4 on Admission Todays Lytes- Na= 140 K= 4.2 CL= 100 HCO3= 26 BUN/Cr= 56/1.4 BS= 172 CXR: ( my interp): no gross consolidation. EKG / Telemetry (my interp): Increase frequency of Multifocal PVC pairs, no rhythm acceleration. MAJOR PROBLEMS: 1. Decompensated Congestive Cardiomyopathy with increasing multifocal PVCs DI; r/o new electrolyte disorder vs new ischemia 2. s/p Hyperkalemia 3. H/o A Fib on AC 4. CKD III 5. Polycythemia 6. Obesity PLAN: 1. Transfer to ICU for closer cardiac monitoring; repeat lytes , mg, phos. 2. Continue Mexilitene, Sotolol for now. Consider IV Lidocaine if DI worsens or becomes sustained. Consider referral for EP Cardio eval, 3. Ongoing diuresis as BP tolerates. CCU Objective - Vital Signs / Intake & Output Vital Signs (Last 4 hours): Vital Signs Temp Pulse Resp BP Pulse Ox 12/04/17 16:53 74 100/74 12/04/17 16:52 74 100/75 12/04/17 16:00 97.9 F 68 24 108/74 97 12/04/17 15:40 70 27 H 118/79 92 L 12/04/17 15:30 97.7 F 70 22 108/79 95 Intake and Output (Last 8hrs): Intake & Output 12/04/17 12/04/17 12/04/17 06:59 14:59 22:59 Intake Total 860 Balance 860 Weight 304 lb 304 lb Intake: Oral 860 Other: # Voids Urine, Voided 6 - Medications Active Medications: Active Medications Generic Name Dose Route Start Last Admin Trade Name Freq PRN Reason Stop Dose Admin Allopurinol 300 mg 12/02/17 09:00 12/04/17 10:41 Zyloprim PO 300 mg DAILY MICKI Administration Apixaban 5 mg 12/01/17 21:00 12/04/17 10:39 Eliquis PO 5 mg Q12 MICKI Administration Protocol Carvedilol 6.25 mg 12/01/17 21:00 12/04/17 10:38 Coreg PO 6.25 mg Q12 MICKI Administration Docusate Sodium 100 mg 12/01/17 13:53 12/02/17 17:58 Colace PO 100 mg BID PRN Administration Constipation Furosemide 40 mg 12/03/17 17:00 12/04/17 09:07 Lasix IV 40 mg BID MICKI Administration Ipratropium [place] 0.5 mg 12/03/17 14:00 12/04/17 13:16 Atrovent IH 0.5 mg RQ6 MICKI Administration Levalbuterol HCl 0.63 mg 12/01/17 17:17 12/04/17 04:45 Xopenex INH 0.63 mg Q4H PRN Administration Shortness of Breath Methylprednisolone 30 mg 12/04/17 09:00 12/04/17 09:13 Solu-Medrol IVP 30 mg DAILY MICKI Administration Mexiletine HCl 150 mg 12/01/17 17:00 12/04/17 16:53 Mexiletine PO 150 mg Q8 MICKI Administration Montelukast Sodium 10 mg 12/01/17 22:00 12/03/17 21:20 Singulair PO 10 mg HS MICKI Administration Pantoprazole Sodium 40 mg 12/02/17 09:00 12/04/17 10:40 Protonix Ec Tab PO 40 mg DAILY MICKI Administration Sotalol HCl 160 mg 12/01/17 17:00 12/04/17 16:52 Betapace PO 160 mg BID MICKI Administration Spironolactone 50 mg 12/04/17 09:30 12/04/17 13:11 Aldactone PO 50 mg DAILY MICKI Administration - Patient Studies Lab Studies: Microbiology Studies 12/01/17 10:00 Blood Culture - Preliminary Blood NO GROWTH AFTER 3 DAYS Lab Studies 12/04/17 12/04/17 12/04/17 Range/Units 15:39 09:21 04:50 Sodium 140 (132-148) mmol/l Potassium 4.2 (3.6-5.0) MMOL/L Chloride 100 (98-107) mmol/L Carbon Dioxide 26 (22-30) mmol/L Anion Gap 18 (10-20) BUN 56 H (9-20) mg/dl Creatinine 1.4 (0.8-1.5) mg/dl Est GFR ( Amer) > 60 Est GFR (Non-Af Amer) 52 POC Glucose (mg/dL) 113 H (65-110) mg/dL Random Glucose 146 H (75-110) mg/dL Calcium 9.5 (8.4-10.2) mg/dL Magnesium 2.2 (1.6-2.3) MG/DL Total Bilirubin 1.8 H (0.2-1.3) mg/dl AST 39 (17-59) U/L ALT 98 H (21-72) U/L Alkaline Phosphatase 45 (38-126) U/L Total Protein 6.4 (6.3-8.2) G/DL Albumin 3.6 (3.5-5.0) g/dL Globulin 2.8 (2.2-3.9) gm/dL Albumin/Globulin Ratio 1.3 (1.0-2.1) Prostate Specific Ag 0.577 (0.00-4.0) ng/ML Laboratory Results - last 24 hr 12/04/17 12/04/17 12/04/17 04:50 09:21 15:39 Sodium 140 Potassium 4.2 Chloride 100 Carbon Dioxide 26 Anion Gap 18 BUN 56 H Creatinine 1.4 Est GFR ( Amer) > 60 Est GFR (Non-Af Amer) 52 POC Glucose (mg/dL) 113 H Random Glucose 146 H Calcium 9.5 Magnesium 2.2 Total Bilirubin 1.8 H AST 39 ALT 98 H Alkaline Phosphatase 45 Total Protein 6.4 Albumin 3.6 Globulin 2.8 Albumin/Globulin Ratio 1.3 Prostate Specific Ag 0.577 EKG/Cardiology Studies: Cardiology / EKG Studies 12/04/17 EKG [ELECTROCARDIOGRAM] Stat Comment: Mode Of Transportation: PORTABLE Reason For Exam: MD order PRE OP:: N Does Patient Have a Pacemaker?: Yes PERFORMING PHYSICIAN/PROVIDER:: Mariano Aguilera Critical Care Progress Note - Nutrition Nutrition: Nutrition Category Date Time Status Heart Healthy Diet [DIET] Diets 12/04/17 Breakfast Active
[2017-12-04 17:31] LABS: 23 KD (IGG) BAND Nonreactive
[2017-12-05] MEDS: Ipratropium 0.02% Inhal Soln (0.5 mg/2.5 ml) UD IH SCH ×2 (01:00→07:57)
[2017-12-05 06:26] LABS: HEMOGLOBIN 16.7 g/dL (12.0-18.0); MEAN CORPUSCULAR HEMOGLOBIN 32.7 pg (27.0-31.0); MEAN CORPUSCULAR HGB CONC 32.7 g/dL (33.0-37.0); RBC 5.1 Mil/uL (4.40-5.90)
[2017-12-05 06:37] LABS: ALB/GLOB RATIO 1.3 (1.0-2.1); ALBUMIN 3.7 g/dL (3.5-5.0); ALT/SGPT 103 U/L (21-72); AST/SGOT 37 U/L (17-59); BLOOD UREA NITROGEN 60 mg/dl (9-20); CALCIUM 9.4 mg/dL (8.4-10.2); GFR AFRICAN-AMERICAN > 60; GFR NON-AFRICAN AMERICAN 52
--- NOTE | 2017-12-05 07:15 | CP.PCM.PN ---
Subjective - Date & Time of Evaluation Date of Evaluation: 12/05/17 Time of Evaluation: 07:15 - Subjective Subjective: pt continues to be dyspneic at rest BP 114/83, at positive balance overnight strict Na/fluid restriction and will increase lasix to 60 Q12 continues to have bi/trigeminy HD stable NAD Objective - Vital Signs/Intake and Output Vital Signs (last 24 hours): Temp Pulse Resp BP Pulse Ox 97.3 F L 69 33 H 106/78 98 12/05/17 04:00 12/05/17 06:00 12/05/17 06:00 12/05/17 06:00 12/05/17 06:00 Vitals Reviewed GEN: WDWN, alert, cooperative, MILD DYSPNEA at rest, obese HEENT: NCAT, PERRL, EOMI HEART: RRR, +S1S2, NO MRG LUNG: CTAB, NO WRR ABD: soft, NT, ND, No HSM, No masses EXT: normal pedal pulses, normal capillary refill NEURO: awake, alert, no focal deficits SKIN: warm, dry PSYCH: normal mood, normal affect - Medications Medications: Current Medications Allopurinol (Zyloprim) 300 mg PO DAILY [facility] Last Admin: 12/04/17 10:41 Dose: 300 mg Apixaban (Eliquis) 5 mg PO Q12 [facility] PRN Reason: Protocol Last Admin: 12/04/17 21:15 Dose: 5 mg Carvedilol (Coreg) 6.25 mg PO Q12 [facility] Last Admin: 12/04/17 21:14 Dose: 6.25 mg Docusate Sodium (Colace) 100 mg PO BID PRN PRN Reason: Constipation Last Admin: 12/02/17 17:58 Dose: 100 mg Furosemide (Lasix) 40 mg IV BID [facility] Last Admin: 12/04/17 17:38 Dose: 40 mg Ipratropium [place] (Atrovent) 0.5 mg IH RQ6 [facility] Last Admin: 12/05/17 01:00 Dose: 0.5 mg Levalbuterol HCl (Xopenex) 0.63 mg INH Q4H PRN PRN Reason: Shortness of Breath Last Admin: 12/04/17 19:39 Dose: 0.63 mg Methylprednisolone (Solu-Medrol) 30 mg IVP DAILY [facility] Last Admin: 12/04/17 09:13 Dose: 30 mg Mexiletine HCl (Mexiletine) 150 mg PO Q8 [facility] Last Admin: 12/05/17 01:15 Dose: 150 mg Montelukast Sodium (Singulair) 10 mg PO HS [facility] Last Admin: 12/04/17 21:15 Dose: 10 mg Pantoprazole Sodium (Protonix Ec Tab) 40 mg PO DAILY [facility] Last Admin: 12/04/17 10:40 Dose: 40 mg Sotalol HCl (Betapace) 160 mg PO BID [facility] Last Admin: 12/04/17 16:52 Dose: 160 mg Spironolactone (Aldactone) 50 mg PO DAILY [facility] Last Admin: 12/04/17 13:11 Dose: 50 mg - Labs Labs: 12/05/17 05:30 12/05/17 05:30 PT 27.4 Seconds (9.8-13.1) H 12/01/17 10:00 INR 2.4 (0.9-1.2) H 12/01/17 10:00 APTT 38.8 Seconds (25.6-37.1) H 12/01/17 10:00 Assessment and Plan - Assessment and Plan (Free Text) Plan: 57 yo male with history of Morbid Obesity, Asthma, severely dilated cardiomyopathy with EF 15 % , s/p AICD, HTN and previous DVT/PE came in because of progressively worsening SOB since 3 weeks ago. Claimed that condition started after coming back from [facility] about 3 months ago. Patient admitted with CHF exacerbation , cardiology consulted . 12/04 -with episodes of multiple PVC-s on monitor . Transferred to ICU for close monitoring 1.Acute on chronic CHF exacerbation Severe dilated cardiomyopathy with EF 15 % heart failure secondary to left ventricular dysfunction with multiple PVC-s, bi/trigeminy on monitor overnight as well Discussed with Dr. Saunders . -transferred to ICU for close monitoring check Mg continue Sotalol ECHO done last month showed dilated cardiomyopathy with EF <15% on Lasix to 60 mg IV q12 , coreg, lisinopril . Re started aldactone Continue Na and fluid restriction 2. Bronchial Asthma stable pulmonary consulted Asmanex 2 puff q 12hrs Duoneb via nebulizer q 4hrs prn Montelukast 10mg PO HS decreased SoluMedrol to 30 mg IV daily 3. History of Thromboembolism continue Eliquis 5mg PO q 12hrs 4. Sleep Apnea on CPAP at bedtime with supplemental oxygen 5. Morbid Obesity BMI 46 6. DVt prophylaxis on eliquist
[2017-12-05] MEDS: Pantoprazole 40 mg EC Tab PO SCH (08:36)
[2017-12-05] MEDS: MethylPREDNISolone 40 mg Vial IVP SCH (08:37)
--- NOTE | 2017-12-05 10:33 | CARD ---
APPROVED REPORT EKG Measurement Heart [id number] [id number] <Conclusion> dual chamber pacemaker with apparrent good sensing and pacing One inherent beat or premature ventricular complex that was correctly sensed Abnormal ECG
--- NOTE | 2017-12-05 10:57 | CP.PCM.PN ---
Subjective - Date & Time of Evaluation Date of Evaluation: 12/05/17 Time of Evaluation: 10:00 - Subjective Subjective: Pt was moved to ICU last evening because of PVC's on telemetry Pt is in his normal rhythm now no PVC's noted Pt continues to c/o SOB / PND / orthopnea Pedal edema 3+ Aldactone was added yesterday BP: 117/89 Na: 136 K:4.3 Objective - Vital Signs/Intake and Output Vital Signs (last 24 hours): Temp Pulse Resp BP Pulse Ox 97.9 F 72 22 117/89 97 12/05/17 08:00 12/05/17 10:00 12/05/17 10:00 12/05/17 10:00 12/05/17 10:00 - Medications Medications: Current Medications Allopurinol (Zyloprim) 300 mg PO DAILY [facility] Last Admin: 12/05/17 08:38 Dose: 300 mg Apixaban (Eliquis) 5 mg PO Q12 [facility] PRN Reason: Protocol Last Admin: 12/05/17 08:35 Dose: 5 mg Carvedilol (Coreg) 6.25 mg PO Q12 [facility] Last Admin: 12/05/17 09:16 Dose: 6.25 mg Docusate Sodium (Colace) 100 mg PO BID PRN PRN Reason: Constipation Last Admin: 12/02/17 17:58 Dose: 100 mg Furosemide (Lasix) 60 mg IV Q12 [facility] Ipratropium [place] (Atrovent) 0.5 mg IH RQ6 [facility] Last Admin: 12/05/17 07:57 Dose: 0.5 mg Levalbuterol HCl (Xopenex) 0.63 mg INH Q4H PRN PRN Reason: Shortness of Breath Last Admin: 12/04/17 19:39 Dose: 0.63 mg Methylprednisolone (Solu-Medrol) 30 mg IVP DAILY [facility] Last Admin: 12/05/17 08:37 Dose: 30 mg Mexiletine HCl (Mexiletine) 150 mg PO Q8 [facility] Last Admin: 12/05/17 08:36 Dose: 150 mg Montelukast Sodium (Singulair) 10 mg PO HS [facility] Last Admin: 12/04/17 21:15 Dose: 10 mg Pantoprazole Sodium (Protonix Ec Tab) 40 mg PO DAILY [facility] Last Admin: 12/05/17 08:36 Dose: 40 mg Sotalol HCl (Betapace) 160 mg PO BID [facility] Last Admin: 12/05/17 08:34 Dose: 160 mg Spironolactone (Aldactone) 50 mg PO DAILY [facility] Last Admin: 12/05/17 08:37 Dose: 50 mg - Labs Labs: 12/05/17 05:30 12/05/17 05:30 PT 27.4 Seconds (9.8-13.1) H 12/01/17 10:00 INR 2.4 (0.9-1.2) H 12/01/17 10:00 APTT 38.8 Seconds (25.6-37.1) H 12/01/17 10:00 - Respiratory Exam Respiratory Exam: Decreased Breath Sounds - Cardiovascular Exam Cardiovascular Exam: REGULAR RHYTHM - Extremities Exam Extremities Exam: Pedal Edema Additional comments: 3+ pedal edema
--- NOTE | 2017-12-05 11:42 | CP.PCM.PN ---
Subjective - Date & Time of Evaluation Date of Evaluation: 12/05/17 Time of Evaluation: 11:41 - Subjective Subjective: Seated in a bedside chair. Appears fatigued. Slept poorly again. Awakens abruptly after 2-3 hours sleep. Had some tremulous feeling this morning with palpitations, occurred after AM meds and ipratropium neb. Ventricular ectopy still noted on monitor, much less frequent than yesterday. SpO2 remains 95%+, afebrile, normotensive, episodic tachypnea. Leukocytosis and hyperglycemia are likely steroid related. Tolerating diuretic therapy, but more hemoconcentrated. Had been in need of phlebotomy in the past. Dependant edema still 1+ in both LE's, L>R, but much improved. No cyanosis, no calf tenderness, no palpable venous cords. Neck is supple and trachea midline, no visible JVD. No dullness on chest percussion. Equal expansion. Breath sounds are slightly diminished bilaterally. No rales. No audible wheezing or bronchial breath sounds. No rhonchi. Heart sounds are distant, rhythm regular with occasional PHBs. Will discontinue IV solumedrol and nebulized ipratropium. Resume inhaled steroids; Asmanex 220mcg, one inhalation BID. Will maintain nebulizer low dose levalbuterol as needed only. Furosemide has been increased to 60MG IV BID. His material preparation worker at [facility] has been notified of the current issues. Objective - Vital Signs/Intake and Output Vital Signs (last 24 hours): Temp Pulse Resp BP Pulse Ox 97.9 F 72 22 117/89 97 12/05/17 08:00 12/05/17 10:00 12/05/17 10:00 12/05/17 10:00 12/05/17 10:00 Intake and Output: 12/04/17 12/05/17 23:59 11:59 Intake Total 860 Balance 860 - Medications Medications: Current Medications Allopurinol (Zyloprim) 300 mg PO DAILY [facility] Last Admin: 12/05/17 08:38 Dose: 300 mg Apixaban (Eliquis) 5 mg PO Q12 [facility] PRN Reason: Protocol Last Admin: 12/05/17 08:35 Dose: 5 mg Carvedilol (Coreg) 6.25 mg PO Q12 [facility] Last Admin: 12/05/17 09:16 Dose: 6.25 mg Docusate Sodium (Colace) 100 mg PO BID PRN PRN Reason: Constipation Last Admin: 12/02/17 17:58 Dose: 100 mg Furosemide (Lasix) 60 mg IV Q12 [facility] Levalbuterol HCl (Xopenex) 0.63 mg INH Q4H PRN PRN Reason: Shortness of Breath Last Admin: 12/04/17 19:39 Dose: 0.63 mg Mexiletine HCl (Mexiletine) 150 mg PO Q8 [facility] Last Admin: 12/05/17 08:36 Dose: 150 mg Mometasone Furoate (Asmanex Twisthaler 220 Mcg) 1 puff INH BID [facility] Montelukast Sodium (Singulair) 10 mg PO HS [facility] Last Admin: 12/04/17 21:15 Dose: 10 mg Pantoprazole Sodium (Protonix Ec Tab) 40 mg PO DAILY [facility] Last Admin: 12/05/17 08:36 Dose: 40 mg Sotalol HCl (Betapace) 160 mg PO BID [facility] Last Admin: 12/05/17 08:34 Dose: 160 mg Spironolactone (Aldactone) 50 mg PO DAILY [facility] Last Admin: 12/05/17 08:37 Dose: 50 mg - Labs Labs: 12/05/17 05:30 12/05/17 05:30 PT 27.4 Seconds (9.8-13.1) H 12/01/17 10:00 INR 2.4 (0.9-1.2) H 12/01/17 10:00 APTT 38.8 Seconds (25.6-37.1) H 12/01/17 10:00 Assessment and Plan (1) CHF exacerbation Status: Acute (2) Asthma Status: Chronic (3) Dilated cardiomyopathy Status: Chronic (4) Hypoxemia Status: Chronic (5) Obstructive sleep apnea syndrome in adult Status: Chronic
--- NOTE | 2017-12-05 12:24 | CP.CCUPN ---
CCU Objective - Vital Signs / Intake & Output Vital Signs (Last 4 hours): Vital Signs Pulse Resp BP Pulse Ox 12/05/17 11:00 66 18 117/70 99 12/05/17 10:00 72 22 117/89 97 12/05/17 09:16 78 114/83 12/05/17 09:00 71 38 H 114/83 98 12/05/17 08:36 74 109/65 12/05/17 08:34 74 109/65 Intake and Output (Last 8hrs): Intake & Output 12/04/17 12/05/17 12/05/17 22:59 06:59 14:59 Intake Total 860 240 Balance 860 240 Weight 300 lb Intake: Oral 860 240 Other: # Voids Urine, Voided 6 - Medications Active Medications: Active Medications Generic Name Dose Route Start Last Admin Trade Name Freq PRN Reason Stop Dose Admin Allopurinol 300 mg 12/02/17 09:00 12/05/17 08:38 Zyloprim PO 300 mg DAILY [facility]I Administration Apixaban 5 mg 12/01/17 21:00 12/05/17 08:35 Eliquis PO 5 mg Q12 [facility]I Administration Protocol Carvedilol 6.25 mg 12/01/17 21:00 12/05/17 09:16 Coreg PO 6.25 mg Q12 MICKI Administration Docusate Sodium 100 mg 12/01/17 13:53 12/02/17 17:58 Colace PO 100 mg BID PRN Administration Constipation Furosemide 60 mg 12/05/17 21:00 Lasix IV Q12 [facility] Levalbuterol HCl 0.63 mg 12/01/17 17:17 12/04/17 19:39 Xopenex INH 0.63 mg Q4H PRN Administration Shortness of Breath Mexiletine HCl 150 mg 12/01/17 17:00 12/05/17 08:36 Mexiletine PO 150 mg Q8 MICKI Administration Mometasone Furoate 1 puff 12/05/17 17:00 Asmanex Twisthaler 220 Mcg INH BID [facility] Montelukast Sodium 10 mg 12/01/17 22:00 12/04/17 21:15 Singulair PO 10 mg HS [facility]ICKI Administration Pantoprazole Sodium 40 mg 12/02/17 09:00 12/05/17 08:36 Protonix Ec Tab PO 40 mg DAILY [facility] Administration Sotalol HCl 160 mg 12/01/17 17:00 12/05/17 08:34 Betapace PO 160 mg BID [facility]I Administration Spironolactone 50 mg 12/04/17 09:30 12/05/17 08:37 Aldactone PO 50 mg DAILY [facility] Administration - Patient Studies Lab Studies: Microbiology Studies 12/01/17 10:00 Blood Culture - Preliminary Blood NO GROWTH AFTER 4 DAYS Lab Studies 12/05/17 12/05/17 12/05/17 Range/Units 05:30 05:30 04:55 WBC 15.0 H (4.8-10.8) K/uL RBC 5.10 (4.40-5.90) Mil/uL Hgb 16.7 (12.0-18.0) g/dL Hct 51.0 (35.0-51.0) % MCV 100.0 H (80.0-94.0) fl MCH 32.7 H (27.0-31.0) pg MCHC 32.7 L (33.0-37.0) g/dL RDW 19.0 H (11.5-14.5) % Plt Count 152 (130-400) K/uL Sodium 136 (132-148) mmol/l Potassium 4.3 (3.6-5.0) MMOL/L Chloride 96 L (98-107) mmol/L Carbon Dioxide 26 (22-30) mmol/L Anion Gap 18 (10-20) BUN 60 H (9-20) mg/dl Creatinine 1.4 (0.8-1.5) mg/dl Est GFR ( Amer) > 60 Est GFR (Non-Af Amer) 52 POC Glucose (mg/dL) 140 H (65-110) mg/dL Random Glucose 165 H (75-110) mg/dL Calcium 9.4 (8.4-10.2) mg/dL Magnesium 2.1 (1.6-2.3) MG/DL Total Bilirubin 1.8 H (0.2-1.3) mg/dl AST 37 (17-59) U/L ALT 103 H (21-72) U/L Alkaline Phosphatase 44 (38-126) U/L Total Protein 6.4 (6.3-8.2) G/DL Albumin 3.7 (3.5-5.0) g/dL Globulin 2.8 (2.2-3.9) gm/dL Albumin/Globulin Ratio 1.3 (1.0-2.1) Lyme IgG 18 kDa Band Lyme IgG 23 kDa Band Lyme IgG 28 kDa Band Lyme IgG 30 kDa Band Lyme IgG 39 kDa Band Lyme IgG 41 kDa Band Lyme IgG 45 kDa Band Lyme IgG 58 kDa Band Lyme IgG 66 kDa Band Lyme IgG 93 kDa Band Lyme IgG W Blot Interp (Negative) Lyme IgM 23 kDa Band Lyme IgM 39 kDa Band Lyme IgM 41 kDa Band Lyme IgM W Blot Interp (Negative) 12/04/17 12/02/17 Range/Units 15:39 04:25 WBC (4.8-10.8) K/uL RBC (4.40-5.90) Mil/uL Hgb (12.0-18.0) g/dL Hct (35.0-51.0) % MCV (80.0-94.0) fl MCH (27.0-31.0) pg MCHC (33.0-37.0) g/dL RDW (11.5-14.5) % Plt Count (130-400) K/uL Sodium (132-148) mmol/l Potassium (3.6-5.0) MMOL/L Chloride (98-107) mmol/L Carbon Dioxide (22-30) mmol/L Anion Gap (10-20) BUN (9-20) mg/dl Creatinine (0.8-1.5) mg/dl Est GFR ( Amer) Est GFR (Non-Af Amer) POC Glucose (mg/dL) (65-110) mg/dL Random Glucose (75-110) mg/dL Calcium (8.4-10.2) mg/dL Magnesium 2.2 (1.6-2.3) MG/DL Total Bilirubin (0.2-1.3) mg/dl AST (17-59) U/L ALT (21-72) U/L Alkaline Phosphatase (38-126) U/L Total Protein (6.3-8.2) G/DL Albumin (3.5-5.0) g/dL Globulin (2.2-3.9) gm/dL Albumin/Globulin Ratio (1.0-2.1) Lyme IgG 18 kDa Band Nonreactive Lyme IgG 23 kDa Band Nonreactive Lyme IgG 28 kDa Band Nonreactive Lyme IgG 30 kDa Band Nonreactive Lyme IgG 39 kDa Band Nonreactive Lyme IgG 41 kDa Band Nonreactive Lyme IgG 45 kDa Band Nonreactive Lyme IgG 58 kDa Band Nonreactive Lyme IgG 66 kDa Band Nonreactive Lyme IgG 93 kDa Band Nonreactive Lyme IgG W Blot Interp Negative (Negative) Lyme IgM 23 kDa Band Nonreactive Lyme IgM 39 kDa Band Nonreactive Lyme IgM 41 kDa Band Nonreactive Lyme IgM W Blot Interp Negative (Negative) Laboratory Results - last 24 hr 12/02/17 12/04/17 12/05/17 04:25 15:39 04:55 WBC RBC Hgb Hct MCV MCH MCHC RDW Plt Count Sodium Potassium Chloride Carbon Dioxide Anion Gap BUN Creatinine Est GFR ( Amer) Est GFR (Non-Af Amer) POC Glucose (mg/dL) 140 H Random Glucose Calcium Magnesium 2.2 Total Bilirubin AST ALT Alkaline Phosphatase Total Protein Albumin Globulin Albumin/Globulin Ratio Lyme IgG 18 kDa Band Nonreactive Lyme IgG 23 kDa Band Nonreactive Lyme IgG 28 kDa Band Nonreactive Lyme IgG 30 kDa Band Nonreactive Lyme IgG 39 kDa Band Nonreactive Lyme IgG 41 kDa Band Nonreactive Lyme IgG 45 kDa Band Nonreactive Lyme IgG 58 kDa Band Nonreactive Lyme IgG 66 kDa Band Nonreactive Lyme IgG 93 kDa Band Nonreactive Lyme IgG W Blot Interp Negative Lyme IgM 23 kDa Band Nonreactive Lyme IgM 39 kDa Band Nonreactive Lyme IgM 41 kDa Band Nonreactive Lyme IgM W Blot Interp Negative 12/05/17 12/05/17 05:30 05:30 WBC 15.0 H RBC 5.10 Hgb 16.7 Hct 51.0 MCV 100.0 H MCH 32.7 H MCHC 32.7 L RDW 19.0 H Plt Count 152 Sodium 136 Potassium 4.3 Chloride 96 L Carbon Dioxide 26 Anion Gap 18 BUN 60 H Creatinine 1.4 Est GFR ( Amer) > 60 Est GFR (Non-Af Amer) 52 POC Glucose (mg/dL) Random Glucose 165 H Calcium 9.4 Magnesium 2.1 Total Bilirubin 1.8 H AST 37 ALT 103 H Alkaline Phosphatase 44 Total Protein 6.4 Albumin 3.7 Globulin 2.8 Albumin/Globulin Ratio 1.3 Lyme IgG 18 kDa Band Lyme IgG 23 kDa Band Lyme IgG 28 kDa Band Lyme IgG 30 kDa Band Lyme IgG 39 kDa Band Lyme IgG 41 kDa Band Lyme IgG 45 kDa Band Lyme IgG 58 kDa Band Lyme IgG 66 kDa Band Lyme IgG 93 kDa Band Lyme IgG W Blot Interp Lyme IgM 23 kDa Band Lyme IgM 39 kDa Band Lyme IgM 41 kDa Band Lyme IgM W Blot Interp Critical Care Progress Note - Nutrition Nutrition: Nutrition Category Date Time Status Heart Healthy Diet [DIET] Diets 12/04/17 Breakfast Active Assessment/Plan - Assessment and Plan (Free Text) Assessment: 1.CHF exacerbation, h/o non-ischemic cardiomyopathy heart failure secondary to left ventricular dysfunction Had multiple PVC-s, bi/trigeminy yesterday, not today in SR now l continue Sotalol ECHO done last month showed dilated cardiomyopathy with EF <15% on Lasix to 60 mg IV q12 , coreg, lisinopril and aldactone Continue Na and fluid restriction 2. Bronchial Asthma stable Asmanex 2 puff q 12hrs Duoneb via nebulizer q 4hrs prn Montelukast 10mg PO HS SoluMedrol to 30 mg IV daily 3. History of Thromboembolism continue Eliquis 5mg PO q 12hrs 4. Sleep Apnea on CPAP at bedtime with supplemental oxygen 5. Morbid Obesity BMI 46
[2017-12-05] MEDS: Mometasone 220 mcg/puff-14 puff Inh INH SCH (16:31)
[2017-12-06 06:00] LABS: HEMOGLOBIN 17.1 g/dL (12.0-18.0); MEAN CELL VOLUME 101.1 fl (80.0-94.0); MEAN CORPUSCULAR HEMOGLOBIN 33.2 pg (27.0-31.0); MEAN CORPUSCULAR HGB CONC 32.8 g/dL (33.0-37.0); RBC 5.15 Mil/uL (4.40-5.90); RED CELL DISTRIBUTION WIDTH 19.3 % (11.5-14.5); WHITE BLOOD COUNT 16.8 K/uL (4.8-10.8)
[2017-12-06 06:17] LABS: ALB/GLOB RATIO 1.2 (1.0-2.1); ALBUMIN 3.5 g/dL (3.5-5.0); ALT/SGPT 87 U/L (21-72); AST/SGOT 27 U/L (17-59); BLOOD UREA NITROGEN 55 mg/dl (9-20); CALCIUM 9.3 mg/dL (8.4-10.2); GFR AFRICAN-AMERICAN > 60; GFR NON-AFRICAN AMERICAN > 60
[2017-12-06] MEDS: Mometasone 220 mcg/puff-14 puff Inh INH SCH ×2 (08:58→17:26)
[2017-12-06] MEDS: Pantoprazole 40 mg EC Tab PO SCH (09:00)
--- NOTE | 2017-12-06 10:37 | CP.PCM.PN ---
Subjective - Date & Time of Evaluation Date of Evaluation: 12/06/17 Time of Evaluation: 10:36 - Subjective Subjective: dyspnea better than yesterday no apparent increased work of breathing continues to have trigeminy on tele difficulty sleeping good diuresis overnight renal fx improving hd stable nad Objective - Vital Signs/Intake and Output Vital Signs (last 24 hours): Temp Pulse Resp BP Pulse Ox 97.5 F L 87 25 H 111/64 94 L 12/06/17 08:00 12/06/17 10:00 12/06/17 10:00 12/06/17 10:00 12/06/17 10:00 Vitals Reviewed GEN: morbid obese, alert, cooperative HEENT: NCAT, PERRL, EOMI HEART: RRR, +S1S2, NO MRG LUNG: CTAB, NO WRR ABD: soft, NT, ND, No HSM, No masses EXT: normal pedal pulses, normal capillary refill NEURO: awake, alert, no focal deficits SKIN: warm, dry PSYCH: normal mood, normal affect - Medications Medications: Current Medications Allopurinol (Zyloprim) 300 mg PO DAILY [facility] Last Admin: 12/06/17 08:59 Dose: 300 mg Apixaban (Eliquis) 5 mg PO Q12 [facility] PRN Reason: Protocol Last Admin: 12/06/17 09:05 Dose: 5 mg Carvedilol (Coreg) 6.25 mg PO Q12 [facility] Last Admin: 12/06/17 09:03 Dose: 6.25 mg Docusate Sodium (Colace) 100 mg PO BID PRN PRN Reason: Constipation Last Admin: 12/02/17 17:58 Dose: 100 mg Furosemide (Lasix) 60 mg IV Q12 [facility] Last Admin: 12/06/17 09:00 Dose: 60 mg Levalbuterol HCl (Xopenex) 0.63 mg INH Q4H PRN PRN Reason: Shortness of Breath Last Admin: 12/04/17 19:39 Dose: 0.63 mg Mexiletine HCl (Mexiletine) 150 mg PO Q8 [facility] Last Admin: 12/06/17 08:56 Dose: 150 mg Mometasone Furoate (Asmanex Twisthaler 220 Mcg) 1 puff INH BID [facility] Last Admin: 12/06/17 08:58 Dose: 1 puff Montelukast Sodium (Singulair) 10 mg PO HS [facility] Last Admin: 12/05/17 21:03 Dose: 10 mg Pantoprazole Sodium (Protonix Ec Tab) 40 mg PO DAILY [facility] Last Admin: 12/06/17 09:00 Dose: 40 mg Sotalol HCl (Betapace) 160 mg PO BID [facility] Last Admin: 12/06/17 09:04 Dose: 160 mg Spironolactone (Aldactone) 50 mg PO DAILY [facility] Last Admin: 12/06/17 08:57 Dose: 50 mg - Labs Labs: 12/06/17 04:45 12/06/17 04:45 PT 27.4 Seconds (9.8-13.1) H 12/01/17 10:00 INR 2.4 (0.9-1.2) H 12/01/17 10:00 APTT 38.8 Seconds (25.6-37.1) H 12/01/17 10:00 Assessment and Plan - Assessment and Plan (Free Text) Plan: 57 yo male with history of Morbid Obesity, Asthma, severely dilated cardiomyopathy with EF 15 % , s/p AICD, HTN and previous DVT/PE came in because of progressively worsening SOB since 3 weeks ago. Claimed that condition started after coming back from [facility] about 3 months ago. Patient admitted with CHF exacerbation , cardiology consulted . 12/04 -with episodes of multiple PVC-s on monitor . Transferred to ICU for close monitoring 1.Acute on chronic CHF exacerbation Severe dilated cardiomyopathy with EF 15 % heart failure secondary to left ventricular dysfunction with multiple PVC-s, bi/trigeminy on monitor overnight as well Discussed with Dr. Saunders . -transferred to ICU for close monitoring check Mg continue Sotalol ECHO done last month showed dilated cardiomyopathy with EF <15% on Lasix to 60 mg IV q12 , coreg, lisinopril . Re started aldactone good diuresis overnight, dyspnea improving Continue Na and fluid restriction 2. Bronchial Asthma stable pulmonary consulted Asmanex 2 puff q 12hrs Duoneb via nebulizer q 4hrs prn Montelukast 10mg PO HS decreased SoluMedrol to 30 mg IV daily 3. History of Thromboembolism continue Eliquis 5mg PO q 12hrs 4. Sleep Apnea on CPAP at bedtime with supplemental oxygen 5. Morbid Obesity BMI 46 6. DVt prophylaxis on eliquis
--- NOTE | 2017-12-06 11:33 | CP.PCM.PN ---
Subjective - Date & Time of Evaluation Date of Evaluation: 12/06/17 Time of Evaluation: 10:00 - Subjective Subjective: Pt examined sitting in chair still admits to SOB/Orthopnea Pedal edema minimally less weight : 301 (down from 310 on admission) Na: 141 K: 4.3 Continue present Tx Objective - Vital Signs/Intake and Output Vital Signs (last 24 hours): Temp Pulse Resp BP Pulse Ox 97.5 F L 87 25 H 111/64 94 L 12/06/17 08:00 12/06/17 10:00 12/06/17 10:00 12/06/17 10:00 12/06/17 10:00 - Medications Medications: Current Medications Allopurinol (Zyloprim) 300 mg PO DAILY [facility] Last Admin: 12/06/17 08:59 Dose: 300 mg Apixaban (Eliquis) 5 mg PO Q12 [facility] PRN Reason: Protocol Last Admin: 12/06/17 09:05 Dose: 5 mg Carvedilol (Coreg) 6.25 mg PO Q12 [facility] Last Admin: 12/06/17 09:03 Dose: 6.25 mg Docusate Sodium (Colace) 100 mg PO BID PRN PRN Reason: Constipation Last Admin: 12/02/17 17:58 Dose: 100 mg Furosemide (Lasix) 60 mg IV Q12 [facility] Last Admin: 12/06/17 09:00 Dose: 60 mg Levalbuterol HCl (Xopenex) 0.63 mg INH Q4H PRN PRN Reason: Shortness of Breath Last Admin: 12/04/17 19:39 Dose: 0.63 mg Mexiletine HCl (Mexiletine) 150 mg PO Q8 [facility] Last Admin: 12/06/17 08:56 Dose: 150 mg Mometasone Furoate (Asmanex Twisthaler 220 Mcg) 1 puff INH BID [facility] Last Admin: 12/06/17 08:58 Dose: 1 puff Montelukast Sodium (Singulair) 10 mg PO HS [facility] Last Admin: 12/05/17 21:03 Dose: 10 mg Pantoprazole Sodium (Protonix Ec Tab) 40 mg PO DAILY [facility] Last Admin: 12/06/17 09:00 Dose: 40 mg Sotalol HCl (Betapace) 160 mg PO BID [facility] Last Admin: 12/06/17 09:04 Dose: 160 mg Spironolactone (Aldactone) 50 mg PO DAILY [facility] Last Admin: 12/06/17 08:57 Dose: 50 mg - Labs Labs: 12/06/17 04:45 12/06/17 04:45 PT 27.4 Seconds (9.8-13.1) H 12/01/17 10:00 INR 2.4 (0.9-1.2) H 12/01/17 10:00 APTT 38.8 Seconds (25.6-37.1) H 12/01/17 10:00
[2017-12-06 13:32] LABS: URINE BILIRUBIN NEGATIVE (NEGATIVE); URINE BLOOD NEGATIVE (NEGATIVE); URINE CLARITY CLEAR (Clear); URINE COLOR YELLOW (YELLOW); URINE GLUCOSE (UA) NEG (Normal); URINE LEUKOCYTE ESTERASE NEG Leu/uL (Negative); URINE PROTEIN NEGATIVE (NEGATIVE); URINE UROBILINOGEN 0.2-1.0 mg/dL (0.2-1.0)
--- NOTE | 2017-12-06 13:44 | RAD ---
HISTORY: Dyspnea COMPARISON: Comparison chest 12/01/2017 TECHNIQUE: Chest PA and lateral FINDINGS: LUNGS: Central pulmonary vasculature is increased possibly due to mild chronic compensated pulmonary edema/ CHF. Suspect minor bibasilar atelectasis PLEURA: No significant pleural effusion identified. No pneumothorax apparent. CARDIOVASCULAR: Heart remains markedly enlarged. No change multi lead pacemaker/ defibrillator. OSSEOUS STRUCTURES: No significant abnormalities. VISUALIZED UPPER ABDOMEN: Normal. OTHER FINDINGS: None. IMPRESSION: Central pulmonary vasculature is increased possibly due to mild chronic compensated pulmonary edema/ CHF. Suspect minor bibasilar atelectasis. Marked cardiomegaly.
--- NOTE | 2017-12-06 16:30 | CP.CCUPN ---
CCU Subjective - Physician Review Events Since Last Encounter (Free Text): 12/06/17 16:27 alert and oriented, no sob while resting , gets SOP with mild exertion, NO pain , CCU Objective - Vital Signs / Intake & Output Vital Signs (Last 4 hours): Vital Signs Temp Pulse Resp BP Pulse Ox 12/06/17 16:00 97.9 F 68 24 104/71 94 L 12/06/17 14:00 69 22 100/55 L 97 Intake and Output (Last 8hrs): Intake & Output 12/06/17 12/06/17 12/06/17 06:59 14:59 22:59 Weight 301 lb 8 oz Other: # Voids Urine, Voided 4 - Physical Exam Narrative Physical Exam (Free Text): 12/06/17 16:28 P/E Neck: No JVD Lungs: few rt basal crackles: Abdomen : Soft,, no tenderness Ext; +1 edema Neuro: no focal signs. - Medications Active Medications: Active Medications Generic Name Dose Route Start Last Admin Trade Name Freq PRN Reason Stop Dose Admin Allopurinol 300 mg 12/02/17 09:00 12/06/17 08:59 Zyloprim PO 300 mg DAILY [facility] Administration Apixaban 5 mg 12/01/17 21:00 12/06/17 09:05 Eliquis PO 5 mg Q12 [facility] Administration Protocol Carvedilol 6.25 mg 12/01/17 21:00 12/06/17 09:03 Coreg PO 6.25 mg Q12 [facility] Administration Docusate Sodium 100 mg 12/01/17 13:53 12/02/17 17:58 Colace PO 100 mg BID PRN Administration Constipation Furosemide 60 mg 12/05/17 21:00 12/06/17 09:00 Lasix IV 60 mg Q12 [facility] Administration Levalbuterol HCl 0.63 mg 12/01/17 17:17 12/04/17 19:39 Xopenex INH 0.63 mg Q4H PRN Administration Shortness of Breath Mexiletine HCl 150 mg 12/01/17 17:00 12/06/17 08:56 Mexiletine PO 150 mg Q8 [facility] Administration Mometasone Furoate 1 puff 12/05/17 17:00 12/06/17 08:58 Asmanex Twisthaler 220 Mcg INH 1 puff BID [facility] Administration Montelukast Sodium 10 mg 12/01/17 22:00 12/05/17 21:03 Singulair PO 10 mg HS [facility] Administration Pantoprazole Sodium 40 mg 12/02/17 09:00 12/06/17 09:00 Protonix Ec Tab PO 40 mg DAILY [facility] Administration Sotalol HCl 160 mg 12/01/17 17:00 12/06/17 09:04 Betapace PO 160 mg BID [facility] Administration Spironolactone 50 mg 12/04/17 09:30 12/06/17 08:57 Aldactone PO 50 mg DAILY [facility] Administration - Patient Studies Lab Studies: Microbiology Studies 12/01/17 10:00 Blood Culture - Final Blood NO GROWTH AFTER 5 DAYS Gram Stain - Final TEST NOT PERFORMED 12/02/17 21:17 Ova and Parasite Concentrate Exam - Final Stool 12/04/17 16:00 MRSA Culture (Admit) - Final Naris MRSA NOT DETECTED 12/03/17 03:55 Urine Culture - Final Urine,Clean Catch Gram Positive Cocci Lab Studies 12/06/17 12/06/17 12/06/17 Range/Units 10:20 10:20 04:45 WBC 16.8 H (4.8-10.8) K/uL RBC 5.15 (4.40-5.90) Mil/uL Hgb 17.1 (12.0-18.0) g/dL Hct 52.0 H (35.0-51.0) % MCV 101.1 H (80.0-94.0) fl MCH 33.2 H (27.0-31.0) pg MCHC 32.8 L (33.0-37.0) g/dL RDW 19.3 H (11.5-14.5) % Plt Count 154 (130-400) K/uL Sodium (132-148) mmol/l Potassium (3.6-5.0) MMOL/L Chloride (98-107) mmol/L Carbon Dioxide (22-30) mmol/L Anion Gap (10-20) BUN (9-20) mg/dl Creatinine (0.8-1.5) mg/dl Est GFR ( Amer) Est GFR (Non-Af Amer) Random Glucose (75-110) mg/dL Calcium (8.4-10.2) mg/dL Phosphorus (2.5-4.5) mg/dl Magnesium (1.6-2.3) MG/DL Total Bilirubin (0.2-1.3) mg/dl AST (17-59) U/L ALT (21-72) U/L Alkaline Phosphatase (38-126) U/L Total Protein (6.3-8.2) G/DL Albumin (3.5-5.0) g/dL Globulin (2.2-3.9) gm/dL Albumin/Globulin Ratio (1.0-2.1) Urine Color Yellow (YELLOW) Urine Clarity Clear (Clear) Urine pH 6.0 (5.0-8.0) Ur Specific [place] 1.011 (1.003-1.030) Urine Protein Negative (NEGATIVE) mg/dL Urine Glucose (UA) Neg (Normal) mg/dL Urine Ketones Negative (NEGATIVE) mg/dL Urine Blood Negative (NEGATIVE) Urine Nitrate Negative (NEGATIVE) Urine Bilirubin Negative (NEGATIVE) Urine Urobilinogen 0.2-1.0 (0.2-1.0) mg/dL Ur Leukocyte Esterase Neg (Negative) Diane/uL Urine RBC (Auto) 1 (0-3) /hpf Influenza Typ A,B (EIA) Negative for flu a/b (NEGATIVE) Rickettsia IgG Ab Rickettsia IgM Ab 12/06/17 12/02/17 Range/Units 04:45 04:25 WBC (4.8-10.8) K/uL RBC (4.40-5.90) Mil/uL Hgb (12.0-18.0) g/dL Hct (35.0-51.0) % MCV (80.0-94.0) fl MCH (27.0-31.0) pg MCHC (33.0-37.0) g/dL RDW (11.5-14.5) % Plt Count (130-400) K/uL Sodium 141 (132-148) mmol/l Potassium 4.3 (3.6-5.0) MMOL/L Chloride 98 (98-107) mmol/L Carbon Dioxide 29 (22-30) mmol/L Anion Gap 18 (10-20) BUN 55 H (9-20) mg/dl Creatinine 1.2 (0.8-1.5) mg/dl Est GFR ( Amer) > 60 Est GFR (Non-Af Amer) > 60 Random Glucose 130 H (75-110) mg/dL Calcium 9.3 (8.4-10.2) mg/dL Phosphorus 3.8 (2.5-4.5) mg/dl Magnesium 2.3 (1.6-2.3) MG/DL Total Bilirubin 1.5 H (0.2-1.3) mg/dl AST 27 (17-59) U/L ALT 87 H (21-72) U/L Alkaline Phosphatase 48 (38-126) U/L Total Protein 6.4 (6.3-8.2) G/DL Albumin 3.5 (3.5-5.0) g/dL Globulin 2.9 (2.2-3.9) gm/dL Albumin/Globulin Ratio 1.2 (1.0-2.1) Urine Color (YELLOW) Urine Clarity (Clear) Urine pH (5.0-8.0) Ur Specific [place] (1.003-1.030) Urine Protein (NEGATIVE) mg/dL Urine Glucose (UA) (Normal) mg/dL Urine Ketones (NEGATIVE) mg/dL Urine Blood (NEGATIVE) Urine Nitrate (NEGATIVE) Urine Bilirubin (NEGATIVE) Urine Urobilinogen (0.2-1.0) mg/dL Ur Leukocyte Esterase (Negative) Diane/uL Urine RBC (Auto) (0-3) /hpf Influenza Typ A,B (EIA) (NEGATIVE) Rickettsia IgG Ab Not detected Rickettsia IgM Ab Not detected Laboratory Results - last 24 hr 12/02/17 12/06/17 12/06/17 04:25 04:45 04:45 WBC 16.8 H RBC 5.15 Hgb 17.1 Hct 52.0 H MCV 101.1 H MCH 33.2 H MCHC 32.8 L RDW 19.3 H Plt Count 154 Sodium 141 Potassium 4.3 Chloride 98 Carbon Dioxide 29 Anion Gap 18 BUN 55 H Creatinine 1.2 Est GFR ( Amer) > 60 Est GFR (Non-Af Amer) > 60 Random Glucose 130 H Calcium 9.3 Phosphorus 3.8 Magnesium 2.3 Total Bilirubin 1.5 H AST 27 ALT 87 H Alkaline Phosphatase 48 Total Protein 6.4 Albumin 3.5 Globulin 2.9 Albumin/Globulin Ratio 1.2 Urine Color Urine Clarity Urine pH Ur Specific [place] Urine Protein Urine Glucose (UA) Urine Ketones Urine Blood Urine Nitrate Urine Bilirubin Urine Urobilinogen Ur Leukocyte Esterase Urine RBC (Auto) Influenza Typ A,B (EIA) Rickettsia IgG Ab Not detected Rickettsia IgM Ab Not detected 12/06/17 12/06/17 10:20 10:20 WBC RBC Hgb Hct MCV MCH MCHC RDW Plt Count Sodium Potassium Chloride Carbon Dioxide Anion Gap BUN Creatinine Est GFR ( Amer) Est GFR (Non-Af Amer) Random Glucose Calcium Phosphorus Magnesium Total Bilirubin AST ALT Alkaline Phosphatase Total Protein Albumin Globulin Albumin/Globulin Ratio Urine Color Yellow Urine Clarity Clear Urine pH 6.0 Ur Specific [place] 1.011 Urine Protein Negative Urine Glucose (UA) Neg Urine Ketones Negative Urine Blood Negative Urine Nitrate Negative Urine Bilirubin Negative Urine Urobilinogen 0.2-1.0 Ur Leukocyte Esterase Neg Urine RBC (Auto) 1 Influenza Typ A,B (EIA) Negative for flu a/b Rickettsia IgG Ab Rickettsia IgM Ab Critical Care Progress Note - Nutrition Nutrition: Nutrition Category Date Time Status Heart Healthy Diet [DIET] Diets 12/04/17 Breakfast Active Assessment/Plan - Assessment and Plan (Free Text) Assessment: 1.Acute on chronic CHF exacerbation Severe dilated cardiomyopathy with EF 15 % heart failure secondary to left ventricular dysfunction with multiple PVC-s, bi/trigeminy on monitor , but less frequent now, most has paced rhythm continue Sotalol ECHO done last month showed dilated cardiomyopathy with EF <15% on Lasix to 60 mg IV q12 , coreg, lisinopril . Re started aldactone good diuresis overnight, dyspnea improving Continue Na and fluid restriction 2. Bronchial Asthma stable Asmanex 2 puff q 12hrs Duoneb via nebulizer q 4hrs prn Montelukast 10mg PO HS decreased SoluMedrol to 30 mg IV daily 3. History of Thromboembolism continue Eliquis 5mg PO q 12hrs 4. Sleep Apnea on CPAP at bedtime with supplemental oxygen 5. Morbid Obesity BMI 46 6. DVt prophylaxis on eliquis
[2017-12-07 06:01] LABS: ALB/GLOB RATIO 1.3 (1.0-2.1); ALBUMIN 3.7 g/dL (3.5-5.0); ALT/SGPT 77 U/L (21-72); AST/SGOT 31 U/L (17-59); BLOOD UREA NITROGEN 50 mg/dl (9-20); CALCIUM 9.3 mg/dL (8.4-10.2); GFR AFRICAN-AMERICAN > 60; GFR NON-AFRICAN AMERICAN 57
[2017-12-07 06:03] LABS: BASO % 0.1 % (0.0-2.0); EOS # 0.1 K/uL (0.0-0.7); EOS % 0.4 % (0.0-4.0); MEAN CELL VOLUME 100.4 fl (80.0-94.0); MEAN CORPUSCULAR HEMOGLOBIN 33.1 pg (27.0-31.0); MEAN PLATELET VOLUME 10.9 fl (7.2-11.7); MONO # 2.1 K/uL (0.0-0.8); MONO % 11.3 % (0.0-10.0); NEUT # 14.3 K/uL (1.8-7.0); NEUT % 77.2 % (50.0-75.0); NRBC % 0.5 % (0.0-0.0); RBC 5.44 Mil/uL (4.40-5.90); RED CELL DISTRIBUTION WIDTH 18.8 % (11.5-14.5); WHITE BLOOD COUNT 18.5 K/uL (4.8-10.8)
--- NOTE | 2017-12-07 08:37 | CP.PCM.PN ---
Subjective - Date & Time of Evaluation Date of Evaluation: 12/07/17 Time of Evaluation: 08:35 - Subjective Subjective: Seen on morning rounds in the ICU. Seated in a bedside chair; still unable to lie down comfortably. Nausea ++ began last night, had two doses of zofran 4MG with transient improvement. Weight has decreased to 297 lbs; a decrease of >10 pounds since admission. Remains afebrile and normotensive. Labs reviewed and suggest significant volume contraction. Chest x-ray from yesterday shows marked cardiomegaly and central vascular congestion. Dependsant edema bilaterally 1+, no cyanosis. Pharynx pink, mucous membranes dry, no exudate. Neck supple, trachea midline. Breath sounds present bilaterally, slightly decreased, w/o wheezes or rhonchi. Rare basal dry to medium rales posteriorly. No audible wheezes or bronchial breath sounds. Peak flow this morning 360 LPM. Heart sounds are distant, rhythm is regular with moderate VPC's. Abdomen is obese, but much softer, NABS. Volume contraction with likely mild alkalosis/hemoconcentration. Bronchial Asthma seems to be inactive/controlled with current regimen. Chronic CHF with low EF. RICARDO. Will hold AM dose of lasix today and resume 40MG BID this afternoon. Heme consult requested for possible phlebotomy. Case discussed with cardiology and his seamer elastic band. PRN medication for nausea. Maintain BID Asmanex 220 with levalbuterol as a PRN only. Objective - Vital Signs/Intake and Output Vital Signs (last 24 hours): Temp Pulse Resp BP Pulse Ox 97.2 F L 73 18 114/65 95 12/07/17 04:00 12/07/17 06:00 12/07/17 06:00 12/07/17 06:00 12/07/17 06:00 Intake and Output: 12/06/17 12/07/17 23:59 11:59 Intake Total 300 Output Total 1400 500 Balance -1100 -500 - Medications Medications: Current Medications Allopurinol (Zyloprim) 300 mg PO DAILY [facility] Last Admin: 12/06/17 08:59 Dose: 300 mg Apixaban (Eliquis) 5 mg PO Q12 [facility] PRN Reason: Protocol Last Admin: 12/06/17 20:02 Dose: 5 mg Carvedilol (Coreg) 6.25 mg PO Q12 [facility] Last Admin: 12/06/17 20:00 Dose: 6.25 mg Docusate Sodium (Colace) 100 mg PO BID PRN PRN Reason: Constipation Last Admin: 12/02/17 17:58 Dose: 100 mg Furosemide (Lasix) 40 mg IVP BID [facility] Levalbuterol HCl (Xopenex) 0.63 mg INH Q4H PRN PRN Reason: Shortness of Breath Last Admin: 12/04/17 19:39 Dose: 0.63 mg Mexiletine HCl (Mexiletine) 150 mg PO Q8 [facility] Last Admin: 12/07/17 00:04 Dose: 150 mg Mometasone Furoate (Asmanex Twisthaler 220 Mcg) 1 puff INH BID [facility] Last Admin: 12/06/17 17:26 Dose: 1 puff Montelukast Sodium (Singulair) 10 mg PO HS [facility] Last Admin: 12/06/17 21:11 Dose: 10 mg Ondansetron HCl (Zofran Inj) 4 mg IVP Q6 PRN PRN Reason: Nausea/Vomiting Last Admin: 12/06/17 23:38 Dose: 4 mg Ondansetron HCl (Zofran Inj) 4 mg IVP Q4 PRN PRN Reason: Nausea/Vomiting Pantoprazole Sodium (Protonix Ec Tab) 40 mg PO DAILY [facility] Last Admin: 12/06/17 09:00 Dose: 40 mg Sotalol HCl (Betapace) 160 mg PO BID [facility] Last Admin: 12/06/17 17:25 Dose: 160 mg Spironolactone (Aldactone) 50 mg PO DAILY [facility] Last Admin: 12/06/17 08:57 Dose: 50 mg - Labs Labs: 12/07/17 05:15 12/07/17 05:15 PT 27.4 Seconds (9.8-13.1) H 12/01/17 10:00 INR 2.4 (0.9-1.2) H 12/01/17 10:00 APTT 38.8 Seconds (25.6-37.1) H 12/01/17 10:00 Assessment and Plan (1) CHF exacerbation Status: Acute (2) Asthma Status: Chronic (3) Dilated cardiomyopathy Status: Chronic (4) Hypoxemia Status: Chronic (5) Obstructive sleep apnea syndrome in adult Status: Chronic
[2017-12-07] MEDS: Pantoprazole 40 mg EC Tab PO SCH (08:41)
[2017-12-07] MEDS: Mometasone 220 mcg/puff-14 puff Inh INH SCH ×2 (09:21→17:21)
--- NOTE | 2017-12-07 09:23 | CP.PCM.PN ---
Subjective - Date & Time of Evaluation Date of Evaluation: 12/07/17 Time of Evaluation: 08:30 - Subjective Subjective: Still stiing in a chair, intensely nauseaus VVI paced rhythm with occ PVCs BP 100/70 mm Hg Has diuresed over last week, losing 13 lbs Has resulted in hemoconcentration (HCT 54.7%) BUN/Creatinin stable at 50/1.2 Mg% (GFR 57 ml/min) Will arrange for phlebotomy (reduced viscosity should allow better card out put) Electrolyts essentially stable Discussed with EP Objective - Vital Signs/Intake and Output Vital Signs (last 24 hours): Temp Pulse Resp BP Pulse Ox 98.1 F 72 25 H 109/60 95 12/07/17 08:00 12/07/17 09:15 12/07/17 08:00 12/07/17 09:15 12/07/17 08:00 Intake and Output: 12/07/17 12/07/17 06:59 18:59 Intake Total 300 Output Total 1900 Balance -1600 - Medications Medications: Current Medications Allopurinol (Zyloprim) 300 mg PO DAILY [facility] Last Admin: 12/07/17 09:17 Dose: 300 mg Apixaban (Eliquis) 5 mg PO Q12 [facility] PRN Reason: Protocol Last Admin: 12/07/17 08:37 Dose: 5 mg Carvedilol (Coreg) 6.25 mg PO Q12 [facility] Last Admin: 12/07/17 08:39 Dose: 6.25 mg Docusate Sodium (Colace) 100 mg PO BID PRN PRN Reason: Constipation Last Admin: 12/02/17 17:58 Dose: 100 mg Furosemide (Lasix) 40 mg IVP BID [facility] Levalbuterol HCl (Xopenex) 0.63 mg INH Q4H PRN PRN Reason: Shortness of Breath Last Admin: 12/04/17 19:39 Dose: 0.63 mg Mexiletine HCl (Mexiletine) 150 mg PO Q8 [facility] Last Admin: 12/07/17 08:37 Dose: 150 mg Mometasone Furoate (Asmanex Twisthaler 220 Mcg) 1 puff INH BID [facility] Last Admin: 12/06/17 17:26 Dose: 1 puff Montelukast Sodium (Singulair) 10 mg PO HS [facility] Last Admin: 12/06/17 21:11 Dose: 10 mg Ondansetron HCl (Zofran Inj) 4 mg IVP Q6 PRN PRN Reason: Nausea/Vomiting Last Admin: 12/06/17 23:38 Dose: 4 mg Ondansetron HCl (Zofran Inj) 4 mg IVP Q4 PRN PRN Reason: Nausea/Vomiting Pantoprazole Sodium (Protonix Ec Tab) 40 mg PO DAILY [facility] Last Admin: 12/07/17 08:41 Dose: 40 mg Sotalol HCl (Betapace) 160 mg PO BID [facility] Last Admin: 12/07/17 09:15 Dose: 160 mg Spironolactone (Aldactone) 50 mg PO DAILY [facility] Last Admin: 12/06/17 08:57 Dose: 50 mg - Labs Labs: 12/07/17 05:15 12/07/17 05:15 PT 27.4 Seconds (9.8-13.1) H 12/01/17 10:00 INR 2.4 (0.9-1.2) H 12/01/17 10:00 APTT 38.8 Seconds (25.6-37.1) H 12/01/17 10:00
--- NOTE | 2017-12-07 11:23 | CP.PCM.PN ---
Subjective - Date & Time of Evaluation Date of Evaluation: 12/07/17 Time of Evaluation: 11:17 - Subjective Subjective: Pt was admitted for CHF not responding to conventional therapy. His hgb was 54.4 and he has a h/o polycythemia. A therapeutic phlebotomy was done. Procedure was started at 10.15 and finished at 10.45 am. He was given a replacement of 250 cc of .9nss. He has severe CHF so only a small amount of volume was replaced. Pt needed 2 sticks to remove 549 cc of blood . He tolerated it well. Objective - Vital Signs/Intake and Output Vital Signs (last 24 hours): Temp Pulse Resp BP Pulse Ox 98.1 F 97 H 22 91/53 L 97 12/07/17 08:00 12/07/17 11:11 12/07/17 11:11 12/07/17 11:11 12/07/17 11:11 Intake and Output: 12/07/17 12/07/17 06:59 18:59 Intake Total 300 Output Total 1900 Balance -1600 - Medications Medications: Current Medications Allopurinol (Zyloprim) 300 mg PO DAILY [facility] Last Admin: 12/07/17 09:17 Dose: 300 mg Apixaban (Eliquis) 5 mg PO Q12 [facility] PRN Reason: Protocol Last Admin: 12/07/17 08:37 Dose: 5 mg Carvedilol (Coreg) 6.25 mg PO Q12 [facility] Last Admin: 12/07/17 08:39 Dose: 6.25 mg Docusate Sodium (Colace) 100 mg PO BID PRN PRN Reason: Constipation Last Admin: 12/02/17 17:58 Dose: 100 mg Furosemide (Lasix) 40 mg IVP BID [facility] Levalbuterol HCl (Xopenex) 0.63 mg INH Q4H PRN PRN Reason: Shortness of Breath Last Admin: 12/04/17 19:39 Dose: 0.63 mg Mexiletine HCl (Mexiletine) 150 mg PO Q8 [facility] Last Admin: 12/07/17 08:37 Dose: 150 mg Mometasone Furoate (Asmanex Twisthaler 220 Mcg) 1 puff INH BID [facility] Last Admin: 12/07/17 09:21 Dose: 1 puff Montelukast Sodium (Singulair) 10 mg PO HS [facility] Last Admin: 12/06/17 21:11 Dose: 10 mg Ondansetron HCl (Zofran Inj) 4 mg IVP Q6 PRN PRN Reason: Nausea/Vomiting Last Admin: 12/06/17 23:38 Dose: 4 mg Ondansetron HCl (Zofran Inj) 4 mg IVP Q4 PRN PRN Reason: Nausea/Vomiting Last Admin: 12/07/17 10:59 Dose: 4 mg Pantoprazole Sodium (Protonix Ec Tab) 40 mg PO DAILY [facility] Last Admin: 12/07/17 08:41 Dose: 40 mg Sotalol HCl (Betapace) 160 mg PO BID [facility] Last Admin: 12/07/17 09:15 Dose: 160 mg Spironolactone (Aldactone) 50 mg PO DAILY [facility] Last Admin: 12/07/17 09:21 Dose: 50 mg - Labs Labs: 12/07/17 05:15 12/07/17 05:15 PT 27.4 Seconds (9.8-13.1) H 12/01/17 10:00 INR 2.4 (0.9-1.2) H 12/01/17 10:00 APTT 38.8 Seconds (25.6-37.1) H 12/01/17 10:00 Therapeutic Phlebotomy Record - Patient History Patient's Diagnosis: polycythemia ,CHF Recent Lab Results: Laboratory Last Values WBC 18.5 K/uL (4.8-10.8) H 12/07/17 05:15 RBC 5.44 Mil/uL (4.40-5.90) 12/07/17 05:15 Hgb 18.0 g/dL (12.0-18.0) 12/07/17 05:15 Hct 54.7 % (35.0-51.0) H 12/07/17 05:15 MCV 100.4 fl (80.0-94.0) H 12/07/17 05:15 MCH 33.1 pg (27.0-31.0) H 12/07/17 05:15 MCHC 33.0 g/dL (33.0-37.0) 12/07/17 05:15 RDW 18.8 % (11.5-14.5) H 12/07/17 05:15 Plt Count 144 K/uL (130-400) 12/07/17 05:15 MPV 10.9 fl (7.2-11.7) 12/07/17 05:15 Neut % (Auto) 77.2 % (50.0-75.0) H 12/07/17 05:15 Lymph % (Auto) 11.0 % (20.0-40.0) L 12/07/17 05:15 [place] % (Auto) 11.3 % (0.0-10.0) H 12/07/17 05:15 Eos % (Auto) 0.4 % (0.0-4.0) 12/07/17 05:15 Baso % (Auto) 0.1 % (0.0-2.0) 12/07/17 05:15 Neut # (Auto) 14.3 K/uL (1.8-7.0) H 12/07/17 05:15 Lymph # (Auto) 2.0 K/uL (1.0-4.3) 12/07/17 05:15 [place] # (Auto) 2.1 K/uL (0.0-0.8) H 12/07/17 05:15 Eos # (Auto) 0.1 K/uL (0.0-0.7) 12/07/17 05:15 Baso # (Auto) 0.0 K/uL (0.0-0.2) 12/07/17 05:15 Neutrophils % (Manual) 87 % (42-75) H 12/02/17 04:25 Band Neutrophils % 1 % (0-2) 12/02/17 04:25 Lymphocytes % (Manual) 9 % (20-50) L 12/02/17 04:25 Monocytes % (Manual) 3 % (0-10) 12/02/17 04:25 Platelet Estimate Normal (NORMAL) 12/02/17 04:25 Large Platelets Present 12/02/17 04:25 Anisocytosis (manual) Slight 12/02/17 04:25 Macrocytosis (manual) Slight 12/02/17 04:25 PT 27.4 Seconds (9.8-13.1) H 12/01/17 10:00 INR 2.4 (0.9-1.2) H 12/01/17 10:00 APTT 38.8 Seconds (25.6-37.1) H 12/01/17 10:00 pCO2 21 mm/Hg (35-45) L 12/01/17 09:51 pO2 105 mm/Hg (80-100) H 12/01/17 09:51 HCO3 24.7 mmol/L (21-28) 12/01/17 09:51 ABG pH 7.57 (7.35-7.45) H 12/01/17 09:51 ABG Total CO2 19.8 mmol/L (22-28) L 12/01/17 09:51 ABG O2 Saturation 100.0 % (95-98) H 12/01/17 09:51 ABG Base Excess -0.2 mmol/L (-2.0-3.0) 12/01/17 09:51 Tj Test Yes 12/01/17 09:51 ABG Potassium 4.2 mmol/L (3.6-5.2) 12/01/17 09:51 A-a O2 Difference 68.0 mm/Hg 12/01/17 09:51 Sodium 134.0 mmol/L (132-148) 12/01/17 09:51 Chloride 105.0 mmol/L (98-107) 12/01/17 09:51 Glucose 134 mg/dL (75-110) H 12/01/17 09:51 Lactate 1.9 mmol/L (0.7-2.1) 12/01/17 09:51 Vent Mode Nc 12/01/17 09:51 FiO2 28.0 % 12/01/17 09:51 Sodium 138 mmol/l (132-148) 12/07/17 05:15 Potassium 4.4 MMOL/L (3.6-5.0) 12/07/17 05:15 Chloride 96 mmol/L (98-107) L 12/07/17 05:15 Carbon Dioxide 32 mmol/L (22-30) H 12/07/17 05:15 Anion Gap 14 (10-20) 12/07/17 05:15 BUN 50 mg/dl (9-20) H 12/07/17 05:15 Creatinine 1.3 mg/dl (0.8-1.5) 12/07/17 05:15 Est GFR ( Amer) > 60 12/07/17 05:15 Est GFR (Non-Af Amer) 57 12/07/17 05:15 POC Glucose (mg/dL) 118 mg/dL (65-110) H 12/06/17 23:19 Random Glucose 112 mg/dL (75-110) H 12/07/17 05:15 Calcium 9.3 mg/dL (8.4-10.2) 12/07/17 05:15 Phosphorus 3.8 mg/dl (2.5-4.5) 12/06/17 04:45 Magnesium 2.3 MG/DL (1.6-2.3) 12/06/17 04:45 Total Bilirubin 1.9 mg/dl (0.2-1.3) H 12/07/17 05:15 AST 31 U/L (17-59) 12/07/17 05:15 ALT 77 U/L (21-72) H 12/07/17 05:15 Alkaline Phosphatase 51 U/L (38-126) 12/07/17 05:15 Troponin I 0.0210 ng/mL (0.00-0.120) 12/02/17 04:25 NT-Pro-B Natriuret Pep 85807 pg/ml (0-900) H 12/01/17 10:00 Total Protein 6.6 G/DL (6.3-8.2) 12/07/17 05:15 Albumin 3.7 g/dL (3.5-5.0) 12/07/17 05:15 Globulin 2.9 gm/dL (2.2-3.9) 12/07/17 05:15 Albumin/Globulin Ratio 1.3 (1.0-2.1) 12/07/17 05:15 Prostate Specific Ag 0.577 ng/ML (0.00-4.0) 12/04/17 04:50 Procalcitonin 0.06 NG/ML (0.19-0.49) L 12/06/17 08:42 Arterial Blood Potassium 4.2 mmol/L (3.6-5.2) 12/01/17 09:51 Urine Color Yellow (YELLOW) 12/06/17 10:20 Urine Clarity Clear (Clear) 12/06/17 10:20 Urine pH 6.0 (5.0-8.0) 12/06/17 10:20 Ur Specific [place] 1.011 (1.003-1.030) 12/06/17 10:20 Urine Protein Negative mg/dL (NEGATIVE) 12/06/17 10:20 Urine Glucose (UA) Neg mg/dL (Normal) 12/06/17 10:20 Urine Ketones Negative mg/dL (NEGATIVE) 12/06/17 10:20 Urine Blood Negative (NEGATIVE) 12/06/17 10:20 Urine Nitrate Negative (NEGATIVE) 12/06/17 10:20 Urine Bilirubin Negative (NEGATIVE) 12/06/17 10:20 Urine Urobilinogen 0.2-1.0 mg/dL (0.2-1.0) 12/06/17 10:20 Ur Leukocyte Esterase Neg [place]/uL (Negative) 12/06/17 10:20 Urine RBC (Auto) 1 /hpf (0-3) 12/06/17 10:20 Lyme IgG 18 kDa Band Nonreactive 12/02/17 04:25 Lyme IgG 23 kDa Band Nonreactive 12/02/17 04:25 Lyme IgG 28 kDa Band Nonreactive 12/02/17 04:25 Lyme IgG 30 kDa Band Nonreactive 12/02/17 04:25 Lyme IgG 39 kDa Band Nonreactive 12/02/17 04:25 Lyme IgG 41 kDa Band Nonreactive 12/02/17 04:25 Lyme IgG 45 kDa Band Nonreactive 12/02/17 04:25 Lyme IgG 58 kDa Band Nonreactive 12/02/17 04:25 Lyme IgG 66 kDa Band Nonreactive 12/02/17 04:25 Lyme IgG 93 kDa Band Nonreactive 12/02/17 04:25 Lyme IgG W Blot Interp Negative (Negative) 12/02/17 04:25 Lyme IgM 23 kDa Band Nonreactive 12/02/17 04:25 Lyme IgM 39 kDa Band Nonreactive 12/02/17 04:25 Lyme IgM 41 kDa Band Nonreactive 12/02/17 04:25 Lyme IgM W Blot Interp Negative (Negative) 12/02/17 04:25 Influenza Typ A,B (EIA) Negative for flu a/b (NEGATIVE) 12/06/17 10:20 Blood Parasites Smear Negative (NEGATIVE) 12/02/17 09:09 Rickettsia IgG Titer (()) 12/02/17 04:25 Rickettsia IgG Ab Not detected 12/02/17 04:25 Rickettsia IgM Titer (()) 12/02/17 04:25 Rickettsia IgM Ab Not detected 12/02/17 04:25 Bld Parasites Quantity Cancelled 12/02/17 04:25 Blood Parasites ID Cancelled 12/02/17 04:25 - Validation Physician Ordering Procedure: Kelsi Saunders MD Order on Chart: Yes Documentation of Consent to Treat: Yes Volume of Whole Blood to be Removed (in mL): 500 - Procedure Volume of Whole Blood Actually Removed (in mL): 549 MD Notified for Volume >100ml of Ordered Volume: Yes Runner Worker Done on Scale: Yes Person Performing Procedure: Napoleon Palma RN
--- NOTE | 2017-12-07 15:02 | CP.CCUPN ---
CCU Subjective - Physician Review Events Since Last Encounter (Free Text): 12/07/17 17:29 The patient was Seen and examined by me at the bedside, Medical records reviewed and Management issues were discussed and formulated with the house staff. 57 Y/O M with PMHx of HTN, A-Fib on chronic AC, AICD, H/O DVT and PTE and dilated cardiomyopathy with EF 15 % Currently managed for Acute CHF exacerbation Alert and oriented, no sob at rest but gets SOP with mild exertion, Underwent therapeutic phlebotomy today CCU Objective - Vital Signs / Intake & Output Vital Signs (Last 4 hours): Vital Signs Temp Pulse Resp BP Pulse Ox 12/07/17 14:00 85 23 105/71 95 12/07/17 12:00 97.6 F 78 34 H 92/57 L 97 12/07/17 11:11 97 H 22 91/53 L 97 Intake and Output (Last 8hrs): Intake & Output 12/07/17 12/07/17 12/07/17 06:59 14:59 22:59 Intake Total 300 Output Total 1900 Balance -1600 Weight 297 lb 12.8 oz Intake: Oral 300 Output: Urine 1900 Urine, Voided 1900 Other: # Voids Urine, Voided 3 # Bowel Movements 1 - Physical Exam Head: Positive for: Atraumatic, Normocephalic Pupils: Positive for: PERRL Extroacular Muscles: Positive for: EOMI Conjunctiva: Positive for: Normal Mouth: Positive for: Moist Mucous Membranes Respiratory/Chest: Positive for: Clear to Auscultation, Good Air Exchange. Negative for: Respiratory Distress, Accessory Muscle Use Cardiovascular: Positive for: Regular Rate and Rhythm, Peripheal Pulses Present. Negative for: Murmurs, Irregular Rhythm Abdomen: Positive for: Normal Bowel Sounds. Negative for: Tenderness, Distention Neurological: Positive for: GCS=15, CN II-XII Intact, Speech Normal, Motor Func Grossly Intact, Normal Sensory Function Psychiatric: Positive for: Alert, Oriented x 3 - Medications Active Medications: Active Medications Generic Name Dose Route Start Last Admin Trade Name Freq PRN Reason Stop Dose Admin Allopurinol 300 mg 12/02/17 09:00 12/07/17 09:17 Zyloprim PO 300 mg DAILY [facility] Administration Apixaban 5 mg 12/01/17 21:00 12/07/17 08:37 Eliquis PO 5 mg Q12 [facility] Administration Protocol Carvedilol 6.25 mg 12/01/17 21:00 12/07/17 08:39 Coreg PO 6.25 mg Q12 [facility] Administration Docusate Sodium 100 mg 12/01/17 13:53 12/02/17 17:58 Colace PO 100 mg BID PRN Administration Constipation Furosemide 40 mg 12/07/17 17:00 Lasix IVP BID [facility] Levalbuterol HCl 0.63 mg 12/01/17 17:17 12/04/17 19:39 Xopenex INH 0.63 mg Q4H PRN Administration Shortness of Breath Mexiletine HCl 150 mg 12/01/17 17:00 12/07/17 08:37 Mexiletine PO 150 mg Q8 [facility] Administration Mometasone Furoate 1 puff 12/05/17 17:00 12/07/17 09:21 Asmanex Twisthaler 220 Mcg INH 1 puff BID [facility] Administration Montelukast Sodium 10 mg 12/01/17 22:00 12/06/17 21:11 Singulair PO 10 mg HS [facility] Administration Ondansetron HCl 4 mg 12/06/17 23:19 12/06/17 23:38 Zofran Inj IVP 4 mg Q6 PRN Administration Nausea/Vomiting Ondansetron HCl 4 mg 12/07/17 08:32 12/07/17 10:59 Zofran Inj IVP 4 mg Q4 PRN Administration Nausea/Vomiting Pantoprazole Sodium 40 mg 12/02/17 09:00 12/07/17 08:41 Protonix Ec Tab PO 40 mg DAILY [facility] Administration Sotalol HCl 160 mg 12/01/17 17:00 12/07/17 09:15 Betapace PO 160 mg BID [facility] Administration Spironolactone 50 mg 12/04/17 09:30 12/07/17 09:21 Aldactone PO 50 mg DAILY [facility] Administration - Patient Studies Lab Studies: Microbiology Studies 12/06/17 10:20 Urine Culture - Final Urine No Growth (<1,000 CFU/ML) Lab Studies 12/07/17 12/07/17 12/06/17 Range/Units 05:15 05:15 23:19 WBC 18.5 H (4.8-10.8) K/uL RBC 5.44 (4.40-5.90) Mil/uL Hgb 18.0 (12.0-18.0) g/dL Hct 54.7 H (35.0-51.0) % MCV 100.4 H (80.0-94.0) fl MCH 33.1 H (27.0-31.0) pg MCHC 33.0 (33.0-37.0) g/dL RDW 18.8 H (11.5-14.5) % Plt Count 144 (130-400) K/uL MPV 10.9 (7.2-11.7) fl Neut % (Auto) 77.2 H (50.0-75.0) % Lymph % (Auto) 11.0 L (20.0-40.0) % [place] % (Auto) 11.3 H (0.0-10.0) % Eos % (Auto) 0.4 (0.0-4.0) % Baso % (Auto) 0.1 (0.0-2.0) % Neut # (Auto) 14.3 H (1.8-7.0) K/uL Lymph # (Auto) 2.0 (1.0-4.3) K/uL [place] # (Auto) 2.1 H (0.0-0.8) K/uL Eos # (Auto) 0.1 (0.0-0.7) K/uL Baso # (Auto) 0.0 (0.0-0.2) K/uL Sodium 138 (132-148) mmol/l Potassium 4.4 (3.6-5.0) MMOL/L Chloride 96 L (98-107) mmol/L Carbon Dioxide 32 H (22-30) mmol/L Anion Gap 14 (10-20) BUN 50 H (9-20) mg/dl Creatinine 1.3 (0.8-1.5) mg/dl Est GFR ( Amer) > 60 Est GFR (Non-Af Amer) 57 POC Glucose (mg/dL) 118 H (65-110) mg/dL Random Glucose 112 H (75-110) mg/dL Calcium 9.3 (8.4-10.2) mg/dL Total Bilirubin 1.9 H (0.2-1.3) mg/dl AST 31 (17-59) U/L ALT 77 H (21-72) U/L Alkaline Phosphatase 51 (38-126) U/L Total Protein 6.6 (6.3-8.2) G/DL Albumin 3.7 (3.5-5.0) g/dL Globulin 2.9 (2.2-3.9) gm/dL Albumin/Globulin Ratio 1.3 (1.0-2.1) Procalcitonin (0.19-0.49) NG/ML Rickettsia IgG Titer (()) Rickettsia IgM Titer (()) 12/06/17 12/02/17 Range/Units 08:42 04:25 WBC (4.8-10.8) K/uL RBC (4.40-5.90) Mil/uL Hgb (12.0-18.0) g/dL Hct (35.0-51.0) % MCV (80.0-94.0) fl MCH (27.0-31.0) pg MCHC (33.0-37.0) g/dL RDW (11.5-14.5) % Plt Count (130-400) K/uL MPV (7.2-11.7) fl Neut % (Auto) (50.0-75.0) % Lymph % (Auto) (20.0-40.0) % [place] % (Auto) (0.0-10.0) % Eos % (Auto) (0.0-4.0) % Baso % (Auto) (0.0-2.0) % Neut # (Auto) (1.8-7.0) K/uL Lymph # (Auto) (1.0-4.3) K/uL [place] # (Auto) (0.0-0.8) K/uL Eos # (Auto) (0.0-0.7) K/uL Baso # (Auto) (0.0-0.2) K/uL Sodium (132-148) mmol/l Potassium (3.6-5.0) MMOL/L Chloride (98-107) mmol/L Carbon Dioxide (22-30) mmol/L Anion Gap (10-20) BUN (9-20) mg/dl Creatinine (0.8-1.5) mg/dl Est GFR ( Amer) Est GFR (Non-Af Amer) POC Glucose (mg/dL) (65-110) mg/dL Random Glucose (75-110) mg/dL Calcium (8.4-10.2) mg/dL Total Bilirubin (0.2-1.3) mg/dl AST (17-59) U/L ALT (21-72) U/L Alkaline Phosphatase (38-126) U/L Total Protein (6.3-8.2) G/DL Albumin (3.5-5.0) g/dL Globulin (2.2-3.9) gm/dL Albumin/Globulin Ratio (1.0-2.1) Procalcitonin 0.06 L (0.19-0.49) NG/ML Rickettsia IgG Titer (()) Rickettsia IgM Titer (()) Laboratory Results - last 24 hr 12/02/17 12/06/17 12/06/17 04:25 08:42 23:19 WBC RBC Hgb Hct MCV MCH MCHC RDW Plt Count MPV Neut % (Auto) Lymph % (Auto) [place] % (Auto) Eos % (Auto) Baso % (Auto) Neut # (Auto) Lymph # (Auto) [place] # (Auto) Eos # (Auto) Baso # (Auto) Sodium Potassium Chloride Carbon Dioxide Anion Gap BUN Creatinine Est GFR ( Amer) Est GFR (Non-Af Amer) POC Glucose (mg/dL) 118 H Random Glucose Calcium Total Bilirubin AST ALT Alkaline Phosphatase Total Protein Albumin Globulin Albumin/Globulin Ratio Procalcitonin 0.06 L Rickettsia IgG Titer Rickettsia IgM Titer 12/07/17 12/07/17 05:15 05:15 WBC 18.5 H RBC 5.44 Hgb 18.0 Hct 54.7 H MCV 100.4 H MCH 33.1 H MCHC 33.0 RDW 18.8 H Plt Count 144 MPV 10.9 Neut % (Auto) 77.2 H Lymph % (Auto) 11.0 L [place] % (Auto) 11.3 H Eos % (Auto) 0.4 Baso % (Auto) 0.1 Neut # (Auto) 14.3 H Lymph # (Auto) 2.0 [place] # (Auto) 2.1 H Eos # (Auto) 0.1 Baso # (Auto) 0.0 Sodium 138 Potassium 4.4 Chloride 96 L Carbon Dioxide 32 H Anion Gap 14 BUN 50 H Creatinine 1.3 Est GFR ( Amer) > 60 Est GFR (Non-Af Amer) 57 POC Glucose (mg/dL) Random Glucose 112 H Calcium 9.3 Total Bilirubin 1.9 H AST 31 ALT 77 H Alkaline Phosphatase 51 Total Protein 6.6 Albumin 3.7 Globulin 2.9 Albumin/Globulin Ratio 1.3 Procalcitonin Rickettsia IgG Titer Rickettsia IgM Titer Review of Systems - Cardiovascular Cardiovascular: absent: Chest Pain, Chest Pain at Rest, Chest Pain with Activity , Claudication, Diaphoresis - Respiratory Respiratory: Dyspnea, Dyspnea on Exertion. absent: Hemoptysis, Wheezing, Snoring - Gastrointestinal Gastrointestinal: absent: Abdominal Pain, Hematemesis, Melena, Nausea, Vomiting Critical Care Progress Note - Extremities/Vascular Does the Patient have a Central Venous Catheter?: No Does the Patient need a Central Venous Catheter?: No Does the Patient have a Hernandez Catheter?: No Does the Patient need a Hernandez Catheter?: No - Prophylaxis GI Prophylaxis GI: PPI - Nutrition Nutrition: Nutrition Category Date Time Status Heart Healthy Diet [DIET] Diets 12/04/17 Breakfast Active Assessment/Plan (1) CHF exacerbation Current Visit: Yes Status: Acute Priority: High Comment: CHF exacerbation, secondary to left ventricular dysfunction H/O non-ischemic cardiomyopathy Pt today in [place] ECHO done last month showed dilated cardiomyopathy with EF <15% Continue Sotalol Continue Lasix to 60 mg IV q12 , coreg, lisinopril and aldactone (2) Dilated cardiomyopathy Current Visit: Yes Status: Chronic Priority: High (3) Hypoxemic polycythemia Current Visit: Yes Status: Chronic Comment: Underwent therapeutic phlebotomy today (4) Asthma Current Visit: Yes Status: Chronic Priority: High Comment: Controlled, Continue Asmanex, Montelukast and SoluMedrol to 30 mg IV daily Albuterol/Ipratropium INH RQ4 PRN (5) Obstructive sleep apnea syndrome in adult Current Visit: Yes Status: Chronic Priority: High Comment: Nocturnal CPAP
--- NOTE | 2017-12-07 16:05 | CP.PCM.PN ---
Subjective - Date & Time of Evaluation Date of Evaluation: 12/07/17 Time of Evaluation: 14:00 - Subjective Subjective: Patient was seen and examined . Morbidly obese male sitting in chair on 2 L O2 via NC saturating 94-99 %. status post phlebotomy today due to Hct 54 with removal 549 ml blood. Feeling somewhat tired , drained and complaining of palpitations. With multiple PVC-s and bigeminy on tele monitor , HR 65 still with dyspnea at rest but improved has been diuresing well almost 12 lbs fluid BUN / Cr 50/1.3 today Still with 2 + edema to bilateral LE Objective - Vital Signs/Intake and Output Vital Signs (last 24 hours): Temp Pulse Resp BP Pulse Ox 97.6 F 85 23 105/71 95 12/07/17 12:00 12/07/17 14:00 12/07/17 14:00 12/07/17 14:00 12/07/17 14:00 Intake and Output: 12/07/17 12/07/17 06:59 18:59 Intake Total 300 Output Total 1900 Balance -1600 - Medications Medications: Current Medications Allopurinol (Zyloprim) 300 mg PO DAILY [facility] Last Admin: 12/07/17 09:17 Dose: 300 mg Apixaban (Eliquis) 5 mg PO Q12 [facility] PRN Reason: Protocol Last Admin: 12/07/17 08:37 Dose: 5 mg Carvedilol (Coreg) 6.25 mg PO Q12 [facility] Last Admin: 12/07/17 08:39 Dose: 6.25 mg Docusate Sodium (Colace) 100 mg PO BID PRN PRN Reason: Constipation Last Admin: 12/02/17 17:58 Dose: 100 mg Furosemide (Lasix) 40 mg IVP BID [facility] Levalbuterol HCl (Xopenex) 0.63 mg INH Q4H PRN PRN Reason: Shortness of Breath Last Admin: 12/04/17 19:39 Dose: 0.63 mg Mexiletine HCl (Mexiletine) 150 mg PO Q8 [facility] Last Admin: 12/07/17 08:37 Dose: 150 mg Mometasone Furoate (Asmanex Twisthaler 220 Mcg) 1 puff INH BID [facility] Last Admin: 12/07/17 09:21 Dose: 1 puff Montelukast Sodium (Singulair) 10 mg PO HS [facility] Last Admin: 12/06/17 21:11 Dose: 10 mg Ondansetron HCl (Zofran Inj) 4 mg IVP Q6 PRN PRN Reason: Nausea/Vomiting Last Admin: 12/06/17 23:38 Dose: 4 mg Ondansetron HCl (Zofran Inj) 4 mg IVP Q4 PRN PRN Reason: Nausea/Vomiting Last Admin: 12/07/17 10:59 Dose: 4 mg Pantoprazole Sodium (Protonix Ec Tab) 40 mg PO DAILY [facility] Last Admin: 12/07/17 08:41 Dose: 40 mg Sotalol HCl (Betapace) 160 mg PO BID [facility] Last Admin: 12/07/17 09:15 Dose: 160 mg Spironolactone (Aldactone) 50 mg PO DAILY [facility] Last Admin: 12/07/17 09:21 Dose: 50 mg - Labs Labs: 12/07/17 05:15 12/07/17 05:15 PT 27.4 Seconds (9.8-13.1) H 12/01/17 10:00 INR 2.4 (0.9-1.2) H 12/01/17 10:00 APTT 38.8 Seconds (25.6-37.1) H 12/01/17 10:00 - Constitutional Appears: Non-toxic, Chronically Ill, Other (morbidly obese ) - Head Exam Head Exam: ATRAUMATIC, NORMOCEPHALIC - Eye Exam Eye Exam: EOMI, PERRL Pupil Exam: NORMAL ACCOMODATION - ENT Exam ENT Exam: Mucous Membranes Moist, Normal Exam - Neck Exam Neck Exam: Full ROM, Normal Inspection Additional comments: short , thick neck - Respiratory Exam Respiratory Exam: Clear to Ausculation Bilateral, NORMAL BREATHING PATTERN. absent: Rales, Rhonchi, Wheezes - Cardiovascular Exam Cardiovascular Exam: REGULAR RHYTHM, +S1, +S2. absent: JVD - GI/Abdominal Exam GI & Abdominal Exam: Soft, Normal Bowel Sounds. absent: Distended, Guarding, Tenderness, Rebound - Rectal Exam Rectal Exam: Deferred - Extremities Exam Extremities Exam: Pedal Edema (2 + bilaterally ). absent: Calf Tenderness - Back Exam Back Exam: NORMAL INSPECTION - Neurological Exam Neurological Exam: Alert, Awake, Oriented x3 - Psychiatric Exam Psychiatric exam: Normal Affect - Skin Skin Exam: Dry, Normal Color, Warm Assessment and Plan - Assessment and Plan (Free Text) Assessment: 57 yo male with history of Morbid Obesity, Asthma, severely dilated cardiomyopathy with EF 15 % , s/p AICD, HTN and previous DVT/PE came in because of progressively worsening SOB since 3 weeks ago. Claimed that condition started after coming back from [facility] about 3 months ago. Patient admitted with CHF exacerbation , cardiology consulted . 12/04 -with episodes of multiple PVC-s on monitor . Transferred to ICU for close monitoring At present still in ICU with multiple PVC-s, dyspnea and edema of LE. Has diuresed well almost 13 lbs s/p phlebotomy today with removal 549 ml blood 1.Acute on chronic CHF exacerbation Severe dilated cardiomyopathy with EF 15 % heart failure secondary to left ventricular dysfunction with multiple PVC-s, bi/trigeminy on monitor overnight as well Continue ICU monitoring Monitor electrolytes closely k , MG cardiology on board following Switched to Lasix 40 mg IV bid from 60 mg IV BID today ( BUN/Cr 50/1.3) continue Sotalol ECHO done last month showed dilated cardiomyopathy with EF <15% Continue coreg, aldactone Continue Na and fluid restriction s/p therapeutic Phlebotomy today to reduce hyperviscosity and improve oxygenation ( Hct 54 ). hemamtology consulted . patient has history of polycytemia Vera ? 2. Bronchial Asthma stable pulmonary consulted Asmanex 2 puff q 12hrs Duoneb via nebulizer q 4hrs prn Montelukast 10mg PO HS Steroids tapered off 3. History of Thromboembolism continue Eliquis 5mg PO q 12hrs 4. Sleep Apnea on CPAP at bedtime with supplemental oxygen 5. Morbid Obesity BMI 46 6. History of Polycytemia Vera Hct 54 today Hematology consulted s/p Therapeutic Phlebotomy 7. Azotemia diuretic induced BUN / Cr 50/1.3 Decrease lasix from 60 Mg BID to 40 mg BID 8. Leukocytosis Procalcitonin is low <0.06 No source of infection identified Most likely secondary to Steroids and reactive Steroid discontinued monitor for now 9. DVt prophylaxis on eliquis
[2017-12-07 17:58] LABS: ADENOVIRUS AB <1:8 (<1:8)
[2017-12-08 05:49] LABS: ALB/GLOB RATIO 1.2 (1.0-2.1); ALBUMIN 3.2 g/dL (3.5-5.0); ALT/SGPT 65 U/L (21-72); AST/SGOT 24 U/L (17-59); BLOOD UREA NITROGEN 40 mg/dl (9-20); GFR AFRICAN-AMERICAN > 60; GFR NON-AFRICAN AMERICAN > 60
[2017-12-08 06:08] LABS: HEMOGLOBIN 16.5 g/dL (12.0-18.0); MEAN CORPUSCULAR HEMOGLOBIN 33.2 pg (27.0-31.0); MEAN CORPUSCULAR HGB CONC 33.2 g/dL (33.0-37.0); RBC 4.98 Mil/uL (4.40-5.90); RED CELL DISTRIBUTION WIDTH 18.8 % (11.5-14.5); WHITE BLOOD COUNT 14.7 K/uL (4.8-10.8)
[2017-12-08] MEDS: Mometasone 220 mcg/puff-14 puff Inh INH SCH ×2 (08:29→16:25)
[2017-12-08] MEDS: Pantoprazole 40 mg EC Tab PO SCH (08:31)
--- NOTE | 2017-12-08 09:00 | CP.PCM.PN ---
Subjective - Date & Time of Evaluation Date of Evaluation: 12/08/17 Time of Evaluation: 08:45 - Subjective Subjective: Had phlebotomy yesterday Slept for the first time in bed since admission Dyspnoea has abated somewhat (can carry on conversation) A Fib with VVI paced rhythm (occ PVCs, nonrepetitive) BP 124/70 mm Hg Pulseox at 97 % on N/C O2 supplement HCT 49.7%, BUN/Creatinin improved Electrolytes stable Will continue present Rx Objective - Vital Signs/Intake and Output Vital Signs (last 24 hours): Temp Pulse Resp BP Pulse Ox 98.1 F 65 29 H 94/52 L 98 12/08/17 08:34 12/08/17 08:34 12/08/17 08:34 12/08/17 08:34 12/08/17 08:34 Intake and Output: 12/08/17 12/08/17 06:59 18:59 Output Total 500 Balance -500 - Medications Medications: Current Medications Allopurinol (Zyloprim) 300 mg PO DAILY [facility] Last Admin: 12/08/17 08:31 Dose: 300 mg Apixaban (Eliquis) 5 mg PO Q12 [facility] PRN Reason: Protocol Last Admin: 12/08/17 08:30 Dose: 5 mg Carvedilol (Coreg) 6.25 mg PO Q12 [facility] Last Admin: 12/08/17 08:30 Dose: 6.25 mg Docusate Sodium (Colace) 100 mg PO BID PRN PRN Reason: Constipation Last Admin: 12/02/17 17:58 Dose: 100 mg Furosemide (Lasix) 40 mg IVP BID [facility] Last Admin: 12/08/17 08:30 Dose: 40 mg Levalbuterol HCl (Xopenex) 0.63 mg INH Q4H PRN PRN Reason: Shortness of Breath Last Admin: 12/04/17 19:39 Dose: 0.63 mg Mexiletine HCl (Mexiletine) 150 mg PO Q8 [facility] Last Admin: 12/08/17 08:31 Dose: 150 mg Mometasone Furoate (Asmanex Twisthaler 220 Mcg) 1 puff INH BID [facility] Last Admin: 12/08/17 08:29 Dose: 1 puff Montelukast Sodium (Singulair) 10 mg PO HS [facility] Last Admin: 12/07/17 21:10 Dose: 10 mg Ondansetron HCl (Zofran Inj) 4 mg IVP Q4 PRN PRN Reason: Nausea/Vomiting Last Admin: 12/07/17 21:35 Dose: 4 mg Pantoprazole Sodium (Protonix Ec Tab) 40 mg PO DAILY [facility] Last Admin: 12/08/17 08:31 Dose: 40 mg Sotalol HCl (Betapace) 160 mg PO BID [facility] Last Admin: 12/08/17 08:29 Dose: 160 mg Spironolactone (Aldactone) 50 mg PO DAILY [facility] Last Admin: 12/08/17 08:29 Dose: 50 mg - Labs Labs: 12/08/17 04:20 12/08/17 04:20 PT 27.4 Seconds (9.8-13.1) H 12/01/17 10:00 INR 2.4 (0.9-1.2) H 12/01/17 10:00 APTT 38.8 Seconds (25.6-37.1) H 12/01/17 10:00
--- NOTE | 2017-12-08 09:16 | CP.PCM.PN ---
Subjective - Date & Time of Evaluation Date of Evaluation: 12/08/17 Time of Evaluation: 09:11 - Subjective Subjective: Appears more comfortable this morning. Seated on EOB eating breakfast. He claims he was able to sleep last night, but could not use his CPAP. Vital signs are stable, ventricular ectopy seems reduced. SpO2 95%+ with nasal canula 2 LPM. Leukocytosis decreasing. Dependant edema remains 1+ bilaterally, no cyanosis. Breath sounds are well heard bilaterally w/o wheezing or bronchial breathing. Rare lower lobe medium rales posteriorly. Heart sounds distant and regular (mostly paced on monitor). Had phlebotomy yesterday ~550ml's. Hct today 49.7. Chemistries are good, renal function is good. Can be transferred back to telemetry. Medical regimen to remain the same. Hopefully nearing discharge. Will need close cardiac followup as outpatient. Should have repeat sleep study with CPAP titration after discharge. Fluid restriction and continued weight loss as outpatient. Objective - Vital Signs/Intake and Output Vital Signs (last 24 hours): Temp Pulse Resp BP Pulse Ox 98.1 F 65 29 H 94/52 L 98 12/08/17 08:34 12/08/17 08:34 12/08/17 08:34 12/08/17 08:34 12/08/17 08:34 Intake and Output: 12/07/17 12/08/17 23:59 11:59 Output Total 500 Balance -500 - Medications Medications: Current Medications Allopurinol (Zyloprim) 300 mg PO DAILY [facility] Last Admin: 12/08/17 08:31 Dose: 300 mg Apixaban (Eliquis) 5 mg PO Q12 [facility] PRN Reason: Protocol Last Admin: 12/08/17 08:30 Dose: 5 mg Carvedilol (Coreg) 6.25 mg PO Q12 [facility] Last Admin: 12/08/17 08:30 Dose: 6.25 mg Docusate Sodium (Colace) 100 mg PO BID PRN PRN Reason: Constipation Last Admin: 12/02/17 17:58 Dose: 100 mg Furosemide (Lasix) 40 mg IVP BID [facility] Last Admin: 12/08/17 08:30 Dose: 40 mg Levalbuterol HCl (Xopenex) 0.63 mg INH Q4H PRN PRN Reason: Shortness of Breath Last Admin: 12/04/17 19:39 Dose: 0.63 mg Mexiletine HCl (Mexiletine) 150 mg PO Q8 [facility] Last Admin: 12/08/17 08:31 Dose: 150 mg Mometasone Furoate (Asmanex Twisthaler 220 Mcg) 1 puff INH BID [facility] Last Admin: 12/08/17 08:29 Dose: 1 puff Montelukast Sodium (Singulair) 10 mg PO HS [facility] Last Admin: 12/07/17 21:10 Dose: 10 mg Ondansetron HCl (Zofran Inj) 4 mg IVP Q4 PRN PRN Reason: Nausea/Vomiting Last Admin: 12/07/17 21:35 Dose: 4 mg Pantoprazole Sodium (Protonix Ec Tab) 40 mg PO DAILY [facility] Last Admin: 12/08/17 08:31 Dose: 40 mg Sotalol HCl (Betapace) 160 mg PO BID [facility] Last Admin: 12/08/17 08:29 Dose: 160 mg Spironolactone (Aldactone) 50 mg PO DAILY [facility] Last Admin: 12/08/17 08:29 Dose: 50 mg - Labs Labs: 12/08/17 04:20 12/08/17 04:20 PT 27.4 Seconds (9.8-13.1) H 12/01/17 10:00 INR 2.4 (0.9-1.2) H 12/01/17 10:00 APTT 38.8 Seconds (25.6-37.1) H 12/01/17 10:00 Assessment and Plan (1) CHF exacerbation Status: Acute (2) Asthma Status: Chronic (3) Dilated cardiomyopathy Status: Chronic (4) Hypoxemia Status: Chronic (5) Obstructive sleep apnea syndrome in adult Status: Chronic
--- NOTE | 2017-12-08 11:07 | CP.PCM.CON ---
History of Present Illness - History of Present Illness History of Present Illness: This is a 57 yrs old male who is referred for a Hct of 54.4%. He has congestive cardiomyopathy for several years and has had a AICD placed. he has obstructive sleep apnea, and needs a Cpap machine every night. He has had secondary [id number] and has needed therapeutic phlebotomies every 3-4 months. Now his Hct is 54.4% and he is extremely short of breath. His chf has been difficult to control. He has never smoked and no h/o drug abuse. Past Patient History - Infectious Disease Hx of Infectious Diseases: None - Tetanus Immunizations Tetanus Immunization: Unknown - Past Medical History & Family History Past Medical History?: Yes - Past Social History Smoking Status: Never Smoked Chewing Tobacco Use: No Cigar Use: No Alcohol: Social Drugs: Denies Home Situation {Lives}: With Family - CARDIAC Hx Cardia Arrhythmia: Yes Hx Congestive Heart Failure: Yes Hx Internal Defibrillator: Yes Hx Peripheral Edema: Yes Other/Comment: Dilated cardiomyopathy. - PULMONARY Hx Asthma: Yes Hx Bronchitis: Yes Hx Pulmonary Embolism: Yes Hx Sleep Apnea: Yes - NEUROLOGICAL Hx Neurological Disorder: No - HEENT Hx Sinusitis: Yes Other/Comment: glasses - RENAL Hx Chronic Kidney Disease: Yes - ENDOCRINE/METABOLIC Other/Comment: Exogenous obesity - HEMATOLOGICAL/ONCOLOGICAL Hx Blood Disorders: No - INTEGUMENTARY Hx Dermatological Problems: No - MUSCULOSKELETAL/RHEUMATOLOGICAL Hx Arthritis: Yes Hx Falls: No - GASTROINTESTINAL Hx Gastrointestinal Disorders: No - GENITOURINARY/GYNECOLOGICAL Hx Genitourinary Disorders: No - PSYCHIATRIC Hx Psychophysiologic Disorder: No - SURGICAL HISTORY Other/Comment: defibrillator/pacemaker insertion - ANESTHESIA Hx Anesthesia: Yes Hx Anesthesia Reactions: No Hx Malignant Hyperthermia: No Meds Allergies/Adverse Reactions: Allergies Allergy/AdvReac Type Severity Reaction Status Date / Time grass pollen Allergy CONGESTION Verified 12/01/17 09:41 - Medications Medications: Current Medications Acetaminophen (Tylenol 325mg Tab) 650 mg PO Q6 PRN PRN Reason: Headache Allopurinol (Zyloprim) 300 mg PO DAILY [facility] Last Admin: 12/08/17 08:31 Dose: 300 mg Apixaban (Eliquis) 5 mg PO Q12 [facility] PRN Reason: Protocol Last Admin: 12/08/17 08:30 Dose: 5 mg Carvedilol (Coreg) 6.25 mg PO Q12 [facility] Last Admin: 12/08/17 08:30 Dose: 6.25 mg Docusate Sodium (Colace) 100 mg PO BID PRN PRN Reason: Constipation Last Admin: 12/02/17 17:58 Dose: 100 mg Furosemide (Lasix) 40 mg IVP BID [facility] Last Admin: 12/08/17 08:30 Dose: 40 mg Levalbuterol HCl (Xopenex) 0.63 mg INH Q4H PRN PRN Reason: Shortness of Breath Last Admin: 12/04/17 19:39 Dose: 0.63 mg Mexiletine HCl (Mexiletine) 150 mg PO Q8 [facility] Last Admin: 12/08/17 08:31 Dose: 150 mg Mometasone Furoate (Asmanex Twisthaler 220 Mcg) 1 puff INH BID [facility] Last Admin: 12/08/17 08:29 Dose: 1 puff Montelukast Sodium (Singulair) 10 mg PO HS [facility] Last Admin: 12/07/17 21:10 Dose: 10 mg Ondansetron HCl (Zofran Inj) 4 mg IVP Q4 PRN PRN Reason: Nausea/Vomiting Last Admin: 12/07/17 21:35 Dose: 4 mg Pantoprazole Sodium (Protonix Ec Tab) 40 mg PO DAILY [facility] Last Admin: 12/08/17 08:31 Dose: 40 mg Sotalol HCl (Betapace) 160 mg PO BID [facility] Last Admin: 12/08/17 08:29 Dose: 160 mg Spironolactone (Aldactone) 50 mg PO DAILY [facility] Last Admin: 12/08/17 08:29 Dose: 50 mg Physical Exam - Additional Findings Additional findings: Physical exam; Alert, very short of breath, obese neck; supple, no adenopathy chest; Scattered reles and rhonchi bilaterally Heart; Tachycardia, heart sounds are decreased, rhythm regular Abd; Obese, no mass , no h/s megaly Results - Vital Signs Recent Vital Signs: Last Vital Signs Temp 98.1 F 12/08/17 08:34 Pulse 65 12/08/17 08:34 Resp 29 H 12/08/17 08:34 BP 94/52 L 12/08/17 08:34 Pulse Ox 98 12/08/17 08:34 - Labs Result Diagrams: 12/08/17 04:20 03/27/18 04:20 Labs: Laboratory Results - last 24 hr 12/02/17 12/08/17 12/08/17 04:25 04:20 04:20 WBC 14.7 H RBC 4.98 Hgb 16.5 Hct 49.7 MCV 100.0 H MCH 33.2 H MCHC 33.2 RDW 18.8 H Plt Count 138 Sodium 139 Potassium 4.0 Chloride 99 Carbon Dioxide 30 Anion Gap 14 BUN 40 H Creatinine 1.1 Est GFR ( Amer) > 60 Est GFR (Non-Af Amer) > 60 Random Glucose 97 Calcium 9.0 Total Bilirubin 3.0 H AST 24 ALT 65 Alkaline Phosphatase 48 Total Protein 5.8 L Albumin 3.2 L Globulin 2.6 Albumin/Globulin Ratio 1.2 Adenovirus Antibody <1:8 Assessment & Plan - Assessment and Plan (Free Text) Assessment: Impression; Secondary polycythemia. Plan: Plan; therapeutic phlebotomy done and 549 ml of blood was removed. . Procedure was tolerated well,no drop in BP followingthe phlebotomy. Today he feels much better no shortness of breath, and he was able to sleep in bed for the first time. Will monitor the cbc - Date & Time Date: 12/08/17 Time: 11:25
--- NOTE | 2017-12-08 14:04 | CP.PCM.PN ---
Subjective - Date & Time of Evaluation Date of Evaluation: 12/07/17 Time of Evaluation: 08:00 - Subjective Subjective: Patient was seen and examined . Morbidly obese male sitting in RA saturating 96- 97 %. Feeling better today and was able to sleep last night in his bed. Edema to LE extremities much improved 1 +. With PVC -s in monitor , denies palpitations or chest pain. Status post phlebotomy yesterday 12/07 ( Hct 54) with removal 549 ml blood. Has been diuresing well almost 11 lbs fluid ( 307 LBS-- 296 lbs ) BUN / Cr 40/1.1 today Paula 3 Objective - Vital Signs/Intake and Output Vital Signs (last 24 hours): Temp Pulse Resp BP Pulse Ox 97.4 F L 65 24 89/53 L 94 L 12/08/17 12:00 12/08/17 12:00 12/08/17 12:00 12/08/17 12:00 12/08/17 12:00 Intake and Output: 12/08/17 12/08/17 06:59 18:59 Output Total 500 Balance -500 - Medications Medications: Current Medications Acetaminophen (Tylenol 325mg Tab) 650 mg PO Q6 PRN PRN Reason: Headache Last Admin: 12/08/17 11:03 Dose: 650 mg Allopurinol (Zyloprim) 300 mg PO DAILY [facility] Last Admin: 12/08/17 08:31 Dose: 300 mg Apixaban (Eliquis) 5 mg PO Q12 [facility] PRN Reason: Protocol Last Admin: 12/08/17 08:30 Dose: 5 mg Carvedilol (Coreg) 6.25 mg PO Q12 [facility] Last Admin: 12/08/17 08:30 Dose: 6.25 mg Docusate Sodium (Colace) 100 mg PO BID PRN PRN Reason: Constipation Last Admin: 12/02/17 17:58 Dose: 100 mg Furosemide (Lasix) 40 mg IVP BID [facility] Last Admin: 12/08/17 08:30 Dose: 40 mg Levalbuterol HCl (Xopenex) 0.63 mg INH Q4H PRN PRN Reason: Shortness of Breath Last Admin: 12/04/17 19:39 Dose: 0.63 mg Mexiletine HCl (Mexiletine) 150 mg PO Q8 [facility] Last Admin: 12/08/17 08:31 Dose: 150 mg Mometasone Furoate (Asmanex Twisthaler 220 Mcg) 1 puff INH BID [facility] Last Admin: 12/08/17 08:29 Dose: 1 puff Montelukast Sodium (Singulair) 10 mg PO HS [facility] Last Admin: 12/07/17 21:10 Dose: 10 mg Ondansetron HCl (Zofran Inj) 4 mg IVP Q4 PRN PRN Reason: Nausea/Vomiting Last Admin: 12/07/17 21:35 Dose: 4 mg Pantoprazole Sodium (Protonix Ec Tab) 40 mg PO DAILY [facility] Last Admin: 12/08/17 08:31 Dose: 40 mg Sotalol HCl (Betapace) 160 mg PO BID [facility] Last Admin: 12/08/17 08:29 Dose: 160 mg Spironolactone (Aldactone) 50 mg PO DAILY [facility] Last Admin: 12/08/17 08:29 Dose: 50 mg - Labs Labs: 12/08/17 04:20 12/08/17 04:20 PT 27.4 Seconds (9.8-13.1) H 12/01/17 10:00 INR 2.4 (0.9-1.2) H 12/01/17 10:00 APTT 38.8 Seconds (25.6-37.1) H 12/01/17 10:00 - Constitutional Appears: Non-toxic, No Acute Distress, Chronically Ill, Other (obese ) - Head Exam Head Exam: ATRAUMATIC, NORMOCEPHALIC - Eye Exam Eye Exam: EOMI, PERRL Pupil Exam: NORMAL ACCOMODATION - ENT Exam ENT Exam: Mucous Membranes Moist, Normal Exam - Neck Exam Additional comments: short , thick neck - Respiratory Exam Respiratory Exam: Rales (bibasilar ). absent: Rhonchi, Wheezes - Cardiovascular Exam Cardiovascular Exam: REGULAR RHYTHM, RRR, +S1, +S2. absent: JVD - GI/Abdominal Exam GI & Abdominal Exam: Soft, Normal Bowel Sounds. absent: Distended, Guarding, Rebound - Rectal Exam Rectal Exam: Deferred - Extremities Exam Extremities Exam: Normal Capillary Refill, Normal Inspection, Pedal Edema (1 +) . absent: Calf Tenderness - Back Exam Back Exam: NORMAL INSPECTION - Neurological Exam Neurological Exam: Alert, Awake, CN II-XII Intact, Oriented x3 - Psychiatric Exam Psychiatric exam: Normal Affect - Skin Skin Exam: Dry, Normal Color, Warm Assessment and Plan - Assessment and Plan (Free Text) Assessment: 57 yo male with history of Morbid Obesity, Asthma, severely dilated cardiomyopathy with EF 15 % , s/p AICD, HTN and previous DVT/PE came in because of progressively worsening SOB since for 3 weeks. Claimed that condition started after coming back from [facility] about 3 months ago. Patient admitted with CHF exacerbation , cardiology consulted . He was transferred to ICU for close monitoring on 12/04 due to multiple PVC-s on monitor.Was started on high dose lasix IV BID andaldactone underwent phlebotomy 12/07 wit removal of 549 Ml blood Today 12/08 -- Feeling better , able to sleep last night in the bed, saturating 96 % in RA. weight 296 lbs. Edema to LE much improved 1.Acute on chronic CHF exacerbation Severe dilated cardiomyopathy with EF 15 % heart failure secondary to left ventricular dysfunction ECHO done last month showed dilated cardiomyopathy with EF <15% Monitored in ICU for multiple PVC-s, bi/trigeminy seen on monitor. At present with few PVC-s on monitor Monitor electrolytes closely k , MG cardiology on board following on Lasix 40 mg IV bid continue Sotalol, coreg and aldactone Continue Na and fluid restriction s/p therapeutic Phlebotomy 12/07 with 549 ml blood removal .Hematology consulted . Patient has history of polycytemia Vera ? transfer to telemetry Possible discharge in Am if continuos to show improvement 2. Bronchial Asthma stable pulmonary consulted Asmanex 2 puff q 12hrs Duoneb via nebulizer q 4hrs prn Montelukast 10mg PO HS Steroids tapered off 3. History of Thromboembolism continue Eliquis 5mg PO q 12hrs 4. Sleep Apnea on CPAP at bedtime with supplemental oxygen Repeat sleep study as outpatient home O2 5. Morbid Obesity BMI 46 6. History of Polycytemia Vera Hematology consulted s/p Therapeutic Phlebotomy 7. Azotemia diuretic induced BUN / Cr improved from 50/1.3 to 40/1.1 on Lasix 40 mg BID 8. Leukocytosis-- trending down from 18 K -- 14 k , afebrile Procalcitonin is low <0.06 urine growing gram positive cocci ?/ contamination?? Follow up organ identification and sensitivities Steroids discontinued monitor for now 9. DVt prophylaxis on eliquis
--- NOTE | 2017-12-08 21:00 | CARD ---
APPROVED REPORT EKG Measurement Heart [id number] <Conclusion> AV sequential Bi-ventricular pacemaker rhythm with a very short AV delay and daul biventricular pacing spikes consider pacemaker analysis Abnormal ECG
[2017-12-09 06:09] LABS: HEMOGLOBIN 16.3 g/dL (12.0-18.0); MEAN CELL VOLUME 101.7 fl (80.0-94.0); MEAN CORPUSCULAR HEMOGLOBIN 33.4 pg (27.0-31.0); MEAN CORPUSCULAR HGB CONC 32.8 g/dL (33.0-37.0); RBC 4.89 Mil/uL (4.40-5.90); RED CELL DISTRIBUTION WIDTH 19.3 % (11.5-14.5); WHITE BLOOD COUNT 15.2 K/uL (4.8-10.8)
[2017-12-09 06:17] LABS: ALB/GLOB RATIO 1.2 (1.0-2.1); ALBUMIN 3.3 g/dL (3.5-5.0); ALT/SGPT 51 U/L (21-72); AST/SGOT 34 U/L (17-59); BLOOD UREA NITROGEN 36 mg/dl (9-20); CALCIUM 9.3 mg/dL (8.4-10.2); GFR AFRICAN-AMERICAN > 60; GFR NON-AFRICAN AMERICAN > 60
--- NOTE | 2017-12-09 09:21 | CP.PCM.DIS ---
Provider - Provider Date of Admission: 12/01/17 12:01 Attending physician: Horacio Underwood MD Time Spent in preparation of Discharge (in minutes): 30 Diagnosis - Discharge Diagnosis (1) CHF exacerbation Status: Acute Priority: High (2) Hypoxemic polycythemia Status: Chronic (3) Obstructive sleep apnea syndrome in adult Status: Chronic Priority: High Hospital Course - Lab Results Lab Results: Micro Results 12/06/17 10:20 Urine Urine Culture - Final No Growth (<1,000 CFU/ML) 12/01/17 10:00 Blood Blood Culture - Final NO GROWTH AFTER 5 DAYS 12/01/17 10:00 Blood Gram Stain - Final TEST NOT PERFORMED 12/02/17 21:17 Stool Ova and Parasite Concentrate Exam - Final 12/04/17 16:00 Naris MRSA Culture (Admit) - Final MRSA NOT DETECTED 12/03/17 03:55 Urine,Clean Catch Urine Culture - Final Gram Positive Cocci 12/01/17 05:19 Urine,Clean Catch Urine Culture - Final 10-50,000 CFU/ML. MULTIPLE SPECIES. PROBABLE CONTAMINATION. Most Recent Lab Values WBC 15.2 K/uL (4.8-10.8) H 12/09/17 04:20 RBC 4.89 Mil/uL (4.40-5.90) 12/09/17 04:20 Hgb 16.3 g/dL (12.0-18.0) 12/09/17 04:20 Hct 49.7 % (35.0-51.0) 12/09/17 04:20 MCV 101.7 fl (80.0-94.0) H 12/09/17 04:20 MCH 33.4 pg (27.0-31.0) H 12/09/17 04:20 MCHC 32.8 g/dL (33.0-37.0) L 12/09/17 04:20 RDW 19.3 % (11.5-14.5) H 12/09/17 04:20 Plt Count 141 K/uL (130-400) 12/09/17 04:20 MPV 10.9 fl (7.2-11.7) 12/07/17 05:15 Neut % (Auto) 77.2 % (50.0-75.0) H 12/07/17 05:15 Lymph % (Auto) 11.0 % (20.0-40.0) L 12/07/17 05:15 Gove % (Auto) 11.3 % (0.0-10.0) H 12/07/17 05:15 Eos % (Auto) 0.4 % (0.0-4.0) 12/07/17 05:15 Baso % (Auto) 0.1 % (0.0-2.0) 12/07/17 05:15 Neut # (Auto) 14.3 K/uL (1.8-7.0) H 12/07/17 05:15 Lymph # (Auto) 2.0 K/uL (1.0-4.3) 12/07/17 05:15 Gove # (Auto) 2.1 K/uL (0.0-0.8) H 12/07/17 05:15 Eos # (Auto) 0.1 K/uL (0.0-0.7) 12/07/17 05:15 Baso # (Auto) 0.0 K/uL (0.0-0.2) 12/07/17 05:15 Neutrophils % (Manual) 87 % (42-75) H 12/02/17 04:25 Band Neutrophils % 1 % (0-2) 12/02/17 04:25 Lymphocytes % (Manual) 9 % (20-50) L 12/02/17 04:25 Monocytes % (Manual) 3 % (0-10) 12/02/17 04:25 Platelet Estimate Normal (NORMAL) 12/02/17 04:25 Large Platelets Present 12/02/17 04:25 Anisocytosis (manual) Slight 12/02/17 04:25 Macrocytosis (manual) Slight 12/02/17 04:25 PT 27.4 Seconds (9.8-13.1) H 12/01/17 10:00 INR 2.4 (0.9-1.2) H 12/01/17 10:00 APTT 38.8 Seconds (25.6-37.1) H 12/01/17 10:00 pCO2 21 mm/Hg (35-45) L 12/01/17 09:51 pO2 105 mm/Hg (80-100) H 12/01/17 09:51 HCO3 24.7 mmol/L (21-28) 12/01/17 09:51 ABG pH 7.57 (7.35-7.45) H 12/01/17 09:51 ABG Total CO2 19.8 mmol/L (22-28) L 12/01/17 09:51 ABG O2 Saturation 100.0 % (95-98) H 12/01/17 09:51 ABG Base Excess -0.2 mmol/L (-2.0-3.0) 12/01/17 09:51 Tj Test Yes 12/01/17 09:51 ABG Potassium 4.2 mmol/L (3.6-5.2) 12/01/17 09:51 A-a O2 Difference 68.0 mm/Hg 12/01/17 09:51 Sodium 134.0 mmol/L (132-148) 12/01/17 09:51 Chloride 105.0 mmol/L (98-107) 12/01/17 09:51 Glucose 134 mg/dL (75-110) H 12/01/17 09:51 Lactate 1.9 mmol/L (0.7-2.1) 12/01/17 09:51 Vent Mode Nc 12/01/17 09:51 FiO2 28.0 % 12/01/17 09:51 Sodium 138 mmol/l (132-148) 12/09/17 04:20 Potassium 4.5 MMOL/L (3.6-5.0) 12/09/17 04:20 Chloride 97 mmol/L (98-107) L 12/09/17 04:20 Carbon Dioxide 30 mmol/L (22-30) 12/09/17 04:20 Anion Gap 16 (10-20) 12/09/17 04:20 BUN 36 mg/dl (9-20) H 12/09/17 04:20 Creatinine 1.1 mg/dl (0.8-1.5) 12/09/17 04:20 Est GFR ( Amer) > 60 12/09/17 04:20 Est GFR (Non-Af Amer) > 60 12/09/17 04:20 POC Glucose (mg/dL) 118 mg/dL (65-110) H 12/06/17 23:19 Random Glucose 110 mg/dL (75-110) 12/09/17 04:20 Calcium 9.3 mg/dL (8.4-10.2) 12/09/17 04:20 Phosphorus 3.8 mg/dl (2.5-4.5) 12/06/17 04:45 Magnesium 2.3 MG/DL (1.6-2.3) 12/06/17 04:45 Total Bilirubin 2.9 mg/dl (0.2-1.3) H 12/09/17 04:20 AST 34 U/L (17-59) 12/09/17 04:20 ALT 51 U/L (21-72) 12/09/17 04:20 Alkaline Phosphatase 51 U/L (38-126) 12/09/17 04:20 Troponin I 0.0210 ng/mL (0.00-0.120) 12/02/17 04:25 NT-Pro-B Natriuret Pep 07663 pg/ml (0-900) H 12/01/17 10:00 Total Protein 6.2 G/DL (6.3-8.2) L 12/09/17 04:20 Albumin 3.3 g/dL (3.5-5.0) L 12/09/17 04:20 Globulin 2.9 gm/dL (2.2-3.9) 12/09/17 04:20 Albumin/Globulin Ratio 1.2 (1.0-2.1) 12/09/17 04:20 Prostate Specific Ag 0.577 ng/ML (0.00-4.0) 12/04/17 04:50 Procalcitonin 0.06 NG/ML (0.19-0.49) L 12/06/17 08:42 Arterial Blood Potassium 4.2 mmol/L (3.6-5.2) 12/01/17 09:51 Urine Color Yellow (YELLOW) 12/06/17 10:20 Urine Clarity Clear (Clear) 12/06/17 10:20 Urine pH 6.0 (5.0-8.0) 12/06/17 10:20 Ur Specific [place] 1.011 (1.003-1.030) 12/06/17 10:20 Urine Protein Negative mg/dL (NEGATIVE) 12/06/17 10:20 Urine Glucose (UA) Neg mg/dL (Normal) 12/06/17 10:20 Urine Ketones Negative mg/dL (NEGATIVE) 12/06/17 10:20 Urine Blood Negative (NEGATIVE) 12/06/17 10:20 Urine Nitrate Negative (NEGATIVE) 12/06/17 10:20 Urine Bilirubin Negative (NEGATIVE) 12/06/17 10:20 Urine Urobilinogen 0.2-1.0 mg/dL (0.2-1.0) 12/06/17 10:20 Ur Leukocyte Esterase Neg Diane/uL (Negative) 12/06/17 10:20 Urine RBC (Auto) 1 /hpf (0-3) 12/06/17 10:20 Adenovirus Antibody <1:8 (<1:8) 12/02/17 04:25 Lyme IgG 18 kDa Band Nonreactive 12/02/17 04:25 Lyme IgG 23 kDa Band Nonreactive 12/02/17 04:25 Lyme IgG 28 kDa Band Nonreactive 12/02/17 04:25 Lyme IgG 30 kDa Band Nonreactive 12/02/17 04:25 Lyme IgG 39 kDa Band Nonreactive 12/02/17 04:25 Lyme IgG 41 kDa Band Nonreactive 12/02/17 04:25 Lyme IgG 45 kDa Band Nonreactive 12/02/17 04:25 Lyme IgG 58 kDa Band Nonreactive 12/02/17 04:25 Lyme IgG 66 kDa Band Nonreactive 12/02/17 04:25 Lyme IgG 93 kDa Band Nonreactive 12/02/17 04:25 Lyme IgG W Blot Interp Negative (Negative) 12/02/17 04:25 Lyme IgM 23 kDa Band Nonreactive 12/02/17 04:25 Lyme IgM 39 kDa Band Nonreactive 12/02/17 04:25 Lyme IgM 41 kDa Band Nonreactive 12/02/17 04:25 Lyme IgM W Blot Interp Negative (Negative) 12/02/17 04:25 Influenza Typ A,B (EIA) Negative for flu a/b (NEGATIVE) 12/06/17 10:20 Blood Parasites Smear Negative (NEGATIVE) 12/02/17 09:09 Rickettsia IgG Titer (()) 12/02/17 04:25 Rickettsia IgG Ab Not detected 12/02/17 04:25 Rickettsia IgM Titer (()) 12/02/17 04:25 Rickettsia IgM Ab Not detected 12/02/17 04:25 Bld Parasites Quantity Cancelled 12/02/17 04:25 Blood Parasites ID Cancelled 12/02/17 04:25 - Hospital Course Hospital Course: 57 yo male with history of Morbid Obesity, Asthma, severely dilated cardiomyopathy with EF 15 % , s/p AICD, HTN and previous DVT/PE came in because of progressively worsening SOB since for 3 weeks. Claimed that condition started after coming back from [facility] about 3 months ago. Patient admitted with CHF exacerbation , cardiology consulted . He was transferred to ICU for close monitoring on 12/04 due to multiple PVC-s on monitor.Was started on high dose lasix IV BID andaldactone underwent phlebotomy 12/07 wit removal of 549 Ml blood Today 12/09 -- Feeling baseline , able to sleep last night in the bed, saturating 96 % in RA. weight 296 lbs. Edema to LE much improved . stable for discharge home with home meds, follow up with CHF clinic at [place] and with EP, PCP as well. 1.Acute on chronic CHF exacerbation Severe dilated cardiomyopathy with EF 15 % heart failure secondary to left ventricular dysfunction ECHO done last month showed dilated cardiomyopathy with EF <15% Monitored in ICU for multiple PVC-s, bi/trigeminy seen on monitor. At present with few PVC-s on monitor Monitor electrolytes closely k , MG cardiology on board following on Lasix 40 mg PO DAILY continue Sotalol, coreg and aldactone Continue Na and fluid restriction s/p therapeutic Phlebotomy 12/07 with 549 ml blood removal .Hematology consulted . Patient has history of polycytemia Vera ? 2. Bronchial Asthma stable pulmonary consulted Asmanex 2 puff q 12hrs Duoneb via nebulizer q 4hrs prn Montelukast 10mg PO HS Steroids tapered off 3. History of Thromboembolism continue Eliquis 5mg PO q 12hrs 4. Sleep Apnea on CPAP at bedtime with supplemental oxygen Repeat sleep study as outpatient home O2 5. Morbid Obesity BMI 46 6. History of Polycytemia Vera Hematology consulted s/p Therapeutic Phlebotomy 7. Azotemia diuretic induced BUN / Cr improved from 50/1.3 to 40/1.1 on Lasix 40 mg BID 8. Leukocytosis-- trending down from 18 K -- 14 k , afebrile Procalcitonin is low <0.06 urine growing gram positive cocci ?/ contamination?? Follow up organ identification and sensitivities Steroids discontinued monitor for now 9. DVt prophylaxis on eliquis Discharge Exam - Head Exam Head Exam: ATRAUMATIC, NORMOCEPHALIC - Eye Exam Eye Exam: EOMI, Normal appearance, PERRL - ENT Exam ENT Exam: Mucous Membranes Moist, Normal Oropharynx - Neck Exam Neck exam: Full Rom, Normal Inspection - Respiratory Exam Respiratory Exam: Clear to PA & Lateral, NORMAL BREATHING PATTERN - Cardiovascular Exam Cardiovascular Exam: RRR, +S1, +S2 - GI/Abdominal Exam GI & Abdominal Exam: Normal Bowel Sounds, Soft. absent: Mass, Tenderness - Extremities Exam Extremities exam: normal capillary refill, pedal pulses present - Back Exam Back exam: absent: CVA tenderness (L), CVA tenderness (R) - Neurological Exam Neurological exam: Alert, Oriented x3 - Psychiatric Exam Psychiatric exam: Normal Affect, Normal Mood Discharge Plan - Discharge Medications Prescriptions: Allopurinol [Zyloprim] 300 mg PO DAILY #30 tab Apixaban [Eliquis] 5 mg PO Q12 #60 tab Carvedilol [Coreg] 6.25 mg PO Q12 #60 tab Furosemide [Lasix] 40 mg PO DAILY #60 tab Mexiletine 150 mg PO Q8 #90 cap Montelukast [Singulair] 10 mg PO HS #30 tab Sotalol HCl [Sotalol] 160 mg PO BID #60 tablet Spironolactone [Aldactone] 50 mg PO DAILY #30 tab Tiotropium Cocoa [Spiriva Respimat] 2 puff IH DAILY #1 mist.inhal - Follow Up Plan Condition: FAIR Disposition: HOME/ ROUTINE Instructions: Asthma, Adult (DC), Heart Failure, Adult (DC) Referrals: Cale Saunders MD [Staff Provider] - Mariano Aguilera MD [Family Provider] -
--- NOTE | 2017-12-09 09:24 | CP.PCM.PN ---
Subjective - Date & Time of Evaluation Date of Evaluation: 12/09/17 Time of Evaluation: 09:00 - Subjective Subjective: Has been feeling well over last 24 hrs Slept in bed used C- PAP machine last night Has been going to BR and back to bed without significant dyspnoea BP 90/60 mm Hg ( while standing up) No rales, no gallop could be appreciated EKG shows A-paced/V- paced rhythm (P-R interval ~60 msec) Labs:HCT still 49.7% BUN keeps dropping/ Creatinin 1.1 Mg Electrolytes normal ( K+ normal on Aldactone) Lasix being held due to syst BP <96 mm Hg Pt denies light headedness on sitting up or walking Objective - Vital Signs/Intake and Output Vital Signs (last 24 hours): Temp Pulse Resp BP Pulse Ox 98.0 F 60 17 92/61 L 98 12/09/17 08:04 12/09/17 08:04 12/09/17 08:04 12/09/17 08:04 12/09/17 08:04 - Medications Medications: Current Medications Acetaminophen (Tylenol 325mg Tab) 650 mg PO Q6 PRN PRN Reason: Headache Last Admin: 12/08/17 11:03 Dose: 650 mg Allopurinol (Zyloprim) 300 mg PO DAILY [facility] Last Admin: 12/08/17 08:31 Dose: 300 mg Apixaban (Eliquis) 5 mg PO Q12 MICKI PRN Reason: Protocol Last Admin: 12/08/17 20:26 Dose: 5 mg Carvedilol (Coreg) 6.25 mg PO Q12 [facility] Last Admin: 12/08/17 20:26 Dose: 6.25 mg Docusate Sodium (Colace) 100 mg PO BID PRN PRN Reason: Constipation Last Admin: 12/02/17 17:58 Dose: 100 mg Furosemide (Lasix) 40 mg IVP BID [facility] Last Admin: 12/08/17 16:26 Dose: Not Given Levalbuterol HCl (Xopenex) 0.63 mg INH Q4H PRN PRN Reason: Shortness of Breath Last Admin: 12/04/17 19:39 Dose: 0.63 mg Mexiletine HCl (Mexiletine) 150 mg PO Q8 [facility] Last Admin: 12/09/17 00:06 Dose: 150 mg Mometasone Furoate (Asmanex Twisthaler 220 Mcg) 1 puff INH BID [facility] Last Admin: 12/08/17 16:25 Dose: 1 puff Montelukast Sodium (Singulair) 10 mg PO HS [facility] Last Admin: 12/08/17 22:08 Dose: 10 mg Ondansetron HCl (Zofran Inj) 4 mg IVP Q4 PRN PRN Reason: Nausea/Vomiting Last Admin: 12/07/17 21:35 Dose: 4 mg Pantoprazole Sodium (Protonix Ec Tab) 40 mg PO DAILY [facility] Last Admin: 12/08/17 08:31 Dose: 40 mg Sotalol HCl (Betapace) 160 mg PO BID [facility] Last Admin: 12/08/17 16:25 Dose: 160 mg Spironolactone (Aldactone) 50 mg PO DAILY [facility] Last Admin: 12/08/17 08:29 Dose: 50 mg - Labs Labs: 12/09/17 04:20 12/09/17 04:20 PT 27.4 Seconds (9.8-13.1) H 12/01/17 10:00 INR 2.4 (0.9-1.2) H 12/01/17 10:00 APTT 38.8 Seconds (25.6-37.1) H 12/01/17 10:00
[2017-12-09] MEDS: Pantoprazole 40 mg EC Tab PO SCH (09:31)
[2017-12-09] MEDS: Mometasone 220 mcg/puff-14 puff Inh INH SCH (09:34)
[2017-12-09 11:55] VITALS: BP 103/75; PULSE 69; RESP 19; TEMP 97.6; O2SAT 96
--- NOTE | 2017-12-09 12:00 | CP.PCM.PN ---
Subjective - Date & Time of Evaluation Date of Evaluation: 12/09/17 Time of Evaluation: 11:56 - Subjective Subjective: Pt is doing very well. he was able to ambulate without any shortness of breath his HCT is 49.4%.and PO2 is 98%. he is a little hypotensive so his discharge was held. Will sign off case. Would suggest doing a CBC q month Objective - Vital Signs/Intake and Output Vital Signs (last 24 hours): Temp Pulse Resp BP Pulse Ox 97.6 F 69 19 103/75 96 12/09/17 11:55 12/09/17 11:55 12/09/17 11:55 12/09/17 11:55 12/09/17 11:55 - Medications Medications: Current Medications Acetaminophen (Tylenol 325mg Tab) 650 mg PO Q6 PRN PRN Reason: Headache Last Admin: 12/08/17 11:03 Dose: 650 mg Allopurinol (Zyloprim) 300 mg PO DAILY [facility] Last Admin: 12/09/17 11:34 Dose: 300 mg Apixaban (Eliquis) 5 mg PO Q12 [facility] PRN Reason: Protocol Last Admin: 12/09/17 09:32 Dose: 5 mg Carvedilol (Coreg) 6.25 mg PO Q12 [facility] Last Admin: 12/09/17 09:33 Dose: Not Given Docusate Sodium (Colace) 100 mg PO BID PRN PRN Reason: Constipation Last Admin: 12/02/17 17:58 Dose: 100 mg Furosemide (Lasix) 40 mg IVP BID [facility] Last Admin: 12/09/17 09:32 Dose: Not Given Levalbuterol HCl (Xopenex) 0.63 mg INH Q4H PRN PRN Reason: Shortness of Breath Last Admin: 12/04/17 19:39 Dose: 0.63 mg Mexiletine HCl (Mexiletine) 150 mg PO Q8 [facility] Last Admin: 12/09/17 09:38 Dose: 150 mg Mometasone Furoate (Asmanex Twisthaler 220 Mcg) 1 puff INH BID [facility] Last Admin: 12/09/17 09:34 Dose: 1 puff Montelukast Sodium (Singulair) 10 mg PO HS [facility] Last Admin: 12/08/17 22:08 Dose: 10 mg Ondansetron HCl (Zofran Inj) 4 mg IVP Q4 PRN PRN Reason: Nausea/Vomiting Last Admin: 12/07/17 21:35 Dose: 4 mg Pantoprazole Sodium (Protonix Ec Tab) 40 mg PO DAILY [facility] Last Admin: 12/09/17 09:31 Dose: 40 mg Sotalol HCl (Betapace) 160 mg PO BID [facility] Last Admin: 12/09/17 09:39 Dose: 160 mg Spironolactone (Aldactone) 50 mg PO DAILY [facility] Last Admin: 12/09/17 09:34 Dose: 50 mg - Labs Labs: 12/09/17 04:20 12/09/17 04:20 PT 27.4 Seconds (9.8-13.1) H 12/01/17 10:00 INR 2.4 (0.9-1.2) H 12/01/17 10:00 APTT 38.8 Seconds (25.6-37.1) H 12/01/17 10:00
== END 2017-12-09 15:23 | disposition home or self-care (01) | DRG 292 ==
LOC: H.ER 09:32 → H.ERHOLD 12:01 → H.TEL 14:30 → H.ICU/CCU 12-04 15:33 → H.TEL 12-08 21:05
PROC: 5A09457 Assistance with Respiratory Ventilation, 24-96 Consecutive Hours, Continuous Positive Airway Pressure (ICD-10-PCS; principal; 2017-12-01)
PROC: 3E0F7GC Introduction of Other Therapeutic Substance into Respiratory Tract, Via Natural or Artificial Opening (ICD-10-PCS; 2017-12-01)
PROC: 059Y3ZZ Drainage of Upper Vein, Percutaneous Approach (ICD-10-PCS; 2017-12-08)
DX: I13.0 Hypertensive heart and chronic kidney disease with heart failure and stage 1 through stage 4 chronic kidney disease, or unspecified chronic kidney disease (principal); I50.1 Left ventricular failure, unspecified; Z68.42 Body mass index [BMI] 45.0-49.9, adult; E87.3 Alkalosis; D75.1 Secondary polycythemia; N18.3 Chronic kidney disease, stage 3 (moderate); I42.0 Dilated cardiomyopathy; R09.02 Hypoxemia; E66.01 Morbid (severe) obesity due to excess calories; E87.5 Hyperkalemia; G47.33 Obstructive sleep apnea (adult) (pediatric); I48.2 Chronic atrial fibrillation; J45.909 Unspecified asthma, uncomplicated; I49.3 Ventricular premature depolarization; D72.828 Other elevated white blood cell count; M19.90 Unspecified osteoarthritis, unspecified site; Z79.01 Long term (current) use of anticoagulants; Z86.711 Personal history of pulmonary embolism; Z86.718 Personal history of other venous thrombosis and embolism; Z87.01 Personal history of pneumonia (recurrent); Z95.810 Presence of automatic (implantable) cardiac defibrillator; Z99.81 Dependence on supplemental oxygen; Z87.442 Personal history of urinary calculi